=== PATIENT | male | born 2000 | race Caucasian/White ===

== ENCOUNTER 2023-05-22 22:53 | Emergency (ER) | payer OTHER, SELFPAY ==
[2023-05-22 22:57] VITALS: BP 137/81; PULSE 87; RESP 16; TEMP 36.9; O2SAT 98; BMI 38.4
--- NOTE | 2023-05-22 23:12 | ED.EAR1 ---
HPI - Ear Problem General Chief complaint: Ear Stated complaint: Earache, Nausea/Vomiting Time Seen by Provider: 05/22/23 23:09 Source: patient Mode of arrival: walk-in Limitations: no limitations History of Present Illness HPI Narrative: states he finished antibiotics for ear infection last week. Today acute onset of ear pressure. Feels like someone is cuffing his ear with their hand. Has pain of both ears and has been vomiting. Was dry heaving and at the end of dry heaving brought up some blood. No abdominal pain. Nausea was worse in the car on the way to the hospital. No fever or headache Related Data Home Medications Medication Instructions Recorded Confirmed No Known Home Medications 05/22/23 05/22/23 Allergies Allergy/AdvReac Type Severity Reaction Status Date / Time clindamycin Allergy Unknown Verified 05/22/23 23:06 ventolin Allergy Unknown Uncoded 05/22/23 23:06 Review of Systems ROS Status of ROS 10 or more systems reviewed and unremarkable except as noted in history and below [facility] Social History Smoking status: Current every day smoker Exam Constitutional Vital Signs, click to edit/add: Last Vital Signs Temp 98.5 F 05/22/23 22:57 Pulse 87 05/22/23 22:57 Resp 16 05/22/23 22:57 BP 137/81 05/22/23 22:57 Pulse Ox 98 05/22/23 22:57 O2 Del Method Room Air 05/22/23 22:57 Common normals: no apparent distress, average body habitus, oriented x3, no limitations, healthy appearing, alert and well nourished [facility] Common normals: normocephalic and head/scalp atraumatic Other: bilat red TM Eye Common normals: EOMs intact bilaterally and conjunctivae normal Respiratory Common normals: normal respiratory effort, no retractions and no use of accessory muscles Cardio Common normals: regular rate, regular rhythm, S1 normal heart sound and S2 normal heart sound GI Common normals: Normal to inspection, nondistended, normoactive bowel sounds present, soft to palpation and non-tender Extremity Common normals: normal to inspection and full ROM Neuro Common normals: oriented x3, CN's II-XII intact bilaterally, moves all extremities and no focal motor deficits Psych Appearance: grossly normal Course Vital Signs Vital signs: Vital Signs Temperature 98.5 F 05/22/23 22:57 Pulse Rate 87 05/22/23 22:57 Respiratory Rate 16 05/22/23 22:57 Blood Pressure 137/81 05/22/23 22:57 Pulse Oximetry 98 05/22/23 22:57 Oxygen Delivery Method Room Air 05/22/23 22:57 Temperature 98.5 F 05/22/23 22:57 Pulse Rate 87 05/22/23 22:57 Respiratory Rate 16 05/22/23 22:57 Blood Pressure 137/81 05/22/23 22:57 Pulse Oximetry 98 05/22/23 22:57 Oxygen Delivery Method Room Air 05/22/23 22:57 Medical Decision Making MDM Narrative Medical decision making narrative: patient presents with bilat ear pain. Found to have bilat otitis media. ear pain associated with nausea and vomiting. Symptoms of nausea worse when he was riding in the car. Was dry heaving before coming in and states did have some blood a the end of dry heaving. Feeling better after treatment in the department with zofran, Rocephin and solumedrol. Discharged with augmentin and zofran and is recommended to follow up with his doctor in the next couple of days Discharge Plan Discharge Chief Complaint: Ear Clinical Impression: Otitis media, Nausea & vomiting Patient Disposition: Home, Self-Care Prescriptions / Home Meds: No Action No Known Home Medications Instructions: Ear Infection (ED), Acute Nausea and Vomiting (DC) Additional Instructions: follow up with Dr Maurer within a couple of days Stand Alone Forms: Portal Instructions Referrals: Randy Maurer DO [Primary Care Provider] - 1 week
[2023-05-22 23:50] LABS: Basophils Absolute Auto 0.1 10^3/uL (0.0-0.1); Basophils Percent Auto 0.8 % (0.2-2.0); Eosinophils Absolute Auto 0.4 10^3/uL (0.0-0.7); Eosinophils Percent Auto 3.4 % (0.9-7.0); Hematocrit 48.1 % (42.0-54.0); Hemoglobin 16.4 g/dL (14.0-18.0); Immature Granulocytes Abs Auto 0.04 10^3/uL (0.00-0.03); Immature Granulocytes Pct Auto 0.4 % (0.0-0.5); Lymphocytes Absolute Auto 2.8 10^3/uL (1.2-3.8); Lymphocytes Percent Auto 27.2 % (20.5-60.0); Mean Corpuscular HGB Conc 34.1 g/dL (29.9-35.2); Mean Corpuscular Hemoglobin 30.8 pg (25.9-34.0); Mean Corpuscular Volume 90.2 fL (80.0-94.0); Mean Platelet Volume 10.5 fL (9.5-13.5); Monocytes Absolute Auto 0.8 10^3/uL (0.3-0.8); Neutrophils Absolute Auto 6.3 10^3/uL (1.4-6.5); Neutrophils Percent Auto 60.2 % (43.0-75.0); Platelet Count 262 10^3/uL (150-450); Red Blood Count 5.33 10^6/uL (4.70-6.10); Red Cell Distribution Width 12.5 % (11.0-15.0); White Blood Count 10.4 10^3/uL (4.0-11.0)
[2023-05-22] MEDS: ONDANSETRON PF 4 MG/2 ML VIAL IV (23:54)
[2023-05-22] MEDS: 0.9 % SODIUM CHLORIDE 1,000 ML 999 ML IV (23:55)
[2023-05-22] MEDS: CEFTRIAXONE 1,000 MG in 0.9 % SODIUM CHLORIDE 50 ML 100 MG IV (23:55)
[2023-05-22] MEDS: METHYLPREDNISOLONE SOD SUCC PF 125 MG/2 ML VIAL IVP (23:55)
[2023-05-23 00:04] LABS: Anion Gap 12.5; BUN Creatinine Ratio 17.4; Calcium 8.7 mg/dL (8.5-10.1); Carbon Dioxide 28.7 mmol/L (21.0-32.0); Chloride 106 mmol/L (98-107); Estimated GFR (African America >60 (>=60); Estimated GFR (Non-African Ame >60 (>=60); Glucose 82 mg/dL (74-106); Potassium 4.2 mmol/L (3.5-5.1); Sodium 143 mmol/L (136-145)
== END 2023-05-23 01:24 | disposition home or self-care (01) ==
PROVIDERS: Emergency Provider Internal Medicine; PCP Internal Medicine
DX: H66.93 Otitis media, unspecified, bilateral (principal); R11.2 Nausea with vomiting, unspecified; F17.210 Nicotine dependence, cigarettes, uncomplicated
CPT/HCPCS: 36415; 80048; 85025; 96361; 96365; 96375; 99284; J2930

== ENCOUNTER 2023-10-15 21:48 | Emergency (ER) | payer OTHER, SELFPAY ==
--- OUTSIDE RECORDS SUMMARY | 2023-10-15 21:54 | XMS_ITS | CCD ---
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 Name Role Phone TREY LEMA Primary Care Physician Asmita Linares Attending Unavailable MADDIE HAGEN Attending Unavailable Srikanth Mathews Attending Unavailable SALAMBebeto Attending Unavailable SALAMBebeto Attending Unavailable SALAMBebeto Attending Unavailable SALAMBebeto Admitting Unavailable Jeremy Griffin Attending Unavailable MEAGHAN IVY Attending Unavailable Allergies Allergy Classification Reported Allergen(s) Allergy Type Date of Onset Reaction(s) Facility (16 sources) Albuterol; Translations: [albuterol] Drug Allergy Unknown [facility] (20 sources) Clindamycin; Translations: [clindamycin topical] Drug Allergy 2 Swelling (morphologic abnormality), Eruption of skin (disorder) [facility] Comment on above: applied to pimple on lip and had localized swelling of lip (1 source) Clindamycin; Translations: [Clindagel] Drug Allergy 2 [facility] Repository Medications Current Medications Medication Drug Class(es) Dates Sig (Normalized) Sig (Original) budesonide 3 mg delayed release oral capsule (5 sources) Corticosteroid Start: 05-13-2022 take 3 capsules by mouth once daily in the morning budesonide 3 mg oral delayed release capsule 9 mg = 3 cap(s), Oral, qAM, # 90 cap(s), Refills(s) 0, Pharmacy: [facility], 180, cm, 05/13/22 13:52:00 EDT, Height/Length Dosing, 124, kg, 05/13/22 13:52:00 EDT, Weight Dosing Start Date: 05/13/22 Status: Ordered dicyclomine hydrochloride 20 mg oral tablet (11 sources) Anticholinergic Start: 04-09-2022 End: 05-17-2022 take 1 tablet by mouth four times daily as needed for muscle spasms dicyclomine 20 mg Tab 20 mg = 1 tab(s), Oral, QID, PRN Spasm, Refills(s) 0 Start Date: 04/09/22 Status: Ordered Start: 03-23-2022 End: 03-30-2022 take 1 tablet by mouth three times daily dicyclomine 20 mg Tab 20 mg = 1 tab(s), Oral, TID, X 7 day(s), # 21 tab(s), Refills(s) 0, Pharmacy: [facility], 180, cm, 03/23/22 6:35:00 EDT, Height/Length Dosing, 127.1, kg, 03/23/22 6:35:00 EDT, Weight Dosing Start Date: 03/23/22 Stop Date: 03/30/22 Status: Ordered famotidine 40 mg oral tablet (2 sources) Histamine-2 Receptor Antagonist Start: 04-09-2022 take 1 tablet by mouth once daily at bedtime Pepcid 40 mg Tab 40 mg = 1 tab(s), Oral, Once a day (at bedtime), Refills(s) 0, Control of stomach acid Start Date: 04/09/22 Status: Ordered hydrocortisone 5 mg/ml topical cream (1 source) Corticosteroid Start: 01-16-2023 End: 01-21-2023 hydrocortisone Top 0.5% Crm 1 larisa, Topical, BID for 5 day(s), 14 gm, Refill(s) 0, [facility], 180, cm, 01/16/23 13:30:00 EDT, Height/Length Dosing, 77.5, kg, 01/16/23 13:30:00 EDT, Weight Dosing Start Date: 01/16/23 Stop Date: 01/21/23 Status: Ordered meclizine hydrochloride 25 mg chewable tablet (9 sources) Antiemetic Start: 04-07-2022 take 1 tablet by mouth three times daily as needed for dizziness meclizine 25 mg oral tablet, chewable 25 mg = 1 tab(s), Chewed, TID, PRN for dizziness, # 30 tab(s), Refills(s) 0, Pharmacy: [facility], 180, cm, 04/07/22 17:06:00 EDT, Height/Length Dosing, 127, kg, 04/07/22 17:06:00 EDT, Weight Dosing Start Date: 04/07/22 Status: Ordered mupirocin 0.02 mg/mg topical ointment (1 source) RNA Synthetase Inhibitor Antibacterial Start: 02-05-2022 End: 02-12-2022 mupirocin Top 2% Oint 1 larisa, Topical, TID for 7 day(s), 22 gm, Refill(s) 0, [id number], 176.5, cm, 02/05/22 15:44:00 EDT, Height/Length Dosing, 130.2, kg, 02/05/22 15:44:00 EDT, Weight Dosing Start Date: 02/05/22 Stop Date: 02/12/22 Status: Ordered naproxen 500 mg delayed release oral tablet (10 sources) Nonsteroidal Anti-inflammatory Drug Start: 03-29-2022 take 1 tablet by mouth twice daily as needed for pain naproxen 500 mg oral enteric coated tablet 500 mg = 1 tab(s), Oral, BID, PRN Pain, # 24 tab(s), Refills(s) 0, Pharmacy: [facility], 180.3, cm, 03/29/22 2:21:00 EDT, Height/Length Dosing, 127, kg, 03/29/22 2:21:00 EDT, Weight Dosing Start Date: 03/29/22 Status: Ordered omeprazole 40 mg delayed release oral capsule (15 sources) Proton Pump Inhibitor Start: 04-09-2022 take 1 capsule by mouth once daily omeprazole 40 mg Cap-DR 40 mg = 1 cap(s), Oral, Daily, # 90 cap(s), Refills(s) 0, Pharmacy: [facility], 180, cm, 04/21/22 10:10:00 EDT, Height/Length Dosing, 126.6, kg, 04/21/22 10:10:00 EDT, Weight Dosing Start Date: 05/03/22 Status: Ordered Start: 03-23-2022 End: 03-30-2022 take 1 capsule by mouth once daily omeprazole 40 mg Cap-DR 40 mg = 1 cap(s), Oral, Daily, X 7 day(s), # 7 cap(s), Refills(s) 0, Pharmacy: [facility], 180, cm, 03/23/22 6:35:00 EDT, Height/Length Dosing, 127.1, kg, 03/23/22 6:35:00 EDT, Weight Dosing Start Date: 03/23/22 Stop Date: 03/30/22 Status: Ordered ondansetron 4 mg oral tablet (12 sources) Serotonin-3 Receptor Antagonist Start: 11-25-2020 take 1 tablet by mouth four times daily as needed for nausea Zofran ODT 4 mg Tab 4 mg = 1 tab(s), Oral, QID, PRN Nausea/Vomiting, # 8 tab(s), Refills(s) 0 Start Date: 11/25/20 Status: Ordered polyethylene glycol 3350 332045 mg / potassium chloride 1480 mg / sodium bicarbonate 5720 mg / sodium chloride 95950 mg powder for oral solution (1 source) Osmotic Laxative Start: 04-12-2022 NuLYTELY [place] oral powder for reconstitution See Instructions, 1 EA, Refill(s) 0, Prior to colonoscopy., [facility], 180, cm, 04/12/22 9:35:00 EDT, Height/Length Dosing, 126.6, kg, 04/12/22 9:35:00 EDT, Weight Dosing Start Date: 04/12/22 Status: Ordered predniSONE 20 mg oral tablet (12 sources) Start: 01-20-2021 take 3 tablets by mouth once daily predniSONE 20 mg Tab 3, Oral, Daily, # 15 tab(s), Refills(s) 0, Pharmacy: [facility] #[id number], 180, cm, 01/20/21 12:36:00 EDT, Height/Length Dosing, 126.3, kg, 01/20/21 12:36:00 EDT, Weight Dosing Start Date: 01/20/21 Status: Ordered promethazine hydrochloride 12.5 mg rectal suppository (20 sources) Phenothiazine Start: 03-29-2022 take 12.5 mg rectal route every eight hours as needed for nausea Phenergan 12.5 mg Supp 12.5 mg = 1 supp, Rectal, q8hr, PRN Nausea, # 10 EA, Refills(s) 0, Pharmacy: [facility], 180.3, cm, 03/29/22 2:21:00 EDT, Height/Length Dosing, 127, kg, 03/29/22 2:21:00 EDT, Weight Dosing Start Date: 03/29/22 Status: Ordered Start: 03-23-2022 take 1 tablet by rashard th three times daily promethazine 25 mg Tab 25 mg = 1 tab(s), Oral, TID, # 15 tab(s), Refills(s) 0, Pharmacy: [facility], 180, cm, 03/23/22 6:35:00 EDT, Height/Length Dosing, 127.1, kg, 03/23/22 6:35:00 EDT, Weight Dosing Start Date: 03/23/22 Status: Ordered Start: 01-20-2021 take 5 mL by mouth e very six hours for cough Promethazine DM oral syrup 5 mL, Oral, q6hr for cough, 120 mL, Refill(s) 0, [id number], 180, cm, 01/20/21 12:36:00 EDT, Height/Length Dosing, 126.3, kg, 01/20/21 12:36:00 EDT, Weight Dosing Start Date: 01/20/21 Status: Ordered Zofran ODT 4 mg Tab-Dis (12 sources) Start: 03-29-2023 take 1 tablet by mouth every eight hours as needed for nausea Zofran ODT 4 mg Tab-Dis 4 mg = 1 tab(s), Oral, q8hr, PRN Nausea/Vomiting, # 16 tab(s), Refills(s) 0, Pharmacy: [facility], 180, cm, 03/29/23 2:12:00 EDT, Height/Length Dosing, 126.5, kg, 03/29/23 2:12:00 EDT, Weight Dosing Start Date: 03/29/23 Status: Ordered Start: 03-21-2022 take 1 tablet by rashard th every eight hours as needed for nausea Zofran ODT 4 mg Tab-Dis 4 mg = 1 tab(s), Oral, q8hr, PRN Nausea/Vomiting, # 12 tab(s), Refills(s) 0, Pharmacy: [facility], 176.5, cm, 03/21/22 3:54:00 EDT, Height/Length Dosing, 130.2, kg, 03/21/22 3:54:00 EDT, Weight Dosing Start Date: 03/21/22 Status: Ordered Problems Problem Classification Problem Date Documented Date Episodic/Chronic Abdominal pain (17 sources) Generalized abdominal pain; Translations: [Generalized abdominal pain] Onset: 04-12-2022 Episodic Asthma (12 sources) Asthma 08-19-2014 Chronic Conditions associated with dizziness or vertigo (1 source) Labyrinthitis; Translations: [Labyrinthitis, unspecified ear] Onset: 04-07-2022 Episodic Lymphadenitis (1 source) Nonspecific mesenteric adenitis; Translations: [Nonspecific mesenteric lymphadenitis] Onset: 03-29-2022 Episodic Nausea and vomiting (12 sources) Nausea; Translations: [Nausea] Onset: 03-21-2022 Episodic Noninfectious gastroenteritis (7 sources) Noninfectious enteritis; Translations: [Noninfective gastroenteritis and colitis, unspecified] Onset: 05-13-2022 Episodic Nonspecific chest pain (1 source) Chest pain; Translations: [Other chest pain] Onset: 05-04-2022 Episodic Other lower respiratory disease (1 source) Dyspnea; Translations: [Dyspnea, unspecified] Onset: 03-21-2022 Episodic Other nutritional; endocrine; and metabolic disorders (1 source) Obese class II; Translations: [Body mass index (BMI) 38.0-38.9, adult] Onset: 02-05-2022 Chronic Other skin disorders (1 source) Localized swelling, mass and lump, head; Translations: [Localized swelling, mass and lump, head] Onset: 02-05-2022 Episodic Other skin disorders (1 source) Eruption; Translations: [Rash and other nonspecific skin eruption] Onset: 01-16-2023 Episodic Other upper respiratory infections (1 source) Acute pharyngitis; Translations: [Acute pharyngitis, unspecified] Onset: 03-29-2023 Episodic Skin and subcutaneous tissue infections (1 source) Impetigo; Translations: [Impetigo, unspecified] Onset: 02-05-2022 Episodic Substance-related disorders (4 sources) Smoker 11-06-2022 Chronic Comment on above: Added secondary to d ocumentation in Social History. 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 Portions of this record may have been created with voice recognition artificial intelligence software, specifically [employer] and or [employer]. Substitutions may have occurred due to the inherent limitations of voice recognition and artificial intelligence software. Patient is a 22-year-old male who presents to convenient care, for right ear pain, states he started with sinus congestion, more maxillary, stuffy nose, clear drainage, had increased right ear pain, states he feels pressure in his ear, patient states symptoms also started with pressure right maxillary area worse than left, she has pressure in her left ear but not any pain, has been taking yoms-[id number]-[id number] Advil without any relief. Patient states he does not feel like he has any sinus infections at this time. Patient denies any headaches, dizziness, fevers, chills, nausea or vomiting, acute visual changes, respiratory infection, cough, sore throat, difficulty swallowing, chest pain, shortness of breath, or facial paresthesias. Review of Systems PHQ Score Initial Depression Screen Score: 0 Physical Exam Vitals & Measurements T: 36.8 ?C(Oral) HR: 80(Peripheral) BP: 126/82 SpO2: 99% HT: 71 in HT: 180 cm WT: 126 kg WT: 277.2 lb BMI: 38.89 General: Well developed, well nourished, in no acute distress, patient does not appear ill or septic, no respiratory disorders noted. Patient answers questions appropriately and in complete sentences, and follows commands appropriately. No facial droop, slurred speech, or difficulty swallowing is noted. Head: Normocephalic/atrau matic, no upper respiratory infections noted. Eyes: Pupils equal, round, and reactive to light. Conjunctivae and sclerae normal, Ears: Right TM is bulging, tenderness on exam, concerning for otitis media without otitis externa, perforated eardrum, drainage, bleeding. No cellulitis is noted. Left TM and external canal are both within normal limits. Mouth: No angioedema, swollen tongue, difficulty swallowing, uvula midline any redness or edema, no lesions in the hard soft palates, posterior fornix within normal limits. Neck: Trachea midline. No cervical lymphopathy. No meningeal signs. No mastoid tenderness. Lungs: Normal respiratory effort and clear to auscultation throughout, no wheezing, no rales, crackles, or decreased breath sounds noted on examination. Cardio: regular rate and rhythm, no murmur no chest wall tenderness. Extremity: Patient is able move all 4 extremities equally well no pain or weakness. Patient neurovascular intact. Neurologic: Grossly normal Skin: No rashes, ulcerations, or suspicious lesions Lymph Nodes: no lad Mental Status: alert, active Assessment/Plan 22-year-old male presented to [facility] care, for right otitis media, without any signs of otitis externa, lesions, bleeding, perforated eardrum, facial swellings, cellulitis noted. Patient did not appear ill or septic, no respiratory disorders noted. Patient was given a prescription for Zithromax, patient was instructed take nint-thm-mxvdsci ibuprofen Tylenol as needed for pain and fever, patient agreeable to plan. 1. Right otitis media (H66.91: Otitis media, unspecified, right ear) See above 2. BMI 38.0-38.9,adult (Z68.38: Body mass index [BMI] 38.0-38.9, adult) The standard range for ages 18 and older is >=18.5 and < 25 kg/m2. Your BMI today was above this range, this falls in the overweight to obese category and there are medical benefits to weight loss. We can offer counselling, referral, and/or medical support in addressing this problem. Your BMI and weight management will be followed at subsequent visits. 3. Cigarette smoker (F17.210: Nicotine dependence, cigarettes, uncomplicated) We strongly recommend to quit tobacco use. Cigarette smoking harms nearly every organ of the body, causes many diseases, and reduces the health of smokers in general. Quitting smoking lowers your risk for smoking-related diseases and can add years to your life. We encourage you to visit www.smokefree.gov access to helpful resources including free telephone support. If you decide on prescription treatment to help you quit, we would be happy to provide these. Follow-up With When Contact Information PITA TREY [address] [facility], [place] [address]- Additional Instructions: Patient Education Steps to Quit Smoking, Zxnr-it-Apkb BMI for Adults Otitis Media, Adult, Tcnl-ly-Jyes Problem List/Past Medical History Ongoing Asthma Generalized abdominal pain Ileitis Nausea and vomitin (more content not included)... Normal [facility] Comment on above: Result Comment: Elec tronically Signed By: XIAO TAVAREZ, MADDIE\.br\Date and Time Signed: 05/09/23 16:33 EDT Patient Educationon 05-09-20 Patient Education ENT Otitis Media, Adult Otitis media is a condition in which the middle ear is red and swollen (inflamed) and full of fluid. The middle ear is the part of the ear that contains bones for hearing as well as air that helps send sounds to the brain. The condition usually goes away on its own. What are the causes? This condition is caused by a blockage in the eustachian tube. This tube connects the middle ear to the back of the nose. It normally allows air into the middle ear. The blockage is caused by fluid or swelling. Problems that can cause blockage include: ? A cold or infection that affects the nose, mouth, or throat. ? Allergies. ? An irritant, such as tobacco smoke. ? Adenoids that have become large. The adenoids are soft tissue located in the back of the throat, behind the nose and the roof of the mouth. ? Growth or swelling in the upper part of the throat, just behind the nose (nasopharynx). ? Damage to the ear caused by a change in pressure. This is called barotrauma. What increases the risk? You are more likely to develop this condition if you: ? Smoke or are exposed to tobacco smoke. ? Have an opening in the roof of your mouth (cleft palate). ? Have acid reflux. ? Have problems in your body's defense system (immune system). What are the signs or symptoms? Symptoms of this condition include: ? Ear pain. ? Fever. ? Problems with hearing. ? Being tired. ? Fluid leaking from the ear. ? Ringing in the ear. How is this treated? This condition can go away on its own within 3?5 days. But if the condition is caused by germs (bacteria) and does not go away on its own, or if it keeps coming back, your doctor may: ? Give you antibiotic medicines. ? Give you medicines for pain. Follow these instructions at home: ? Take keca-uyr-zjceiuf and prescription medicines only as told by your doctor. ? If you were prescribed an antibiotic medicine, take it as told by your doctor. Do not stop taking it even if you start to feel better. ? Keep all follow-up visits. Contact a doctor if: ? You have bleeding from your nose. ? There is a lump on your neck. ? You are not feeling better in 5 days. ? You feel worse instead of better. Get help right away if: ? You have pain that is not helped with medicine. ? You have swelling, redness, or pain around your ear. ? You get a stiff neck. ? You cannot move part of your face (paralysis). ? You notice that the bone behind your ear hurts when you touch it. ? You get a very bad headache. Summary ? Otitis media means that the middle ear is red, swollen, and full of fluid. ? This condition usually goes away on its own. ? If the problem does not go away, treatment may be needed. You may be given medicines to treat the infection or to treat your pain. ? If you were prescribed an antibiotic medicine, take it as told by your doctor. Do not stop taking it even if you start to feel better. ? Keep all follow-up visits. This information is not intended to replace advice given to you by your health care provider. Make sure you discuss any questions you have with your health care provider. Document Revised: 10/26/2021 Document Reviewed: 10/26/2021 [employer] Patient Education ? 2022 [employer] Nutrition BMI for Adults What is BMI? Body mass index (BMI) is a number that is calculated from a person's weight and height. BMI can help estimate how much of a person's weight is composed of fat. BMI does not measure body fat directly. Rather, it is an alternative to procedures that directly measure body fat, which can be difficult and expensive. BMI can help identify people who may be at higher risk for certain medical problems. What are BMI measurements used for? BMI is used as a screening tool to identify possible weight problems. It helps determine whether a person is obese, overweight, a healthy weight, or underweight. BMI is useful for: ? Identifying a weight problem that may be related to a medical condition or may increase the risk for medical problems. ? Promoting changes, such as changes in diet and exercise, to help reach a healthy weight. BMI screening can be repeated to see if these changes are working. How is BMI calculated? BMI involves measuring your weight in relation to your height. Both height and weight are measured, and the BMI is calculated from those numbers. This can be done either in [place] ([place] or metric measurements. Note that charts and online BMI calculators are available to help you find your BMI quickly and easily without having to do these calculations yourself. To calculate your BMI in [place] ([place] measurements: 1. Measure your weight in pounds (lb). 2. Multiply the number of pounds by 703. ? For example, for a person who weighs 180 lb, multiply that number by 703, which equals 126,540. 3. Measure your height in inches. Then multiply that number by itself to ge (more content not included)... Normal [facility] Consent for Treatmenton 03-02 Consent for Treatment [id number]:127 [facility] Discharge Instructionson Discharge Instructions [id number]:127 [facility] ED Clinical Summaryon 2022 ED Clinical Summary [place] [id number] ED Clinical Summary Person [facility] Age[facility] 22 Years : 2000 Sex: Male Language: Thai PCP: TREY LEMA DO Marital Status: Single Phone: [phone] Visit Id: Visit Reason: Throat pain - Adult; Abdominal pain; neck and throat pain Speciality: Acuity: 3 Enc Type: Emergency Med Service: Emergency Arrival: 03/29/2023 02:02:24 Discharge: 03/29/2023 03:10:42 LOS: 000 01:08 Checkin: 03/29/2023 02:02:24 Checkout: 03/29/2023 03:10:42 Dispo Type: Home (Routine DC) EVENTS: Event Name Event Status Request Date/Time Start Date/Time Complete Date/Time Arrive Complete 03/29/2023 02:02:24 03/29/2023 02:02:24 03/29/2023 02:02:24 Document Home Meds Request 03/29/2023 02:02:24 Triage Complete 03/29/2023 02:02:24 03/29/2023 02:12:48 03/29/2023 02:12:48 Registration Complete 03/29/2023 02:07:39 03/29/2023 02:07:39 03/29/2023 02:07:39 Reg Complete Request 03/29/2023 02:07:39 Dr Exam Complete 03/29/2023 02:10:47 03/29/2023 02:10:47 03/29/2023 02:10:47 Registration Start 03/29/2023 02:10:47 03/29/2023 02:12:58 Bed Assign Complete 03/29/2023 02:12:58 03/29/2023 02:12:58 03/29/2023 02:12:58 RN Exam Complete 03/29/2023 02:12:58 03/29/2023 02:22:51 03/29/2023 02:22:51 Pending Labs Complete 03/29/2023 02:21:09 03/29/2023 02:50:05 Lab Complete 03/29/2023 02:21:09 03/29/2023 02:50:05 Meds Admin Complete 03/29/2023 02:21:09 03/29/2023 02:34:44 Pending Labs Inlab 03/29/2023 02:46:58 03/29/2023 02:46:58 Discharge Complete 03/29/2023 03:00:28 03/29/2023 03:10:53 03/29/2023 03:10:53 Transfer Complete 03/29/2023 03:10:53 03/29/2023 03:10:53 03/29/2023 03:10:53 ADDRESS: [address] [place] [address] [place] [phone] PHYS DOC NOTES: MEDICAL INFORMATION: Prescriptions Given: Medications to Continue Taking That Have Changed [facility], [address] [place], [place] [id number], [phone] START: ondansetron (Zofran ODT 4 mg Tab-Dis) 1 Tablets By Mouth every 8 hours as needed Nausea/Vomiting. Refills: 0. Other Medications START: ondansetron (Zofran ODT 4 mg Tab) 1 Tablets By Mouth 4 times a day as needed Nausea/Vomiting. Refills: 0. START: ondansetron (Zofran ODT 4 mg Tab-Dis) 1 Tablets By Mouth every 8 hours as needed Nausea/Vomiting. Refills: 0. Medications to Continue with No Changes Other Medications budesonide (budesonide 3 mg oral delayed release capsule) 3 Capsules By Mouth once a day (in the morning). Refills: 0. dextromethorphan-pr omethazine (Promethazine DM oral syrup) 5 Milliliter By Mouth every 6 hours as needed for cough. Refills: 0. dicyclomine (dicyclomine 20 mg Tab) 1 Tablets By Mouth 4 times a day as needed Spasm. meclizine (meclizine 25 mg oral tablet, chewable) 1 Tablets Chewed 3 times a day as needed for dizziness. Refills: 0. naproxen (naproxen 500 mg oral enteric coated tablet) 1 Tablets By Mouth 2 times a day as needed Pain. Refills: 0. omeprazole (omeprazole 40 mg Cap-DR) 1 Capsules By Mouth every day. omeprazole (omeprazole 40 mg Cap-DR) 1 Capsules By Mouth every day. Refills: 0. predniSONE (predniSONE 20 mg Tab) 3 By Mouth every day. Refills: 0. promethazine (promethazine 25 mg Tab) 1 Tablets By Mouth 3 times a day. Refills: 0. PATIENT EDUCATION INFORMATION: Instructions: Pharyngitis Follow up: With: Address: When: TREY LEMA [address] [facility] [place] [address] Business (1) In 3 days DIAGNOSIS: Acute pharyngitis Normal [facility] ED Note-Physicianon 03-29-20 ED Note-Physician Basic Information Time Seen: Jeremy Griffin DOBonifacio 03/29/2023 02:10 Chief Complaint ABD discomfort, throat pain, and neck pain since 0100. History of Present Illness HPI: Patient is a 22-year-old male with past ministry of asthma presents the ED for sore throat and nausea. Patient states that this for started yesterday with a mild sore throat and some nausea. Since then the sore throat has become much worse and he is having some dry cough associated with this. He took some Tylenol throughout the day which seemed to help a little. He still able to swallow liquids without difficulty. He denies any fever that he is aware of. ROS: Pertinent review of systems conducted and is negative except as noted above. Physical exam: General: nontoxic appearing and in no distress HEENT: Mucous membranes moist. Bilateral symmetrical tonsillar enlargement. No exudate. Uvula is midline. Posterior pharynx is patent. Handling secretions without difficulty. No muffling of the voice. Neuro: awake and alert Neck: supple, trachea midline. Anterior cervical adenopathy. Card: Heart regular rate and rhythm no murmur Resp: Lungs clear to auscultation no wheeze or rhonchi Abd: Soft and nondistended. No tenderness to palpation with no rebound or guarding. Ext: No gross deformity or edema Physical Exam Vitals & Measurements T: 36.5 ?C(Oral) HR: 80(Peripheral) RR: 16 BP: 152/101 SpO2: 99% HT: 180 cm WT: 126.5 kg BMI: 39.04 Medical Decision Making MEDICAL DECISION MAKING Number and Complexity of Problems Differential Diagnosis: [] MDM Data External documents reviewed: N/A My EKG interpretation: Noted in chart if applicable My CT interpretation: N/A My X-ray interpretation: Noted in chart if applicable My Ultrasound interpretation: N/A Decision rules/scores evaluated: N/A Discussed with: N/A Treatment and Disposition ED Course: Patient is nontoxic-appearing and in no distress. Is afebrile here in the ED. His pharynx is patent he has no asymmetry or findings consistent with peritonsillar abscess at this time. Will obtain a Monospot as well as a rapid strep test. Rapid strep is negative. His Monospot does test positive. I discussed this with the patient and he states that he actually was diagnosed with mono within the last year and at least one of the time before that. I suspect this may be a continued positive from that episode but regardless I do feel this is likely a viral pharyngitis. I offered him a dose of dexamethasone but he states he does not feel good when he takes steroids so he would rather hold off on this. We will give him a short prescription for Zofran as needed for nausea. We discussed taking Tylenol and Motrin as needed and oral hydration and close follow-up with his primary care physician. Patient states understanding agreement with plan is discharged stable condition. Shared decision making: As above Code status: N/A Assessment/Plan Acute pharyngitis (J02.9: Acute pharyngitis, unspecified) Orders: ondansetron, 4 mg = 1 tab(s), Tab-Dis, Oral, Once, Stop date 03/29/23 2:20:00 EDT, STAT, Start date 03/29/23 2:20:00 EDT, 03/29/23 2:20:00 EDT ondansetron, 4 mg = 1 tab(s), Oral, q8hr, PRN Nausea/Vomiting, # 16 tab(s), Refills(s) 0, Pharmacy: [facility], 180, cm, 03/29/23 2:12:00 EDT, Height/Length Dosing, 126.5, kg, 03/29/23 2:12:00 EDT, Weight Dosing Group A Strep by PCR Mononucleosis Screen Rapid Strep w/rfx Medications Administered Given ondansetron 4 mg Dis Tab, 4 mg, Oral Disposition Plan Discharge Prescription List Prescriptions Zofran ODT 4 mg Tab-Dis, 4 mg= 1 tab(s), Oral, q8hr, PRN Follow-up With When Contact Information TREY PITA In 3 days [address] [facility], [place] [id number] [facility] (1) Additional Instructions: Patient Education Pharyngitis Problem List/Past Medical History Ongoing Asthma Generalized abdominal pain Ileitis Nausea and vomiting Smoker Historical Abdominal pain Procedure/Surgical History Colonoscopy (04/21/2022), EGD (esophagogastroduod enoscopy) gastric outlet reduction (04/21/2022), Colonoscopy, EGD - Esophagogastroduode noscopy. Medications Inpatient ondansetron 4 mg Dis Tab, 4 mg= 1 tab(s), Oral, Once Home budesonide 3 mg oral delayed release capsule, 9 mg= 3 cap(s), Oral, qAM, Not taking dicyclomine 20 mg Tab, 20 mg= 1 tab(s), Oral, QID, PRN, Not taking meclizine 25 mg oral tablet, chewable, 25 mg= 1 tab(s), Chewed, TID, PRN, Not taking naproxen 500 mg oral enteric coated tablet, 500 mg= 1 tab(s), Oral, BID, PRN, Not taking omeprazole 40 mg Cap-DR, 40 mg= 1 cap(s), Oral, Daily, Not taking omeprazole 40 mg Cap-DR, 40 mg= 1 cap(s), Oral, Daily, Not taking predniSONE 20 mg Tab, 3, Oral, Daily, Not taking promethazine 25 mg Tab, 25 mg= 1 tab(s), Oral, TID, Not taking Promethazine DM oral syrup, 5 mL, Oral, q6hr, PRN, Not taking Zofran ODT 4 mg Tab, 4 mg= 1 tab(s), Oral, QID, PRN, Not taking Zofran ODT (more content not included)... Normal [facility] Comment on above: Result Comment: Elec tronically Signed By: Jeremy Griffin DO\.br\Date and Time Signed: 03/29/23 03:02 EDT ED Patient Education Noteon 03-29-2023 ED Patient Education Note Infectious Disease Pharyngitis Pharyngitis is inflammation of the throat (pharynx). It is a very common cause of sore throat. Pharyngitis can be caused by a bacteria, but it is usually caused by a virus. Most cases of pharyngitis get better on their own without treatment. What are the causes? This condition may be caused by: ? Infection by viruses (viral). Viral pharyngitis spreads easily from person to person (is contagious) through coughing, sneezing, and sharing of personal items or utensils such as cups, forks, spoons, and toothbrushes. ? Infection by bacteria (bacterial). Bacterial pharyngitis may be spread by touching the nose or face after coming in contact with the bacteria, or through close contact, such as kissing. ? Allergies. Allergies can cause buildup of mucus in the throat (post-nasal drip), leading to inflammation and irritation. Allergies can also cause blocked nasal passages, forcing breathing through the mouth, which dries and irritates the throat. What increases the risk? You are more likely to develop this condition if: ? You are 5?24 years old. ? You are exposed to crowded environments such as daycare, school, or dormitory living. ? You live in a cold climate. ? You have a weakened disease-fighting (immune) system. What are the signs or symptoms? Symptoms of this condition vary by the cause. Common symptoms of this condition include: ? Sore throat. ? Fatigue. ? Low-grade fever. ? Stuffy nose (nasal congestion) and cough. ? Headache. Other symptoms may include: ? Glands in the neck (lymph nodes) that are swollen. ? Skin rashes. ? Plaque-like film on the throat or tonsils. This is often a symptom of bacterial pharyngitis. ? Vomiting. ? Red, itchy eyes (conjunctivitis). ? Loss of appetite. ? Joint pain and muscle aches. ? Enlarged tonsils. How is this diagnosed? This condition may be diagnosed based on your medical history and a physical exam. Your health care provider will ask you questions about your illness and your symptoms. A swab of your throat may be done to check for bacteria (rapid strep test). Other lab tests may also be done, depending on the suspected cause, but these are rare. How is this treated? Many times, treatment is not needed for this condition. Pharyngitis usually gets better in 3?4 days without treatment. Bacterial pharyngitis may be treated with antibiotic medicines. Follow these instructions at home: Medicines ? Take bscz-zpj-foscljt and prescription medicines only as told by your health care provider. ? If you were prescribed an antibiotic medicine, take it as told by your health care provider. Do not stop taking the antibiotic even if you start to feel better. ? Use throat sprays to soothe your throat as told by your health care provider. ? Children can get pharyngitis. Do not give your child aspirin because of the association with Chanel's syndrome. Managing pain To help with pain, try: ? Sipping warm liquids, such as broth, herbal tea, or warm water. ? Eating or drinking cold or frozen liquids, such as frozen ice pops. ? Gargling with a mixture of salt and water 3?4 times a day or as needed. To make salt water, completely dissolve ??1 tsp (3?6 g) of salt in 1 cup (237 mL) of warm water. ? Sucking on hard candy or throat lozenges. ? Putting a cool-mist humidifier in your bedroom at night to moisten the air. ? Sitting in the bathroom with the door closed for 5?10 minutes while you run hot water in the shower. General instructions ? Do not use any products that contain nicotine or tobacco. These products include cigarettes, chewing tobacco, and vaping devices, such as e-cigarettes. If you need help quitting, ask your health care provider. ? Rest as told by your health care provider. ? Drink enough fluid to keep your urine pale yellow. How is this prevented? To help prevent becoming infected or spreading infection: ? Wash your hands often with soap and water for at least 20 seconds. If soap and water are not available, use hand truck operator. ? Do not touch your eyes, nose, or mouth with unwashed hands, and wash hands after touching these areas. ? Do not share cups or eating utensils. ? Avoid close contact with people who are sick. Contact a health care provider if: ? You have large, tender lumps in your neck. ? You have a rash. ? You cough up green, yellow-brown, or bloody mucus. Get help right away if: ? Your neck becomes stiff. ? You drool or are unable to swallow liquids. ? You cannot drink or take medicines without vomiting. ? You have severe pain that does not go away, even after you take medicine. ? You have trouble breathing, and it is not caused by a stuffy nose. ? You have new pain and swelling in your joints such as the knees, ankles, wrists, or elbows. These symptoms may represent a serious problem that is a (more content not included)... Normal [facility] ED Patient Summaryon 023 ED Patient Summary [address] [address] Patient Discharge Instructions Person Information Name: CORBY LAW Age: 22 Years Arrival Date: 03/29/2023 02:02:24 Discharge Diagnosis: Acute pharyngitis Primary Care Physician: TREY LEMA DO Provider Information Primary Provider: Jeremy Griffin DO Advanced Executive Officer:None The exam and treatment you received in the Emergency Department were for an urgent problem and are not intended as complete care. It is important that you follow up with a doctor, nurse practitioner, or physician?s contact center assistant for ongoing care. If your symptoms become worse or you do not improve as expected and you are unable to reach your usual health care provider, you should return to the Emergency Department. We are available 24 hours a day. ANI CORBY Omega has been given the following list of patient education materials, prescriptions and follow-up instructions: Follow-up Instructions: With: Address: When: TREY LEMA [address] [place] [address] Business (1) In 3 days In the event that this physician does not participate in your insurance network, please consult with your insurance company to find a nearby participating provider. Patient Education Materials: Pharyngitis A MESSAGE TO ALL PATIENTS REGARDING OPIOIDS PRESCRIPTION OPIOIDS: WHAT YOU NEED TO KNOW Prescription opioids can be used to help relieve rugopudr-zj-rinmef pain and are often prescribed following a surgery or injury, or for certain health conditions. These medications can be an important part of the treatment but also come with serious risks. It is important to work with your healthcare provider to make sure you are getting the safest, most effective care. WHAT ARE THE RISKS AND SIDE EFFECTS OF OPIOID USE? Prescription opioids carry serious risks of addiction and overdose, especially with prolonged use. An opioid overdose, often marked by slowed breathing, can cause sudden . The use of prescription opioids can have a number of side effects as well, even when taken as directed: ? Tolerance?meaning you might need to take more of the medication for the same pain relief ? Physical dependence?meaning you have symptoms of withdrawal when a medication is stopped ? Increased sensitivity to pain ? Constipation ? Nausea, vomiting, and dry mouth ? Sleepiness and dizziness ? Confusion ? Depression ? Low levels of testosterone that can result in lower sex drive, energy, and strength ? Itching and sweating RISKS ARE GREATER WITH: ? History of drug misuse, substance use disorder, or overdose ? Mental health conditions (such as depression or anxiety) ? Sleep apnea ? Older age (65 years and older) ? Avoid alcohol while taking prescription opioids. Also, unless specifically advised by your health care provider, medications to avoid include: ? Benzodiazepines (such as Xanax or Valium) ? Muscle relaxants (such as Soma or Flexeril) ? Hypnotics (such as Ambien or Lunesta) ? Other prescription opioids KNOW YOUR OPTIONS Talk to your health care provider about ways to manage your pain that don?t involve prescription opioids. Some of these options may actually work better and have fewer risks and side effects. Options may include: ? Pain relievers such as acetaminophen, ibuprofen, and naproxen ? Some medication that are also used for depression or seizures ? Physical therapy and exercise ? Cognitive behavioral therapy, a psychological, goal-directed approach, in which patients learn how to modify physical, behavioral, and emotional triggers of pain and stress. IF YOU ARE PRESCRIBED OPIOIDS FOR PAIN: ? Never take opioids in greater amounts or more often than prescribed. ? Follow up with your primary health care provider. o Work together to create a plan on how to manage your pain. o Talk about ways to help manage your pain that don?t involve prescription opioids. o Talk about any and all concerns and side effects. ? Help prevent misuse and abuse o Never sell or share prescription opioids. o Never use another person?s prescription opioids. ? Store prescription opioids in a secure place and out of reach of others (this may include visitors, children, friends, and family). ? Safely dispose of unused prescription opioids: Find your community drug take-back program or your pharmacy mail-back program, or flush them down the toilet, following guidance from the Food and Drug Administration (www.fda.gov/Drugs/ ResourcesForYou). ? Visit www.cdc.gov/drugove rdose to learn about the risks of opioids abuse and overdose. ? If you believe you may be struggling with addiction, tell your health point of care specialist and ask for guidance or call [facility]?S National Helpline at 5-418-311-YZJX. q Source: Department of Health and Human Servic (more content not included)... Normal [facility] Grp A Strp PCRon 03-29-2023 Group A Strep Negative Normal [facility] Comment on above: Order Comment: Order Added on by Discern Rule. Result Comment: Test ing performed using DNA amplification. Performed By: #### 1 [id number] ####[facility] [id number] [place] [address] Grp A Strp Intrl Ctrl Pass Normal [facility] Comment on above: Order Comment: Order Added on by Discern Rule. Performed By: #### 1 [id number] ####[facility] [address] [place] [address] MICRO OTHER TESTSOrdered By: Bandar Forte on 03-29-2023 S. pyogenes Ag IA.rapid Ql (Throat) Negative (03/29/23 2:31 AM) Normal Negative [facility] S[address] [place] Screenon 03-29-2023 Heterophile Ab LA Ql (S) Positive Abnormal Negative [facility] Comment on above: Performed By: #### 2 [id number] ####[facility] [address] [place] [address] Rapid Strep w/rfxon 03-29-20 S. pyogenes Ag IA.rapid Ql (Throat) Negative Normal Negative [facility] Comment on above: Performed By: #### 1 [id number] ####[facility] [id number] [place] [address] SEROLOGYOrdered By: Bandar mckeon on 03-29-2023 Heterophile Ab LA Ql (S) Positive *ABN* (03/29/23 2:30 AM) Invalid Interpretation Code Negative [facility] Sero [facility] Office/Clini c Noteon 01-16-2023 Family Medicine Office/Clinic Note Chief Complaint est- spots on hands HPI Staff complaints of red spots Onset: 1 days Characteristics: red spots on palms of hands that itch and sting OTC tried: none History of Present Illness I have reviewed and verified the staff HPI to be accurate for this encounter. Portions of this record have been created with voice recognition software. Occasional wrong-word or ?yqinx-s-mlkd? substitutions may have occurred due to the inherent limitations of voice recognition software. 22 yo male presents today with cc of red spots. pt states he noticed a couple of red spots on palms of hands that itch and sting. He denies any other rash she denies any viral symptoms such as runny stuffy nose ear pain sore throat nasal congestion or cough. He has not tried any modifying factors or hiav-lyb-ueqnqsz treatments. He states he had a cookout today and wanted to make sure that he did not give a rash anybody else. Denies any rash at the bottom of his feet or mouth sores. States the top of his right mouth is sore but he also had a filling done 2 days ago on Tuesday and then was out drinking with some friends and had a cigar over the weekend. He has no other concerns at this time. Review of Systems PHQ Score Initial Depression Screen Score: 0 Physical Exam Vitals & Measurements HR: 75(Peripheral) BP: 112/80 SpO2: 98% HT: 71 in HT: 180 cm WT: 77.5 kg WT: 170.5 lb BMI: 23.92 General: Well developed, well nourished, in no acute distress Eyes: not assessed Ears: No deformity or lesion of external ear. Canals and TM appear normal bilaterally. TM?s intact, not inflamed, with normal light reflex. Hearing grossly normal to conversational speech Nose: No deformity, discharge, inflammation, or lesions Mouth: Mucous membranes moist. Normal oropharynx, and posterior pharynx without lesions or exudates. Tongue normal no tonsillar erythema or exudate no signs of peritonsillar abscess no trismus or drooling. Uvula is midline. No oral ulcerations or lesions. Neck: no adenopathy Lungs: clear to auscultation throughout, no wheezing, no rales. No respiratory distress Cardio: regular rate and rhythm, no murmur Abdomen: not assessed Musculoskeletal: No deformity or scoliosis noted. Normal range of motion. Joints normal. No erythema, edema, effusion, or ecchymosis Extremity: No clubbing, cyanosis, edema, or deformity, with normal ROM in both upper and lower bilateral extremities Neurologic: not assessed Skin: At the palms of the hands patient seems to be somewhat blotchy do not believe he has any type of rash or viral illness at this time. I discussed that he has concern if this becomes itchy could use some topical hydrocortisone cream however he should not need this. Discussed if you develop any lesions at the bottom of his feet oral ulcerations or further rash he may have viral tpso-xspq-lof-mouth which he should watch for otherwise exam is benign today. Mental Status: Alert and oriented x3. Normal mood and affect Assessment/Plan 1. Skin rash (R21: Rash and other nonspecific skin eruption) Please follow up with your primary care provider in 3 to 5 days contact their office tomorrow morning to schedule follow-up appointment you were seen and evaluated in convenient care today in regards to possible rash on your hands. This appears to be a normal variation no raised lesions or blisters. However continue to monitor if you develop any further rash blisters at the soles of the feet palms of the hand or oral ulcerations or lesions he may have viral edzb-lbvd-aal-mouth . At that time that rash will resolve on its own but may take 1 to 2 weeks to resolve. Otherwise just continue to monitor frequent handwashing is important. A prescription for hydrocortisone cream if you notice any raised or bumpy lesions or itching you may use this as needed. Return for any worsening or concerning symptoms. Orders: hydrocortisone topical, 1 larisa, Topical, BID for 5 day(s), 14 gm, Refill(s) 0, [facility], 180, cm, 01/16/23 13:30:00 EDT, Height/Length Dosing, 77.5, kg, 01/16/23 13:30:00 EDT, Weight Dosing Follow-up With When Contact Information TREY LEMA DO [address] [place] [address]- Additional Instructions: Patient Education Rash, Adult Problem List/Past Medical History Ongoing Asthma Generalized abdominal pain Ileitis Nausea and vomiting Smoker Historical Abdominal pain Procedure/Surgical History Colonoscopy (04/21/2022), EGD (esophagogastroduod enoscopy) gastric outlet reduction (04/21/2022), Colonoscopy, EGD - Esophagogastroduode noscopy. Medications budesonide 3 mg oral delayed release capsule, 9 mg= 3 cap(s), Oral, qAM, Not taking dicyclomine 20 mg Tab, 20 mg= 1 tab(s), Oral, QID, PRN, Not taking hydrocortisone Top 0.5% Crm, 1 larisa, Topical, BID meclizine 25 mg oral tablet, chewable, 25 mg= 1 tab(s), Chewed, TID, PRN, Not taking naproxen 500 mg oral enteric coated tablet, 500 mg= 1 tab(s), Oral, BID, PRN, Not taking omeprazol (more content not included)... Normal [facility] Comment on above: Result Comment: Elec tronically Signed By: Reid TAVAREZ, Srikanth Shirley\.br\Date and Time Signed: 01/16/23 14:03 EDT Patient Educationon 01-17-20 Patient Education Infectious Disease Rash, Adult A rash is a change in the color of your skin. A rash can also change the way your skin feels. There are many different conditions and factors that can cause a rash. Some rashes may disappear after a few days, but some may last for a few weeks. Common causes of rashes include: ? Viral infections, such as: ? Colds. ? Measles. ? Hand, foot, and mouth disease. ? Bacterial infections, such as: ? Scarlet fever. ? Impetigo. ? Fungal infections, such as Rachelle. ? Allergic reactions to food, medicines, or skin care products. Follow these instructions at home: The goal of treatment is to stop the itching and keep the rash from spreading. Pay attention to any changes in your symptoms. Follow these instructions to help with your condition: Medicine Take or apply jown-vze-uqjvfce and prescription medicines only as told by your health care provider. These may include: ? Corticosteroid creams to treat red or swollen skin. ? Anti-itch lotions. ? Oral allergy medicines (antihistamines). ? Oral corticosteroids for severe symptoms. Skin care ? Apply cool compresses to the affected areas. ? Do not scratch or rub your skin. ? Avoid covering the rash. Make sure the rash is exposed to air as much as possible. Managing itching and discomfort ? Avoid hot showers or baths, which can make itching worse. A cold shower may help. ? Try taking a bath with: ? Epsom salts. Follow manufacturing technology professor instructions on the packaging. You can get these at your local pharmacy or grocery store. ? Baking soda. Pour a small amount into the bath as told by your health care provider. ? Colloidal oatmeal. Follow manufacturing technology professor instructions on the packaging. You can get this at your local pharmacy or grocery store. ? Try applying baking soda paste to your skin. Stir water into baking soda until it reaches a paste-like consistency. ? Try applying calamine lotion. This is an tieu-qft-fnxmqvu lotion that helps to relieve itchiness. ? Keep cool and out of the sun. Sweating and being hot can make itching worse. General instructions ? Rest as needed. ? Drink enough fluid to keep your urine pale yellow. ? Wear loose-fitting clothing. ? Avoid scented soaps, detergents, and perfumes. Use gentle soaps, detergents, perfumes, and other cosmetic products. ? Avoid any substance that causes your rash. Keep a journal to help track what causes your rash. Write down: ? What you eat. ? What cosmetic products you use. ? What you drink. ? What you wear. This includes jewelry. ? Keep all follow-up visits as told by your health care provider. This is important. Contact a health care provider if: ? You sweat at night. ? You lose weight. ? You urinate more than normal. ? You urinate less than normal, or you notice that your urine is a darker color than usual. ? You feel weak. ? You vomit. ? Your skin or the whites of your eyes look yellow (jaundice). ? Your skin: ? Tingles. ? Is numb. ? Your rash: ? Does not go away after several days. ? Gets worse. ? You are: ? Unusually thirsty. ? More tired than normal. ? You have: ? New symptoms. ? Pain in your abdomen. ? A fever. ? Diarrhea. Get help right away if you: ? Have a fever and your symptoms suddenly get worse. ? Develop confusion. ? Have a severe headache or a stiff neck. ? Have severe joint pains or stiffness. ? Have a seizure. ? Develop a rash that covers all or most of your body. The rash may or may not be painful. ? Develop blisters that: ? Are on top of the rash. ? Grow larger or grow together. ? Are painful. ? Are inside your nose or mouth. ? Develop a rash that: ? Looks like purple pinprick-sized spots all over your body. ? Has a bull's eye or looks like a target. ? Is not related to sun exposure, is red and painful, and causes your skin to peel. Summary ? A rash is a change in the color of your skin. Some rashes disappear after a few days, but some may last for a few weeks. ? The goal of treatment is to stop the itching and keep the rash from spreading. ? Take or apply kfcj-ikn-dwkvzlc and prescription medicines only as told by your health care provider. ? Contact a health care provider if you have new or worsening symptoms. ? Keep all follow-up visits as told by your health care provider. This is important. This information is not intended to replace advice given to you by your health care provider. Make sure you discuss any questions you have with your health care provider. Document Revised: 04/29/2022 Document Reviewed: 04/29/2022 [employer] Patient Education ? 2022 [employer] [facility] Coding Summary.on 11-13-2022 Coding Summary. CD:[id number] bWw+PGhlYWQ+HB6QUAZ eX27bqABocZ1wV4LCIR lOSywgQVBQTElOSyIgb fSyAN2trVOcKALw IC8+UW2sRCXxDpparMN de1C0pPR3W00yie2hGF ijcZU2MKMzVjDhxtosp 0mkrRi3DZazNjpiRqZl WPVtjR24FCO1tN28Za8 7nTWrjKTao7rvkFx4Nq ClUPXlRJQ2bQcyVGcmo 8FdABLnQ57pxUWlk3W8 IGNvbGxhcHNlOyBlbXB 6aQ6fTFwvefxiq6squw jxIvv8wz46pHAdk5F9u SY1J3GzigF8KJKwsOLs UvrodYMBtD5fcvanl2b ncjltTbJyPHEpZWs0WN l0MSIdqPwnMtLaUA82O TE6POXiyvEvO2ZuUUZu tNbrYjU9u9L6Pc2AC3E MLlmeN6DNZGPAMMvilP Q+CE09rk23R6IpImcwW fo4CUSjCBI0oVY7iB7y JBBfIIide2I3yCG2C9C vaeKdah9qu5qrKECfFV heA74lzPUyd7F9FMOqj JY2NTYqxChzEgEohY33 Oyc+UTPkzNpun0FlFkg kx8xjs7hnoSt7LyioOC SadbZczOprOBS0n1JiK r7fEKRzbPK7fCO5wP1l PhFnRtL3MRneA687RsX jqOVbIzsgR06nS5NdcY A+UFEqVqu3HDOsdBzyG A2wB0DpZFPodxdfeCOp qViuOE2xGVBulyplDXH dsK1gGPWjJ5j4EsTsPr Q4NJkkG7XbPIXpnianZ s71oP2pQjDqYoB1PAmc Q4AhzqO2XQMhbNPvNQt iWKK8Z83zj7X9BVOcTH DxDLY8fGW1yG2bmCgqk jogbGVmdDsgdmVydGlj CMduANusP718KABqiVf nPkNvZGluZyBEYXRlOi AgMDQvMTUvMjAyMzwvd GQ+NBWoTXE7aOkhBLXs pBVhJHfeLh1khEdnkOn bOU0vNBMlutvvSAEgvZ 6tXWQgfEAegUfaYX1tB TIdukbnh347RqJiWKY4 GPVjvVAtI6WmfD3wYaC wFGTcWDXcH9MuyLLzSR dsC418DWozHqB4ZKIen eJiD5EtCQVkeJnqVeK6 u7Z9Zs7Vg8EiixakT8H hzIAiUbCwExgoDOy3Q3 RkPjwvdHI+KH04QOCoB F22DSp7IGR5yBreALnh EOIbW3YzqY1oZwVdLEG kZGRkOyc+PHRhYmxlIH dpZHRoPScxMDAlJyBzd GjtJZ5hQq8iTEQgIPEc xAlyaZEwTfSbi8mrSVN yYSkdYU3wuGbgM9NxhB H6RPKps0v0Rh92P26zJ 3JvdXA+TBNeyEY4nLI0 aJ9iAdVsJzF0LEgeC04 3HtQttUMoKmmgq9xhi0 cmvNi6DyE4ADClrfGye ZbaPJK9k3HuAz77A56t IHdpZHRoPSIxNSUiIHZ fdYhgiw4iaJ0gEu3+PG ZxsIU6sWV8fF1sYkCuD sX4ZOdaO045DaSszQRv Iupxh1bmb1mlnKi0AvM fJGNmtwForLnjUGM3f7 SfYf52D9MkhKwfa8WeP wk0zn93mPPbj3T3aTO7 Y3BgHQEebgzelBIfnEt cKG0wHAMnizvmZVRclO 7gGTTdV8i7ZbVyTlV6I SrfE9ZjyhG3LCCsnSHw RHNwuUMPmC1tfmvsx6r iitixNkBdDIJbMOp1NB w8SKJesTkxBhIaDEX3W mD2LEE8rQJsxE5wwVsp qsfgdN7xRbn+LTN9kVT rnWCIJV0pWymkrGL+PH EtIEK1tNbhDXuePUEvm R1rRWViK1t9JbTgFcW5 QKlmO6PgxpP0OMHciAN vWPYusENLcS4tlglwr7 vprgmqTnNdKBJxKRr8D Dz3VEZpbNmpOkLdFOI6 EeL8AVP7aKIulW5fsXj hcecksQ3yWxg+QmlydG cwHIH6TWj2A0RpDql9V SPcqZnuIY5otLHoPJzy Rq9biGkzbTjdOM8oKMU uuffym487SgPyu7dtYS FxvQAaLNhpYXB3D05uy 5N6FUGsIVGpBVO3pFG9 eU1qlShfyxnmiCDqzWp gdmVydGljYWwtYWxpZ2 22HTRdrQrgFxOuPGs3O 5HuFmx2ENYjqIgeQF5a gLOnZJavNg1nrRauuDp kKR3fKBTahsgus580Zp Pxd8bqRKKeaEVbKQtiJ DS2E46dz9R8VZHxMGJq MFN4rDL1gZ4ayYmtmcw gbGVmdDsgdmVydGljYW gzRLecX358ZRLhwJglI pZutUe4J9BrQwi2QKAa iPguOH4buJSdRXriWo9 piWmgcGhxUA4hPYInbi qqv473UnVzs1ebTXFtx XOfLHyxEDN4F23pf4J1 BJMiOGNkSPR4iKS1cX3 hbGlnbjogbGVmdDsgdm ExwHnwFHlvYGckV923N HRvcDsnPlBhdGllbnQg QWneTXq9B1LxQmgfmWO +RD06BDRvZJ50tWSxvQ Zej6iofWe0WcKdXPDrG JT1eWxlVMgur6DgFTIt Y26ptTKsj6B7YMSliBn hrTYvGgMttZA0dX1sGY abawktj1ntiqizCvyto 9exuy33dI62V22yVDsd ZHRoPSIzMCUiIHZhbGl hhb0onW2dZi9+PGNvbC D2wSE3wA2yCNNqHsM4E UjmP551FkVuaWEmMpdx d1udj4muvRo1TzO1MDK jetEheDteTCL1r7XdIi 77F73dTDfqYMAqETKeN DWeYFDloLxbas5tkO6m Ii8+BCWaeHJ3xEJ4fV6 hBhGhRtT1WBekX260Oh WpnPRwOpuwF61zC1Hrs XA+CRHjQxa6UTSnfFls DF9kjSXtCJbeHz1bXLI 9NrOhIoTuFPnfK3AgKY UkbqpgtyzfxXC7LEXgS DIaeU39Nn5olDihKWWy aHDKtO2vwblup8xirtr gRcVnFCWzDTv6CNy9MU RemXhvOgYlAKK1GgC3J HZ6uSBkoV9ylTksmoas xX4eY4MzCRUfpswcTg5 6aR9oIhBpMjJ1FPgqOb c+H5EUUFkMFjgrHv1BC HSTMFO0V8VgWpp3BVGu pMqqGD3hkWMmQZdvVg5 wxPioeVbrQP7sEWVuuk xkTRXejA5iMHDhkFWzs PhjAQ4rDISqwrwwz676 BaWuBXX4WFLvyILrW0K muW7oEoQvPGLeDALgD7 TciULcKTmdZ787PXxtX kF1JLPeytFsC7DfXCFg tCumVxR6h5Y3Er5rBh3 oNz3sBXQsYH02SB56rF Qca6M7vIQ2J3RaJMNjl wloeakjbAL4KMNfUBOq lC13jIFzXCqzVy6uw8Y 9d372RCFqUJIpnQ76Tn 0pjMtgFZUwhYGSdL1ht oefu4nfbbehOdQsZYDz NQx6QXl9KAVhoYkoFfG mADE1RrF0QIO6iEFfxK 4qdDhjycckzV4iHil+M mAbJYGatbJ5X9TmMrw6 JQCvjAjlWK9mjXOcFHc fIh2hmKukkDeoZJ7rFC QmoqmdXOEbtK0hVCGux MTiiUzsQN0eFKYjicsr y231OdVoEAC7PJAdkBD xF4ZshS8vCsZfMWXmMW SxO3CweZGzDAruI717Q YrvTgI2CMRucwXvX5Nc RLPpyVkyFtC3e5U4Tr9 HSMbjQX36IZ07oIThr4 Z8oDB3E2BmFUNcikeby fwsoAS3GEYwROFfmO55 kQLtWQgmIc5il3N9w04 6RVLvULWdfQ10En5ajA gpKEUqySRFyM4rcrqlc 3mayoqyLiFsVCDrCMk7 CEt2JARhdQpyDyYnTZI 0HhV3IVI8qHHiqL8qqS blnsnfkG8tClz+TGFiI JOlz7Qnf5RcRR02ZG10 B1UsJsbwpBVpoJE+PHR hYmxlIHdpZHRoPScxMD JiCuFmpKouZY4hWb3cK GVyLWNvbGxhcHNlOiBj q8sjKZBkADkyZT6ecVk aN7JgeKV0JFDtv5l5Vj 30K20dX6FaeRZ+PGNvb TL9mBM5rC7fXxOzSgW3 YLrhS581WtSqnLIyXhq zt8knm6kjvRr1IaBkHA IufeFtyZirDYG6v3UjT m59Z51xPSchLZShRSKs BBUaODLfeLidht6wwF2 wIi8+TJTieCN4lGH9yN 2nPbXaZsP8VEskK665L sWzaQCfBwlhR41rO8Ys dXA+CJFzYcv0AJLlfOv nMH4leAJqJUuyLe9hMS N8WyMzFuLeYHdrC7EeY MZxapkiluzhlBT0BNRc FNWwtQ40Ql3caQemLd4 hVKOxOUK9WLArbNUcC3 FryT1uGbPxVARmKSJkU 0XvjUIsKWcyT697IUdk OnL7AGVcaeViH0IyOBM zhKmlKpU1u7C0Hd1VpG ziaUGkKH5aGuItJQk6P 8CsMbl9UOLrhXkmXV6b zNNyOLmcEc9ncRcrgHb vVM6vEONccnxiq698Vz Hlz7kfDYYmpTAcQJgtZ UU5D64nt7H4PJMxSMYy KOV3fXH8rX5cgWknpsc gbGVmdDsgdmVydGljYW pdXXchF785VVOtlRnqZ oUVYoq2K2TaJca8KIUn nLmgGR4ayNAiKHjtXn5 egWapzMujGA3bYHXbki ixl163MqNaw8dkJNKdr LAaTCdtNMP6U62dr2C5 QJOhNPUyIPL2jCV9rZ3 hbGlnbjogbGVmdDsgdm MtmTsfKCwgUKyxO968D HNmbEyfNs9SQdr4B3Nj Vla1GEKfnJbwRC3abWP gOWosVw6ewFbdjIayTH 8pTPOgxmgxq894AeApe 2ouOQUslTTpNKpfMBU8 Y51rg5K6LEMaXVMuIUR 7rFK2sM0hzRpblvhvzM VmdDsgdmVydGljYWwtY IsmV591WZAzzDdnSwPm eWVyOjwvdGQ+OR82vy9 0A7ZaCrusQer9YQKoGF L6oLF5iR8uJMOiVEmyj 8S0vUY6R6FfveDghg8y c1nxDLYh (more content not included)... Normal [facility] Calprotectin, Fecalon 2022 Calprotectin (Stl) [Mass/Mass] 58 mcg/gm Invalid Interpretation Code 0-120 [facility] Comment on above: Result Comment: Conc entration Interpretation Follow-Up <16 - 50 ug/g Normal None >50 -120 ug/g Borderline Re-evaluate in 4-6 weeks >120 ug/g Abnormal Repeat as clinically indicated Performed at: [facility] [id number] MD Eagle Sharif Performed By: #### 1 [id number] ####Pe[facility]za [facility] [id number] [place] [address] Gastroenterology Office/Clin ic Noteon 11-11-2022 Gastroenterology Office/Clinic Note Chief Complaint 6 month f/u - stool testing pending HPI Staff Patient is a(n) 21 year old male who presents today for a(n) 6 month follow up. Stool pending. History of Present Illness Corby Law is a 21-year-old white male who presents today for a follow-up. He was last seen in 05/2022 for generalized abdominal pain. He had a CT scan that showed enlarged lymph nodes in the pelvic area and abdomen area. His colonoscopy showed mild inflammation in the terminal ileum without ulceration. Biopsies were normal. He has no family history of Crohn's disease. He was given a course of budesonide. Corby reports that his abdominal pain has resolved. He denies any other GI symptoms. He is no longer taking the budesonide. Review of Systems PHQ Score Initial Depression Screen Score: 0 Constitutional: no fever, no chills, no sweats, no weakness Skin: no Jaundice, no rash, no lesions, no petechiae ENMT: no ear pain, no sore throat, no congestion, no hoarseness Respiratory: no shortness of breath, no cough, no orthopnea, no wheezing Cardiovascular: no chest pain, no palpitations, no edema Gastrointestinal: no nausea, no vomiting, no diarrhea, no constipation, no GI bleeding, no abdominal pain, no dysphagia, no bloating, no heartburn Genitourinary: no dysuria, no hematuria, no discharge, no pain Musculoskeletal: no back pain, no trauma Neurologic: no numbness, no sleeping problems Additional ROS info: Except as noted in the above Review of Systems and in the History of Present Illness all other systems have been reviewed and are negative or noncontributory. Physical Exam Vitals & Measurements HR: 79(Peripheral) RR: 16 BP: 140/86 HT: 71 in HT: 180 cm WT: 124.5 kg WT: 273.9 lb BMI: 38.43 Constitutional: Appearance: well developed Skin: Inspection: no rashes, ulcers, icterus, or telangiectasias. Eyes: Conjunctivae/lids: normal conjunctivae and lids. ENMT: Hearing: within normal limits. Lips/Teeth/Gums: normal oral mucosa Neck: Neck: normal motion, central trachea Respiratory: Percussion: thorax normoresonant. Auscultation: normal breath sounds; no rubs, wheezes, rale or rhonchi. Cardiovascular: Auscultation: normal rhythm, S1 and S2; no rubs, murmurs or gallop. Peripheral: no edema Gastrointestinal/Ab domen: Abdomen: normal consistency and bowel sounds; no tenderness or masses. Liver/Spleen: normal size and consistency, not palpable. Rectal: deferred Musculoskeletal: Gait/station: normal gait Assessment/Plan 1. Ileitis (K52.9: Noninfective gastroenteritis and colitis, unspecified) The patient was diagnosed with ileitis based on CT scan and mild inflammation seen on colonoscopy with terminal ileum intubation. He had a negative biopsy. He has no family history of Crohn's. He was given a course of budesonide. He is asymptomatic at this point. His ileitis is likely acute. There is no evidence of Crohn's seen on biopsy. He has no recurrent symptoms. If symptoms recur, then we will repeat a colonoscopy. 2. Generalized abdominal pain (R10.84: Generalized abdominal pain) This is likely secondary to enteritis. This resolved. There is no need for further evaluation at this point. ATTESTATION: Documentation services were performed after patient or guardian consented to allow Bety Ann to record this visit. NAZ provider relations specialist and provider reviewed before signing. NAZ: Linda Neal. Follow-up No qualifying data available Problem List/Past Medical History Ongoing Asthma Generalized abdominal pain Ileitis Nausea and vomiting Smoker Historical Abdominal pain Procedure/Surgical History Colonoscopy (04/21/2022), EGD (esophagogastroduod enoscopy) gastric outlet reduction (04/21/2022), Colonoscopy, EGD - Esophagogastroduode noscopy. Medications budesonide 3 mg oral delayed release capsule, 9 mg= 3 cap(s), Oral, qAM dicyclomine 20 mg Tab, 20 mg= 1 tab(s), Oral, QID, PRN meclizine 25 mg oral tablet, chewable, 25 mg= 1 tab(s), Chewed, TID, PRN naproxen 500 mg oral enteric coated tablet, 500 mg= 1 tab(s), Oral, BID, PRN omeprazole 40 mg Cap-DR, 40 mg= 1 cap(s), Oral, Daily omeprazole 40 mg Cap-DR, 40 mg= 1 cap(s), Oral, Daily Phenergan 12.5 mg Supp, 12.5 mg= 1 supp, Rectal, q8hr, PRN predniSONE 20 mg Tab, 3, Oral, Daily promethazine 25 mg Tab, 25 mg= 1 tab(s), Oral, TID Promethazine DM oral syrup, 5 mL, Oral, q6hr, PRN Zofran ODT 4 mg Tab, 4 mg= 1 tab(s), Oral, QID, PRN Zofran ODT 4 mg Tab-Dis, 4 mg= 1 tab(s), Oral, q8hr, PRN Allergies Clindagel (Swelling) Ventolin HFA clindamycin (Rash) Social History Alcohol - Denies Alcohol Use, 09/30/2019 Current, 11/24/2020 Current, 05/26/2019 Current, 03/29/2018 Substance Abuse - Denies Substance Abuse, 09/30/2019 Current, 11/24/2020 Current, 05/26/2019 Current, 03/29/2018 Tobacco - Medium Risk, 11/06/2022 Former smoker, quit more than 30 days ago Tobacco Use:. Cigars, 11/10/2022 Never (less than 100 in lifetime) Tobacco Use: (more content not included)... Normal [facility] Comment on above: Result Comment: Elec tronically Signed By: Linda Neal\.br\Date and Time Signed: 11/10/22 11:50 EDT\.br\Electronically Co-Signed By: Bebeto GRANADO MD\.br\Date and Time Co-Signed: 11/11/22 08:28 EDT Ambulatory Visit Summaryon 0 11-10-2022 Ambulatory Visit Summary CORBY LAW :2000 Visit Date:11/10/2022 Ambulatory Visit Instructions Your Diagnosis Ileitis Generalized abdominal pain Your Care Team Attending Physician - LOY MEHTA, Bebeto Primary Care Physician - PITA JOHNSTON, TREY This Is Your Medications List Contact prescribing physician if questions or concerns budesonide (budesonide 3 mg oral delayed release capsule) dextromethorphan-pr omethazine (Promethazine DM oral syrup) dicyclomine (dicyclomine 20 mg Tab) meclizine (meclizine 25 mg oral tablet, chewable) naproxen (naproxen 500 mg oral enteric coated tablet) omeprazole (omeprazole 40 mg Cap-DR) omeprazole (omeprazole 40 mg Cap-DR) ondansetron (Zofran ODT 4 mg Tab) ondansetron (Zofran ODT 4 mg Tab-Dis) predniSONE (predniSONE 20 mg Tab) promethazine (Phenergan 12.5 mg Supp) promethazine (promethazine 25 mg Tab) Procedures Performed Colonoscopy (04/21/2022), EGD (esophagogastroduod enoscopy) gastric outlet reduction (04/21/2022), Colonoscopy, EGD - Esophagogastroduode noscopy. Discharge Vitals Heart Rate (Peripheral) 79 Respiratory Rate 16 Blood Pressure 140/86 Height 180 cm Height 71 in Weight 124.5 kg Weight 273.9 lb BMI 38.43 Medications What How Much When Why Instructions Unchanged budesonide (budesonide 3 mg oral delayed release capsule) 3 Capsules By Mouth Once a day (in the morning) Ileitis Contact prescribing physician if questions or concerns Unchanged dextromethorphan-pr omethazine (Promethazine DM oral syrup) 5 Milliliter By Mouth Every 6 hours as needed for for cough Contact prescribing physician if questions or concerns Unchanged dicyclomine (dicyclomine 20 mg Tab) 1 Tablets By Mouth 4 times a day as needed for Spasm Contact prescribing physician if questions or concerns Unchanged meclizine (meclizine 25 mg oral tablet, chewable) 1 Tablets Chewed 3 times a day as needed for for dizziness Contact prescribing physician if questions or concerns Unchanged naproxen (naproxen 500 mg oral enteric coated tablet) 1 Tablets By Mouth 2 times a day as needed for Pain Contact prescribing physician if questions or concerns Unchanged omeprazole (omeprazole 40 mg Cap-DR) 1 Capsules By Mouth Every day Contact prescribing physician if questions or concerns Unchanged omeprazole (omeprazole 40 mg Cap-DR) 1 Capsules By Mouth Every day Contact prescribing physician if questions or concerns Unchanged ondansetron (Zofran ODT 4 mg Tab) 1 Tablets By Mouth 4 times a day as needed for Nausea/Vomiting Contact prescribing physician if questions or concerns Unchanged ondansetron (Zofran ODT 4 mg Tab-Dis) 1 Tablets By Mouth Every 8 hours as needed for Nausea/Vomiting Contact prescribing physician if questions or concerns Unchanged predniSONE (predniSONE 20 mg Tab) 3 By Mouth Every day Contact prescribing physician if questions or concerns Unchanged promethazine (Phenergan 12.5 mg Supp) 1 Suppositories By rectum Every 8 hours as needed for Nausea Contact prescribing physician if questions or concerns Unchanged promethazine (promethazine 25 mg Tab) 1 Tablets By Mouth 3 times a day Contact prescribing physician if questions or concerns Allergies Clindagel (Swelling) Ventolin HFA clindamycin (Rash) Problems Ongoing - Any problem that you are currently receiving treatment for. Asthma Generalized abdominal pain Ileitis Nausea and vomiting Smoker Historical - Any problem that you are no longer receiving treatment for. Abdominal pain Normal [facility] Coding Summary.on 11-09-2022 Coding Summary. CD:[id number] bWw+PGhlYWQ+YP0MZUR sO67kfMXvqP6jN8YENF lOSywgQVBQTElOSyIgb oMmWW1mvYZvJGMh IC8+NN6xLPEmWyjkiNI uz1H4cIE8R69uvq5uPC craBU5GTMhRwIlagyox 1srdAl1PYfcLjbrGjPm BBZgtN15CTF3uD54Wz8 1dNUxeNYbn1djlPn9Ax MvWTTiGJC5rTtmPEqtr 3GiSYOdK42mzUDjc6L6 IGNvbGxhcHNlOyBlbXB 3xG8kCJvasvlwp8fssw zkLje6hv78cDIzs0H6i AD0H8EnalA6ZJBcsUWf FodojQWQbM4zeoqri6z lkrzpJmMfVMFnSWc5CU z7LLZxlUstToKkCY18S WC0HSLxpfTmV3CmPQDw eHzuWkC1h9C7Md7ZK5F RIfqlG4KBNUWVPDkckC Q+RB41nm96V0UkEjveK ul1ATYlUHS3dMV0sH9n RJHmJNulq2Q7aJC6Z4K vpfVmag7nz3jcWMYpZD skU13nhHNom8L7MWSwv UF3JVLxuBcbHmGcuV02 Oyc+LZMkrPiwl5CrAcw hk4psl8zuyOj0RwywRV NcqbNddZcxCHR5b8IjV s0iOHDgxRZ8mAR9gL8n LyGyKtH7HXkzL539QrZ qxIJkMidbC58cP9AmeC A+AZQmWwl2SKVyjKlvC F6wC9WePHCuluxceSFy oRilIS7xOQSleejxUZC exW8kYEZlI2e1WbPpEv X9BLdrP3VoTMJxnxzlD q71yR5cFxRhOcE1WTpf T3PseiY1YPRvpRToMFk mRPW1V57qe3F0XXLbDC SzFWR2sAT7cL0zkWrsd jogbGVmdDsgdmVydGlj XFsiGIklV360JWCdlBy nPkNvZGluZyBEYXRlOi AgMDQvMTEvMjAyMzwvd GQ+HOVzBVH2jZvpXAZi sZJlJAqlRb0xdQqlaEz dDD3fEBKtrtytGATyhF 6gJCWsbUMksCivDP4qZ ARfmicah145LzZrQYU5 SPAfdOGtO0ZjuK9lYtW vFKYuFKRmQ1JtxSZlUL vtL693ECdaPmX9POVyx zNtY9OnWYJwoKxlIvN3 x2Y6Ww0Rk4TcuuwrR3A tkSLnIlCtBgodHSx2D3 RkPjwvdHI+LX48OZKcF G40QOm7GJY8tDlmUTbz BITmQ6PouH0yJkQgJGO kZGRkOyc+PHRhYmxlIH dpZHRoPScxMDAlJyBzd KynLE6pRp3mLLBkUBQi rVsmxPFxJsVxr4lbMSJ zLIlyID5waWvcS7RqoD P4BCJro1s2Id24E34lH 3JvdXA+ROVltPE9mHM3 aE2sEfSnLhW4UDyrP81 2IyCzqNUzOkakz6brl4 jazYl5VgQ7HHVcbzAri GlwIYE6o1SuEh54X40z IHdpZHRoPSIxNSUiIHZ ksKvzng8drK1rCu6+PG FczMY7rJK8tK2zJqOwQ nG9SDcmB608CzQfmMUq Cbdop0bzo6huwIt2RtM oCGSilxTlxDffNNT6c0 HzFv22V0HtoRwbe8TsJ lm5ol31oQZju0U5iNT6 I3BnLDBqvmaurWMkdMu iQF5iZXTkvhvjZOFthY 7fFVRiX5d8GvGiKbW6S IttI1OrjrK8SEZtsNDe QPLpbYBIbG6mxlyim9p vbeetEjUqSIRhKJf7AX c4MXPfyEnzTqCwWAE5U vM4AQP0fPJblK3fyAmf ppqsxE0mDwv+EFE8hEE lyLWBPH3vIojjcGH+PH TcWFH8rQtnLDwoEZMmm L8eJYWnU2y1QcJzKzS5 ZKipW2YnmzY4OMJkkEA fFFPxhCCJqF3dcnzbz7 rkkqoiMsLrEVAkMAv0F Ji5CDBdeLyhUgGjFHR8 QoO5MKR8mIZecX7uaYx jkylygT0lNwj+QmlydG dnPXV8MEo5O2ChRyt7X GTtoYzdWC9tnDByXEca Hg0jvCcaeTmrNC9oTYN agybpf130UmSgl4ptDL LjtWHpSVibPPF0R47fj 9C4PWEyNHUyKDE3lTM1 mK0lbYiqeaebeNCuuJs gdmVydGljYWwtYWxpZ2 67LEOvnSsgZvKdUIh4C 3GrXbc9ZNIguUldNS1t yMCzDXmuBi2gtOhcmKm bNA2uPRSptpzvw425Pw Dji2enEJVmbEUaUXguM AV0V48ut2P4AHNpHELf JTL9uRU4hB4efHaswkv gbGVmdDsgdmVydGljYW kvQFifK476YIBdpUwbC vYarYk6T5RnHnj7HYBl qGcgDW6ooZWgFCgxKz0 yoLmjhBedYA7pZQNgqq njt978UxYtt2uzZWVbx THiKSzfAYI9Q04bl9W9 VGSxGNSwQBP2uVO6jZ7 hbGlnbjogbGVmdDsgdm KhbOhwQSduPOlsH652Q HRvcDsnPlBhdGllbnQg DMmkSSd4R1PgPmvryEU +OS80VLVzBU02oKNpqI Zpx7ywvPb4KgVtWHAyV OT8kTmeZYwmb8YzYLFh W49otDXuq1S0SYJcmEw zuWYyKkAdhMC6bE9aCR tlbhhqm8pxuysaNmjng 7pksh84aA38V03qALen ZHRoPSIzMCUiIHZhbGl fre7jwK3kAo6+PGNvbC P3eME9oR4oNPDnRlH2J GuxL302LvTjaTEnSjvu v8bsq1ehxOr2TdO1PXO thcDhnSteOSJ7m2OgUo 62V41wFTdvNCQmKVPgD JHiTOUcwTxygw5tlO1e Ii8+PVEbsUZ3rBY6oX6 kUzEjQaP2EKfzF456Kg PvkQRiAlsjF31oZ2Umx XA+XYYsWqf7MQLagPuy RN3pkUIzAUcrXw8vPPE 7OlYhIdPfGEnsZ2InZG CwlsfyldtgwHH1QFWzW WCbzO60Ld4oxSmaRXPs cSNBeN3vvlnju6elrtc xYjVaTJDsOVj0QVb8RQ GgpLseUoPlRKU4ZfA4Q TI9kBCdvR4mtUzdvhrf yA5fH6UwTVQggxrqZm6 9eT8cKdYoAzL9UUogGi c+J6JRFQfGDwlvMg7CU FQPVAN3W9GgJwt0OHLh eDovXX7shFKaTBznYy2 ctHswkKvzHI9vILMvpd gsDYLyaV6kYHOouQLve TvfRI7rCPOqskhil627 OcMiAIK7OAVavXIrV2Z awK7hDoJeZPZnAQCdS8 KmdJHvSWaeT114HRatG qR2YOZfagNoX0FpCPYj bPctHqI2y6M0Xq1fFo7 qUn9dFXLaDF15ED44eD Rud4A1wRB6D0ZnXRJvm ptvlpterOX5JCLsZIMp jB39uBJuFSeiPv7jt1G 1g041FENfUBLtaM92Cd 6lqMulEAPrdPHWxF0nx zdqh8jzbxrgMwLeODXc DGk6CHu0AVMkxTnhMxA aBRP6SyG4TGP7vELfhY 4rrGsgnacgnW2lSrg+M sKjTNLiqfE1P1QgFop0 TFNppYimZO7goSEkNFq lXd2wwUshcAccWK1nFL DriufhORHunQ3oDLBmz AHnmOdjIS9vKPRthztf x102HcDwPPN1JGEvkEV tW6MljF4gHxRtBQEkUE JqB8SpwYAoQAzkP063V HqwYcV1XNClnsZjE2Jm HUTyqYvmQdD3u8H2Hr0 SJOkqSW18CL33xBWpw1 W1zSQ5P0VjFYEyicacl bdrcZU4AUUlWWTfbD51 zBKiXAwmKi4xv7J7u07 6WKZhSKShtX20Kc1lzR zkSJJbbEINtR6cpivue 7pmoekcRvPuSXIiSIk7 TAo5IFRhiMzaPpStALU 3MsF1EYP2cTJwyP0cnQ tzxzuzmO3fBpm+RW1lc ciherM5QG81OH49M8Qj PjwvdGFibGU+PHRhYmx lIHdpZHRoPScxMDAlJy ZalNqaIS3nEb8qYBQfM UAqwGqnuEVzVwXtq8xx SKWpLBnjZI2aqFjzD1U qlQN5ESZop8d3Xd47E6 6wL6OwhTA+GNEjxFS4s GS3uQ4vHtByTxW9RXwe F355NoBzvBQtExuvc7d wl7myjNn0CrSzEHAjxf KevMosRJO6b2KvMv18W 29sIHdpZHRoPSIyMCUi UPKnrLaxjb2ljJ0wDh2 +CUMgaMK0vVO2iX1uDt ZsElM9IBtlR758IzYtp ECzNfejX02gR6IgcPB+ AKSvZse8IGHifNxhJF1 dgUIzCGqvRg8yNEW7Vo BlCfKqUKowB8WoLREym tuoharmaGR7KFOvWDTk vZ10Rg5zrFabZv8yWVT kDHR8ELRhwZBfK3CurS 5dZeKxPGMjMPWlI0Fqx WSmGVetZ794LYskAfY8 ICMmvhKbA7OmEDAyaTu jIrC5g0Z8Oc5ZeQwqlU BqWL6cEzZcRVp5I6JuK bw2CHNxgGfrOW8fvEJy TZebPv4ymCafwNjqRZ7 oOWCdqdohx123GdFdh8 xnZJJpaKPgMRqdYPC7D 50xt6J0NHIvAGTjSUL2 dNN1rG7fhNivvumxvHK mdDsgdmVydGljYWwtYW tiV348BNHxvUquEqUVW dy4O0YfVcj8AXStgJhk KJ0siSGvEFxeQx2hoDn ksNxsKV3eRAOhaoljk2 17GhClv7joTLAwjGEvR HwsKQH8A74ky5X5DSIc ZPEzKMQ1fXR8lU4iaOe nbjogbGVmdDsgdmVydG trYVfvTAsyV282GDGwl SyuRz1OKjx6D6XlZny3 HRRoyHkkMO7yvUOvMBb oIh4flEoutIadUQ8uMI Ymwinie064MgVkm4jsK CHyiQRhFLyoLCC1L05p r5A0JNTcAHGqAYI0kUE 6nK6hmJbiriugbAWyfG sgdmVydGljYWwtYWxpZ 246IHRvcDsnPlBheWVy OjwvdGQ+UF71hj92D2A rPepzDhk0UWHmQHT9bW T8sF1qFKPrJYsdm8X4o RE2Q9KryvLhpv4nd6vk YXBzZTog (more content not included)... Normal [facility] Consent for Treatmenton Consent for Treatment [id number] [email or web address] Normal [facility] Discharge Instructionson Discharge Instructions [id number] Normal [facility] ED Clinical Summaryon 2022 ED Clinical Summary [address] [address] ED Clinical Summary [facility] Age[facility] 21 Years : 2000 Sex: Male Language: Thai PCP: TREY LEMA DO Marital Status: Single MRN: Visit Id: Visit Reason: Leg abrasion, minor; LEFT LEG LACERATION Speciality: Acuity: 4 Enc Type: Emergency Med Service: Emergency Arrival: 11/06/2022 12:55:04 Discharge: 11/06/2022 13:47:42 LOS: 000 00:52 Checkin: 11/06/2022 12:55:04 Checkout: 11/06/2022 13:47:42 Dispo Type: Home (Routine DC) EVENTS: Event Name Event Status Request Date/Time Start Date/Time Complete Date/Time Arrive Complete 11/06/2022 12:55:04 11/06/2022 12:55:04 11/06/2022 12:55:04 Document Home Meds Request 11/06/2022 12:55:04 Triage Complete 11/06/2022 12:55:04 11/06/2022 13:02:39 11/06/2022 13:02:39 Bed Assign Complete 11/06/2022 12:57:44 11/06/2022 12:57:44 11/06/2022 12:57:44 Dr Exam Complete 11/06/2022 12:57:44 11/06/2022 12:59:29 11/06/2022 12:59:29 RN Exam Complete 11/06/2022 12:57:44 11/06/2022 13:25:16 11/06/2022 13:25:16 Registration Complete 11/06/2022 12:59:29 11/06/2022 13:01:12 11/06/2022 13:01:12 Reg Complete Request 11/06/2022 13:01:12 Dr Exam Complete 11/06/2022 13:01:22 11/06/2022 13:01:22 11/06/2022 13:01:22 Registration Request 11/06/2022 13:01:22 Meds Admin Complete 11/06/2022 13:19:24 11/06/2022 13:27:30 Discharge Complete 11/06/2022 13:42:15 11/06/2022 13:47:48 11/06/2022 13:47:48 Transfer Complete 11/06/2022 13:47:48 11/06/2022 13:47:48 11/06/2022 13:47:48 ADDRESS: [address] [place] [address] [phone] PHYS DOC NOTES: MEDICAL INFORMATION: Prescriptions Given: Medications to Continue with No Changes Other Medications budesonide (budesonide 3 mg oral delayed release capsule) 3 Capsules By Mouth once a day (in the morning). Refills: 0. dextromethorphan-pr omethazine (Promethazine DM oral syrup) 5 Milliliter By Mouth every 6 hours as needed for cough. Refills: 0. dicyclomine (dicyclomine 20 mg Tab) 1 Tablets By Mouth 4 times a day as needed Spasm. meclizine (meclizine 25 mg oral tablet, chewable) 1 Tablets Chewed 3 times a day as needed for dizziness. Refills: 0. naproxen (naproxen 500 mg oral enteric coated tablet) 1 Tablets By Mouth 2 times a day as needed Pain. Refills: 0. omeprazole (omeprazole 40 mg Cap-DR) 1 Capsules By Mouth every day. omeprazole (omeprazole 40 mg Cap-DR) 1 Capsules By Mouth every day. Refills: 0. ondansetron (Zofran ODT 4 mg Tab) 1 Tablets By Mouth 4 times a day as needed Nausea/Vomiting. Refills: 0. ondansetron (Zofran ODT 4 mg Tab-Dis) 1 Tablets By Mouth every 8 hours as needed Nausea/Vomiting. Refills: 0. predniSONE (predniSONE 20 mg Tab) 3 By Mouth every day. Refills: 0. promethazine (Phenergan 12.5 mg Supp) 1 Suppositories By rectum every 8 hours as needed Nausea. Refills: 0. promethazine (promethazine 25 mg Tab) 1 Tablets By Mouth 3 times a day. Refills: 0. PATIENT EDUCATION INFORMATION: Instructions: Abrasion Follow up: With: Address: When: TREY LEMA [address] [facility] [place] [address] [facility] (1) In 3 days DIAGNOSIS: 1:Abrasion of right lower extremity Normal [facility] ED Note-Physicianon 11-07-19 ED Note-Physician Basic Information Time Seen: Yenni Ochoa PA-C 11/06/2022 12:59 Chief Complaint patient cut RRL on on bayron part of truck. unknown last tetnus shot History of Present Illness 21-year-old male presents to the ED complaining of a cut to his right lower extremity. Patient states that he was loading things into a truck when he accidentally cut his leg on a bayron part of the truck. Patient cleaned the wound at home. Came to the ED because he is not sure when his last tetanus shot was. Denies any other pain or injuries. Patient is otherwise healthy. Not immunocompromise or diabetic. Review of Systems All organ systems are reviewed. Pertinent positive and negative findings as mentioned in the HPI. Physical Exam Vitals & Measurements T: 36.8 ?C(Oral) HR: 82(Peripheral) RR: 18 BP: 168/96 SpO2: 98% HT: 180 cm WT: 124 kg BMI: 38.27 GENERAL APPEARANCE: Well developed, well nourished, alert and cooperative, and appears to be in no acute distress. HEAD: normocephalic, atraumatic EYES: PERRL, EOMI. Vision is grossly intact. EARS: External auditory canals clear, hearing grossly intact. NOSE: No nasal discharge. THROAT: Oral cavity and pharynx normal. Oral mucosa moist. MUSCULOSKELETAL: Adequately aligned spine. ROM intact spine and extremities. No joint erythema or tenderness. Superficial linear abrasion noted to the gong of the right lower extremity. No active bleeding, no suturable laceration. No surrounding evidence of infection NEUROLOGICAL: CN grossly intact. Strength and sensation symmetric and intact throughout. SKIN: Skin normal color, texture and turgor with no lesions or eruptions. Assessment/Plan 1. Abrasion of right lower extremity (S80.811A: Abrasion, right lower leg, initial encounter) Orders: tetanus/diphtheria/ pertussis, acel (Tdap), 0.5 mL, Injection, Intramuscular-Immun ization, Once, Stop date 11/06/22 13:19:00 EDT, STAT, Start date 11/06/22 13:19:00 EDT 21-year-old male presents to the ED with an abrasion to his right lower extremity. In the ED patient is afebrile vital signs are stable, no acute distress. Patient is a very superficial linear abrasion of the right gong. No suturable laceration. Patient requesting wound care and a tetanus shot. Wound was cleaned and irrigated at bedside and patient received tetanus shot in the ED. Discharged home with education supportive care and is to follow with his PCP. He is to return to the ED with any new or worsening symptoms. Patient voices understanding and is agreeable to plan. Medications Administered Given tetanus/diphtheria/ pertussis, acel (Tdap) 5 units-2.5 units-18.5 mcg/0.5 mL intramuscular suspension, 0.5 mL, Intramuscular-Immun ization diphtheria/pertussi s, acel/tetanus adult, Intramuscular-Immun ization Disposition Plan Patient Discharge Condition Improved, stable Discharge Disposition To home Discharge Prescription List Prescriptions No active prescription medications Follow-up With When Contact Information TREY LEMA In 3 days [address] [id number] Business (1) Additional Instructions: Patient Education Abrasion Attestation Patient was treated and evaluated by the Physician Pals Nurse. The attending physician was in the Emergency Department at all times and supervised care. The case was discussed with the attending physician and diagnostics were reviewed as needed. Problem List/Past Medical History Ongoing Asthma Generalized abdominal pain Ileitis Nausea and vomiting Smoker Historical Abdominal pain Procedure/Surgical History Colonoscopy (04/21/2022), EGD (esophagogastroduod enoscopy) gastric outlet reduction (04/21/2022), Colonoscopy, EGD - Esophagogastroduode noscopy. Medications Inpatient No active inpatient medications Home budesonide 3 mg oral delayed release capsule, 9 mg= 3 cap(s), Oral, qAM dicyclomine 20 mg Tab, 20 mg= 1 tab(s), Oral, QID, PRN meclizine 25 mg oral tablet, chewable, 25 mg= 1 tab(s), Chewed, TID, PRN, Not taking naproxen 500 mg oral enteric coated tablet, 500 mg= 1 tab(s), Oral, BID, PRN, Not taking omeprazole 40 mg Cap-DR, 40 mg= 1 cap(s), Oral, Daily omeprazole 40 mg Cap-DR, 40 mg= 1 cap(s), Oral, Daily Phenergan 12.5 mg Supp, 12.5 mg= 1 supp, Rectal, q8hr, PRN, Not taking predniSONE 20 mg Tab, 3, Oral, Daily, Not taking promethazine 25 mg Tab, 25 mg= 1 tab(s), Oral, TID, Not taking Promethazine DM oral syrup, 5 mL, Oral, q6hr, PRN, Not taking Zofran ODT 4 mg Tab, 4 mg= 1 tab(s), Oral, QID, PRN, Not taking Zofran ODT 4 mg Tab-Dis, 4 mg= 1 tab(s), Oral, q8hr, PRN, Not taking Allergies Clindagel (Swelling) Ventolin HFA clindamycin (Rash) Social History Alcohol - Denies Alcohol Use, 09/30/2019 Current, 11/24/2020 Current, 05/26/2019 Current, 03/29/2018 Substance Abuse - Denies Substance Abuse, 09/30/2019 Current, 11/24/2020 Current, 05/26/2019 Current, 03/29/2018 Tobacco - Medium Risk, 11/06/2022 4 or less cigarettes(l (more content not included)... Normal [facility] Comment on above: Result Comment: Elec tronically Signed By: Yenni Ochoa PA-C\.br\Date and Time Signed: 11/06/22 13:42 EDT\.br\Electronically Co-Signed By: Asmita Linares M.D.\.br\Date and Time Co-Signed: 11/06/22 15:36 EDT ED Patient Education Noteon 11-06-2022 ED Patient Education Note Dermatology Abrasion An abrasion is a cut or a scrape on the outer surface of the skin. An abrasion does not go through all the layers of the skin. It is important to care for your abrasion properly to prevent infection. What are the causes? This condition is caused by falling on or gliding across the ground or another surface. When your skin rubs on something, the outer and inner layers of skin may rub off. What are the signs or symptoms? The main symptom of this condition is a cut or a scrape. The scrape may be bleeding, or it may appear red or pink. If the abrasion was caused by a fall, there may be a bruise under the cut or scrape. How is this diagnosed? An abrasion is diagnosed with a physical exam. How is this treated? Treatment for this condition depends on how large and deep the abrasion is. In most cases: ? Your abrasion will be cleaned with water and mild soap. This is done to remove any dirt or debris (such as particles of glass or rock) that may be stuck in the wound. ? An antibiotic ointment may be applied to the abrasion to help prevent infection. ? A bandage (dressing) may be placed on the abrasion to keep it clean. You may also need a tetanus shot. Follow these instructions at home: Medicines ? Take or apply [id number]-[id number] and prescription medicines only as told by your health care provider. ? If you were prescribed an antibiotic medicine, apply it as told by your health care provider. Wound care ? Clean the wound 2?3 times a day, or as directed by your health care provider. To do this, wash the wound with mild soap and water, rinse off the soap, and pat the wound dry with a clean towel. Do not rub the wound. ? Keep the dressing clean and dry as told by your health care provider. ? There are many different ways to close and cover a wound. Follow instructions from your health care provider about: ? Caring for your wound. ? Changing and removing your dressing. You may have to change your dressing one or more times a day, or as directed by your health care provider. ? Check your wound every day for signs of infection. Check for: ? Redness, particularly a red streak that spreads out from the wound. ? Swelling or increased pain. ? Warmth. ? Fluid, pus, or a bad smell. ? If directed, put ice on the injured area to reduce pain and swelling: ? Put ice in a plastic bag. ? Place a towel between your skin and the bag. ? Leave the ice on for 20 minutes, 2?3 times a day. General instructions ? Do not take baths, swim, or use a hot tub until your health care provider says it is okay to do so. ? If possible, raise (elevate) the injured area above the level of your heart while you are sitting or lying down. This will reduce pain and swelling. ? Keep all follow-up visits as directed by your health care provider. This is important. Contact a health care provider if: ? You received a tetanus shot, and you have swelling, severe pain, redness, or bleeding at the injection site. ? Your pain is not controlled with medicine. ? You have redness, swelling, or more pain at the site of your wound. Get help right away if: ? You have a red streak spreading away from your wound. ? You have a fever. ? You have fluid, blood, or pus coming from your wound. ? You notice a bad smell coming from your wound or your dressing. Summary ? An abrasion is a cut or a scrape on the outer surface of the skin. An abrasion does not go through all the layers of the skin. ? Care for your abrasion properly to prevent infection. ? Clean the wound with mild soap and water 2?3 times a day. Follow instructions from your health care provider about taking medicines and changing your bandage (dressing). ? Contact your health care provider if you have redness, swelling or more pain in the wound area. ? Get help right away if you have a fever or if you have fluid, blood, pus, a bad smell, or a red streak coming from the wound. This information is not intended to replace advice given to you by your health care provider. Make sure you discuss any questions you have with your health care provider. Document Released: 04/27/2006 Document Revised: 06/30/2018 Document Reviewed: 03/01/2018 Elsevier Patient Education ? 2019 [employer] Normal [facility] ED Patient Summaryon 023 ED Patient Summary [place] [id number] Patient Discharge Instructions Person Information Name: CORBY LAW Age: 21 Years Arrival Date: 11/06/2022 12:55:04 Discharge Diagnosis: 1:Abrasion of right lower extremity Primary Care Physician: TREY LEMA DO Provider Information Primary Provider: Vijay Carlson, Asmita Ozuna Advanced Executive Officer:Yenni Ochoa PA-C The exam and treatment you received in the Emergency Department were for an urgent problem and are not intended as complete care. It is important that you follow up with a doctor, nurse practitioner, or physician?s contact center assistant for ongoing care. If your symptoms become worse or you do not improve as expected and you are unable to reach your usual health care provider, you should return to the Emergency Department. We are available 24 hours a day. CORBY LAW has been given the following list of patient education materials, prescriptions and follow-up instructions: Follow-up Instructions: With: Address: When: TREY LEMA [facility] [place] [address] Business (1) In 3 days In the event that this physician does not participate in your insurance network, please consult with your insurance company to find a nearby participating provider. Patient Education Materials: Abrasion A MESSAGE TO ALL PATIENTS REGARDING OPIOIDS PRESCRIPTION OPIOIDS: WHAT YOU NEED TO KNOW Prescription opioids can be used to help relieve ywhhwmag-[id number]-[id number] pain and are often prescribed following a surgery or injury, or for certain health conditions. These medications can be an important part of the treatment but also come with serious risks. It is important to work with your healthcare provider to make sure you are getting the safest, most effective care. WHAT ARE THE RISKS AND SIDE EFFECTS OF OPIOID USE? Prescription opioids carry serious risks of addiction and overdose, especially with prolonged use. An opioid overdose, often marked by slowed breathing, can cause sudden . The use of prescription opioids can have a number of side effects as well, even when taken as directed: ? Tolerance?meaning you might need to take more of the medication for the same pain relief ? Physical dependence?meaning you have symptoms of withdrawal when a medication is stopped ? Increased sensitivity to pain ? Constipation ? Nausea, vomiting, and dry mouth ? Sleepiness and dizziness ? Confusion ? Depression ? Low levels of testosterone that can result in lower sex drive, energy, and strength ? Itching and sweating RISKS ARE GREATER WITH: ? History of drug misuse, substance use disorder, or overdose ? Mental health conditions (such as depression or anxiety) ? Sleep apnea ? Older age (65 years and older) ? Avoid alcohol while taking prescription opioids. Also, unless specifically advised by your health care provider, medications to avoid include: ? Benzodiazepines (such as Xanax or Valium) ? Muscle relaxants (such as Soma or Flexeril) ? Hypnotics (such as Ambien or Lunesta) ? Other prescription opioids KNOW YOUR OPTIONS Talk to your health care provider about ways to manage your pain that don?t involve prescription opioids. Some of these options may actually work better and have fewer risks and side effects. Options may include: ? Pain relievers such as acetaminophen, ibuprofen, and naproxen ? Some medication that are also used for depression or seizures ? Physical therapy and exercise ? Cognitive behavioral therapy, a psychological, goal-directed approach, in which patients learn how to modify physical, behavioral, and emotional triggers of pain and stress. IF YOU ARE PRESCRIBED OPIOIDS FOR PAIN: ? Never take opioids in greater amounts or more often than prescribed. ? Follow up with your primary health care provider. o Work together to create a plan on how to manage your pain. o Talk about ways to help manage your pain that don?t involve prescription opioids. o Talk about any and all concerns and side effects. ? Help prevent misuse and abuse o Never sell or share prescription opioids. o Never use another person?s prescription opioids. ? Store prescription opioids in a secure place and out of reach of others (this may include visitors, children, friends, and family). ? Safely dispose of unused prescription opioids: Find your community drug take-back program or your pharmacy mail-back program, or flush them down the toilet, following guidance from the Food and Drug Administration (www.fda.gov/Drugs/ ResourcesForYou). ? Visit www.cdc.gov/drugove rdose to learn about the risks of opioids abuse and overdose. ? If you believe you may be struggling with addiction, tell your health point of care specialist and ask for guidance or call [facility]S National Helpline at 7-622-942-HELP. v Source: [place] Depa (more content not included)... Normal [facility] Vaccinationson 11-06-2022 Vaccinations [id number] Normal [facility] Gastroenterology Office/Clin ic Noteon 05-14-2022 Gastroenterology Office/Clinic Note Chief Complaint f/u EGD/colon HPI Staff This is a 21 year old male who presents today for a follow up to EGD and Colonoscopy. History of Present Illness Corby is a 21-year-old white male who was initially seen on 04/12/2022 by my nurse practitioner for generalized abdominal pain, nausea, and vomiting. He described it as 3 weeks of pain. He had a CT scan in 03/2022 that showed mild prominent mesenteric lymph nodes and slightly enlarged lymph nodes, potentially related to mononucleosis, which he was diagnosed with in 04/2022. We proceeded with an EGD and colonoscopy. His EGD showed normal esophagus, stomach, and duodenum. We biopsied his stomach and came back negative for any bacteria. His duodenal biopsies were negative for signs of celiac disease. His colonoscopy also showed normal colonic mucosa, but there was slight inflammation in the last part of the small intestines, spanning for almost 2 cm. The biopsy from that area came back normal. I do not have any conclusive evidence of Crohn's disease. The patient reports that his pain has improved for some parts, but he still has pain when he eats. He states that he ate at approximately 11 AM and he is still experiencing pain. He feels that his symptoms are improving, but is not resolved. He does not feel that he needs to go to the emergency room right now when he eats. He has been taking Bentyl once a day and Tylenol if his stomach does hurt. He has been getting headaches and jaw pain, but he thinks it is due to having a middle ear infection. He has diarrhea and constipation. Review of Systems PHQ Score Initial Depression Screen Score: 0 Constitutional: no fever, no chills, no sweats, no weakness Skin: no Jaundice, no rash, no lesions, no petechiae ENMT: no ear pain, no sore throat, no congestion, no hoarseness Respiratory: no shortness of breath, no cough, no orthopnea, no wheezing Cardiovascular: no chest pain, no palpitations, no edema Gastrointestinal: no nausea, no vomiting, no diarrhea, no constipation, no GI bleeding, no dysphagia, no bloating, no heartburn. Positive abdominal pain, change in bowel habits. Genitourinary: no dysuria, no hematuria, no discharge, no pain Musculoskeletal: no back pain, no trauma Neurologic: no numbness, no sleeping problems Additional ROS info: Except as noted in the above Review of Systems and in the History of Present Illness all other systems have been reviewed and are negative or noncontributory. Physical Exam Vitals & Measurements HR: 80(Peripheral) RR: 16 BP: 137/92 HT: 71 in HT: 180 cm WT: 124 kg WT: 272.8 lb BMI: 38.27 Constitutional: Appearance: well developed Skin: Inspection: no rashes, ulcers, icterus, or telangiectasias. Eyes: Conjunctivae/lids: normal conjunctivae and lids. ENMT: Hearing: within normal limits. Lips/Teeth/Gums: normal oral mucosa Neck: Neck: normal motion, central trachea Respiratory: Percussion: thorax normoresonant. Auscultation: normal breath sounds; no rubs, wheezes, rale or ronchi. Cardiovascular: Auscultation: normal rhythm, S1 and S2; no rubs, murmurs or gallop. Peripheral: no edema Gastrointestinal/Ab domen: Abdomen: normal consistency and bowel sounds; no tenderness or masses. Liver/Spleen: normal size and consistency, not palpable. Rectal: deferred Musculoskeletal: Gait/station: normal gait Assessment/Plan 1. Ileitis (K52.9: Noninfective gastroenteritis and colitis, unspecified) The patient had a CT scan that showed enlarged lymph nodes. He had a recent small gliosis. His colonoscopy showed mild inflammation in the terminal ileum without ulcerations. His biopsies were normal. He has no family history of Crohn's disease. At this point, his ileitis is possibly related to his recent viral gastroenteritis. His symptoms improved, but not resolved. I will give him a course of budesonide and we will reassess again in 3 to 6 months. 2. Generalized abdominal pain (R10.84: Generalized abdominal pain) This is likely related to recent mononucleosis and gastroenteritis. This is improving gradually. He had a normal EGD and colonoscopy except for mild ileitis. He will continue with Bentyl and we will start budesonide. 3. Nausea and vomiting (R11.2: Nausea with vomiting, unspecified) The patient had a normal EGD. He had a negative gastric and duodenal biopsies. He will continue with omeprazole as needed. He will follow up with me in 3 to 6 months. Documentation services were performed by NAZ after patient consented to recording for virtual documentation coordinator and provider reviewed before signing. NAZ: Alize Kelley. Follow-up No qualifying data available Problem List/Past Medical History Ongoing Asthma Generalized abdominal pain Ileitis Nausea and vomiting Historical Abdominal pain Procedure/Surgical History Colonoscopy (04/21/2022), EGD (esophagogastroduod enoscopy) gastric outlet reduction (04/21/2022), Colonoscopy, EGD - Esophagogastroduode noscopy. Medications budesonide 3 mg oral delayed (more content not included)... Normal [facility] Comment on above: Result Comment: Elec tronically Signed By: Bebeto GRANADO MD\.br\Date and Time Signed: 05/14/22 08:23 EDT\.br\Electronically Co-Signed By: Stephanie Sanders\.br\Date and Time Co-Signed: 05/13/22 18:06 EDT Ambulatory Visit Summaryon 1 Ambulatory Visit Summary CORBY LAW :2000 Visit Date:05/13/2022 Ambulatory Visit Instructions Your Diagnosis Ileitis Generalized abdominal pain Nausea and vomiting Your Care Team Attending Physician - Bebeto GRANADO MD Primary Care Physician - PITA JOHNSTON, TREY This Is Your Medications List budesonide (budesonide 3 mg oral delayed release capsule) Contact prescribing physician if questions or concerns dextromethorphan-pr omethazine (Promethazine DM oral syrup) dicyclomine (dicyclomine 20 mg Tab) dicyclomine (dicyclomine 20 mg Tab) meclizine (meclizine 25 mg oral tablet, chewable) naproxen (naproxen 500 mg oral enteric coated tablet) omeprazole (omeprazole 40 mg Cap-DR) omeprazole (omeprazole 40 mg Cap-DR) ondansetron (Zofran ODT 4 mg Tab) ondansetron (Zofran ODT 4 mg Tab-Dis) predniSONE (predniSONE 20 mg Tab) promethazine (Phenergan 12.5 mg Supp) promethazine (promethazine 25 mg Tab) Procedures Performed Colonoscopy (04/21/2022), EGD (esophagogastroduod enoscopy) gastric outlet reduction (04/21/2022), Colonoscopy, EGD - Esophagogastroduode noscopy. Discharge Vitals Heart Rate (Peripheral) 80 Respiratory Rate 16 Blood Pressure 137/92 Height 71 in Height 180 cm Weight 272.8 lb Weight 124 kg BMI 38.27 What to do next Scheduled Follow-Up Appointments Tuesday 9:00 AM EDT With: Bebeto GRANADO MD Where: [facility] Normal Generalized abdominal pain, Print Label By Order Location\.br\ Medications\.br\ What How Much When Why Instructions\.br \ New budesonide (budesonide 3 mg oral delayed release capsule) 3 Capsules By Mouth Once a day (in the morning) Ileitis Pickup at [facility] 1985\.br\ Unchanged dextromethorphan -promethazine (Promethazine DM oral syrup) 5 Milliliter By Mouth Every 6 hours as needed for for cough Contact prescribing physician if questions or concerns \.br\ Unchanged dicyclomine (dicyclomine 20 mg Tab) 1 Tablets By Mouth 4 times a day as needed for Spasm Contact prescribing physician if questions or concerns \.br\ Unchanged dicyclomine (dicyclomine 20 mg Tab) 1 Tablets By Mouth 4 times a day Duration: 14 Days Contact prescribing physician if questions or concerns \.br\ Unchanged meclizine (meclizine 25 mg oral tablet, chewable) 1 Tablets Chewed 3 times a day as needed for for dizziness Contact prescribing physician if questions or concerns \.br\ Unchanged naproxen (naproxen 500 mg oral enteric coated tablet) 1 Tablets By Mouth 2 times a day as needed for Pain Contact prescribing physician if questions or concerns \.br\ Unchanged omeprazole (omeprazole 40 mg Cap-DR) 1 Capsules By Mouth Every day Contact prescribing physician if questions or concerns \.br\ Unchanged omeprazole (omeprazole 40 mg Cap-DR) 1 Capsules By Mouth Every day Contact prescribing physician if questions or concerns \.br\ Unchanged ondansetron (Zofran ODT 4 mg Tab) 1 Tablets By Mouth 4 times a day as needed for Nausea/Vomiting Contact prescribing physician if questions or concerns \.br\ Unchanged ondansetron (Zofran ODT 4 mg Tab-Dis) 1 Tablets By Mouth Every 8 hours as needed for Nausea/Vomiting Contact prescribing physician if questions or concerns \.br\ Unchanged predniSONE (predniSONE 20 mg Tab) 3 By Mouth Every day Contact prescribing physician if questions or concerns \.br\ Unchanged promethazine (Phenergan 12.5 mg Supp) 1 Suppositories By rectum Every 8 hours as needed for Nausea Contact prescribing physician if questions or concerns \.br\ Unchanged promethazine (promethazine 25 mg Tab) 1 Tablets By Mouth 3 times a day Contact prescribing physician if questions or concerns \.br\ Pharmacy Information\.br\ [facility]: [address] [place], [place] [id number] [phone]\.br\ Medications and Immunizations Administered\.br \ Not Given\.br\ influenza virus vaccine, inactivated, Patient Refuses\.br\ Allergies\.br\ Clindagel (Swelling)\.br\ Ventolin HFA\.br\ clindamycin (Rash)\.br\ Problems\.br\ Ongoing - Any problem that you are currently receiving treatment for.\.br\ Asthma\.br\ Generalized abdominal pain\.br\ Ileitis\.br\ Nausea and vomiting\.br\ Historical - Any problem that you are no longer receiving treatment for.\.br\ Abdominal pain\.br\ \.br\ [facility] Ambulatory Visit Summary CORBY LAW :2000 Visit Date:05/13/2022 Ambulatory Visit Instructions Your Diagnosis Ileitis Generalized abdominal pain Nausea and vomiting Your Care Team Attending Physician - Bebeto GRANADO MD Primary Care Physician - TREY LEMA DO This Is Your Medications List budesonide (budesonide 3 mg oral delayed release capsule) Contact prescribing physician if questions or concerns dextromethorphan-pr omethazine (Promethazine DM oral syrup) dicyclomine (dicyclomine 20 mg Tab) dicyclomine (dicyclomine 20 mg Tab) meclizine (meclizine 25 mg oral tablet, chewable) naproxen (naproxen 500 mg oral enteric coated tablet) omeprazole (omeprazole 40 mg Cap-DR) omeprazole (omeprazole 40 mg Cap-DR) ondansetron (Zofran ODT 4 mg Tab) ondansetron (Zofran ODT 4 mg Tab-Dis) predniSONE (predniSONE 20 mg Tab) promethazine (Phenergan 12.5 mg Supp) promethazine (promethazine 25 mg Tab) Procedures Performed Colonoscopy (04/21/2022), EGD (esophagogastroduod enoscopy) gastric outlet reduction (04/21/2022), Colonoscopy, EGD - Esophagogastroduode noscopy. Discharge Vitals Heart Rate (Peripheral) 80 Respiratory Rate 16 Blood Pressure 137/92 Height 71 in Height 180 cm Weight 272.8 lb Weight 124 kg BMI 38.27 What to do next You Need to Complete the Following Calprotectin, Fecal, Stool, Routine collect, 05/13/22, Order for future visit, Nurse collect, Ileitis Normal [facility] CHEMISTRYOrdered By: SYSTEM SYSTEM on 05-04-2022 Anion gap [Moles/Vol] 14 mmol/L Normal 6 - 16 mEq/L [facility] Remisol Calcium [Mass/Vol] 9.1 mg/dL Normal 8.9 - 11.1 mg/dL [facility] Rem[facility] Chloride [Moles/Vol] 104 mmol/L Normal 101 - 111 mmol/ L [facility] CO2 [Moles/Vol] 24 mmol/L Normal 21 - 31 mmol/L [facility] Creatinine [Mass/Vol] 1.0 mg/dL Normal 0.5 - 1.3 mg/d L [facility] Remisol GFR/1.73 sq M.predicted among blacks MDRD (S/P/Bld) [Vol rate/Area] mL/min/1.73 m2 Normal >=59mL/min/1.73 m2 [facility] S GFR/1.73 sq M.predicted among non-blacks MDRD (S/P/Bld) [Vol rate/Area] mL/min/1.73 m2 Normal >=59mL/min/1.73 m2 [facility] Chem S Glucose [Mass/Vol] 100 mg/dL Normal 55 - 199 mg/dL [facility] Remisol Magnesium [Mass/Vol] 1.8 mg/dL Normal 1.3 - 2.4 mg/dL [facility] Potassium [Moles/Vol] 3.7 mmol/L Normal 3.5 - 5.3 mmol /L [facility] Sodium [Moles/Vol] 138 mmol/L Normal 135 - 145 mmol/L [facility] Troponin I.cardiac [Mass/Vol] pg/mL Low 15.90 - 38.40 pg/mL [facility] TSH Qn 2.69 m[IU]/L Normal 0.34 - 5.60 mcIU/mL [facility] Urea nitrogen [Mass/Vol] 14 mg/dL Normal 5 - 21 mg/dL [facility] Urea nitrogen/Creatinine [Mass ratio] 14 mg/mg Normal 10 - 20 [facility] CHEMISTRYOrdered By: Bandar henry on 05-04-2022 Natriuretic peptide B (Bld) [Mass/Vol] 5 pg/mL Normal 5 - 80 pg/mL [facility] COAGULATIONOrdered By: Bandar Forte on 05-04-2022 aPTT Coag (PPP) [Time] 33.3 s Normal 25.1 - 36.5 second(s) [facility] Auto Coag Fibrin D-dimer FEU (PPP) [Mass/Vol] 388 ng/mL FEU Normal 215 - 500 ng/mL FEU [facility] Coag INR Coag (PPP) [Relative time] 1.1 {INR} Invalid Interpretation Code [facility] Auto Coag PT Coag (PPP) [Time] 12.6 s High 9.4 - 1 2.5 second(s) [facility] Auto Coag HEMATOLOGYOrdered By: SYSTEM SYSTEM on 05-04-2022 Basophils/100 WBC (Bld) 1.4 % Normal 0.0 - 2.0 % [facility] Basophils/Leukocytes Auto (Bld) [Pure # fraction] 0.2 E9/L Normal 0.0 - 0.2 E9/L [facility] Eosinophils/100 WBC (Bld) 0.9 % Normal 0.0 - 8.0 % [facility] Eosinophils/Leukocyte s Auto (Bld) [Pure # fraction] 0.1 E9/L Normal 0.0 - 0.5 E9/L [facility] Lymphocytes/100 WBC (Bld) 20.7 % Normal 14.0 - 50.0 % [facility] Lymphocytes/Leukocyte s Auto (Bld) [Pure # fraction] 2.4 E9/L Normal 1.0 - 4.0 E9/L [facility] Monocytes/100 WBC (Bld) 7.8 % Normal 4.0 - 14.0 % [facility] Monocytes/Leukocytes Auto (Bld) [Pure # fraction] 0.9 E9/L Normal 0.2 - 1.0 E9/L [facility] Neutrophils/100 WBC (Bld) 69.2 % Normal 36.0 - 75.0 % [facility] Neutrophils/Leukocyte s Auto (Bld) [Pure # fraction] 8.1 E9/L High 2.0 - 7.5 E9/L [facility] HEMATOLOGYOrdered By: Bandar Forte on 05-04-2022 Erythrocyte distribution width (RBC) [Ratio] 12.9 % Normal 10.9 - 14.2 % [facility] Hematocrit (Bld) [Volume fraction] 51.1 % High 37.7 - 49.0 % [facility] Hemoglobin (Bld) [Mass/Vol] 17.3 g/dL Normal 13.5 - 17.5 gm/dL [facility] MCH (RBC) [Entitic mass] 29.5 pg Normal 27.0 - 34.0 pg [facility] MCHC (RBC) [Mass/Vol] 33.9 g/dL Normal 31.4 - 36.0 gm/dL [facility] MCV (RBC) [Entitic vol] 87.1 fL Normal 80.0 - 100.0 fL [facility] Platelet mean volume (Bld) [Entitic vol] 8.8 fL Normal 6.4 - 10.8 fL [facility] Platelets (Bld) [#/Vol] 271.0 E9/L Normal 150.0 - 500.0 E9/L [facility] RBC (Bld) [#/Vol] 5.9 E12/L Normal 4.3 - 5.9 E12/L [facility] WBC corrected for nucl RBC Auto (Bld) [#/Vol] 11.7 E9/L High 4.0 - 11.0 E9/L [facility] CHEMISTRYOrdered By: SYSTEM SYSTEM on 04-07-2022 Anion gap [Moles/Vol] 12 mmol/L Normal 6 - 16 mEq/L [facility] Calcium [Mass/Vol] 9.1 mg/dL Normal 8.9 - 11.1 mg/dL [facility] Remisol Chloride [Moles/Vol] 102 mmol/L Normal 101 - 111 mmol/ L [facility] Rem[facility] CO2 [Moles/Vol] 23 mmol/L Normal 21 - 31 mmol/L [facility] Creatinine [Mass/Vol] 0.8 mg/dL Normal 0.5 - 1.3 mg/d L [facility] Remisol GFR/1.73 sq M.predicted among blacks MDRD (S/P/Bld) [Vol rate/Area] mL/min/1.73 m2 Normal >=59mL/min/1.73 m2 [facility] Chem S GFR/1.73 sq M.predicted among non-blacks MDRD (S/P/Bld) [Vol rate/Area] mL/min/1.73 m2 Normal >=59mL/min/1.73 m2 [facility] Chem S Glucose [Mass/Vol] 94 mg/dL Normal 55 - 199 mg/dL [facility] Remisol Potassium [Moles/Vol] 4.3 mmol/L Normal 3.5 - 5.3 mmol /L [facility] Sodium [Moles/Vol] 133 mmol/L Low 135 - 145 mmol/L [facility] Urea nitrogen [Mass/Vol] 11 mg/dL Normal 5 - 21 mg/dL [facility] Urea nitrogen/Creatinine [Mass ratio] 14 mg/mg Normal 10 - 20 [facility] Rem[facility] HEMATOLOGYOrdered By: SYSTEM SYSTEM on 04-07-2022 Basophils/100 WBC (Bld) 0.5 % Normal 0.0 - 2.0 % [facility] Basophils/Leukocytes Auto (Bld) [Pure # fraction] 0.1 E9/L Normal 0.0 - 0.2 E9/L [facility] Eosinophils/100 WBC (Bld) 1.9 % Normal 0.0 - 8.0 % [facility] Eosinophils/Leukocyte s Auto (Bld) [Pure # fraction] 0.2 E9/L Normal 0.0 - 0.5 E9/L [facility] Lymphocytes/100 WBC (Bld) 19.1 % Normal 14.0 - 50.0 % [facility] Lymphocytes/Leukocyte s Auto (Bld) [Pure # fraction] 2.4 E9/L Normal 1.0 - 4.0 E9/L [facility] Monocytes/100 WBC (Bld) 6.2 % Normal 4.0 - 14.0 % [facility] Monocytes/Leukocytes Auto (Bld) [Pure # fraction] 0.8 E9/L Normal 0.2 - 1.0 E9/L [facility] Neutrophils/100 WBC (Bld) 72.3 % Normal 36.0 - 75.0 % [facility] Neutrophils/Leukocyte s Auto (Bld) [Pure # fraction] 9.3 E9/L High 2.0 - 7.5 E9/L [facility] HEMATOLOGYOrdered By: Alliso n Domitila on 04-07-2022 Erythrocyte distribution width (RBC) [Ratio] 13.1 % Normal 10.9 - 14.2 % [facility] Hematocrit (Bld) [Volume fraction] 52.7 % High 37.7 - 49.0 % [facility] Hemoglobin (Bld) [Mass/Vol] 17.9 g/dL High 13.5 - 17.5 gm/dL [facility] MCH (RBC) [Entitic mass] 30.0 pg Normal 27.0 - 34.0 pg [facility] MCHC (RBC) [Mass/Vol] 34.0 g/dL Normal 31.4 - 36.0 gm/dL [facility] MCV (RBC) [Entitic vol] 88.3 fL Normal 80.0 - 100.0 fL [facility] Platelet mean volume (Bld) [Entitic vol] 9.1 fL Normal 6.4 - 10.8 fL [facility] Platelets (Bld) [#/Vol] 271.0 E9/L Normal 150.0 - 500.0 E9/L [facility] RBC (Bld) [#/Vol] 6.0 E12/L High 4.3 - 5.9 E12/L [facility] WBC corrected for nucl RBC Auto (Bld) [#/Vol] 12.8 E9/L High 4.0 - 11.0 E9/L [facility] SEROLOGYOrdered By: Devon For ster on 04-07-2022 Heterophile Ab LA Ql (S) Positive *ABN* (04/07/22 7:58 PM) Invalid Interpretation Code Negative [facility] CHEMISTRYOrdered By: SYSTEM SYSTEM on 03-29-2022 Albumin [Mass/Vol] 4.4 g/dL Normal 3.3 - 5.0 gm/dL [facility] Albumin/Globulin [Mass ratio] 1.3 {ratio} Normal 1.1 - 2.2 [facility] ALP [Catalytic activity/Vol] 89 [iU]/d Normal 21 - 98 Int._Unit/L [facility] ALT No additional P-5'-P [Catalytic activity/Vol] 51 [iU]/d High 6 - 46 Int._Unit/L [facility] Anion gap [Moles/Vol] 11 mmol/L Normal 6 - 16 mEq/L [facility] Remisol AST [Catalytic activity/Vol] 28 [iU]/d Normal 5 - 43 Int._Unit/L [facility] Bilirubin [Mass/Vol] 1.1 mg/dL Normal 0.0 - 1.1 mg/dL [facility] Bilirubin.direct [Mass/Vol] 0.3 mg/dL Normal 0.1 - 0.4 mg/dL [facility] Bilirubin.indirect [Mass or moles/Vol] 0.8 mg/dL Normal 0.1 - 0.9 mg/dL [facility] Calcium [Mass/Vol] 9.2 mg/dL Normal 8.9 - 11.1 mg/dL [facility] Chloride [Moles/Vol] 104 mmol/L Normal 101 - 111 mmol/ L [facility] CO2 [Moles/Vol] 26 mmol/L Normal 21 - 31 mmol/L [facility] Creatinine [Mass/Vol] 0.8 mg/dL Normal 0.5 - 1.3 mg/d L [facility] GFR/1.73 sq M.predicted among blacks MDRD (S/P/Bld) [Vol rate/Area] mL/min/1.73 m2 Normal >=59mL/min/1.73 m2 [facility] Chem S GFR/1.73 sq M.predicted among non-blacks MDRD (S/P/Bld) [Vol rate/Area] mL/min/1.73 m2 Normal >=59mL/min/1.73 m2 [facility] Chem S Globulin (S) [Mass/Vol] 3.3 g/dL Normal 1.4 - 4.0 gm/dL [facility] Glucose [Mass/Vol] 103 mg/dL Normal 55 - 199 mg/dL [facility] Lipase [Catalytic activity/Vol] 23 U/L Normal 13 - 58 unit/L [facility] Potassium [Moles/Vol] 3.7 mmol/L Normal 3.5 - 5.3 mmol /L [facility] Protein [Mass/Vol] 7.7 g/dL Normal 6.0 - 7.8 gm/dL [facility]isol Sodium [Moles/Vol] 137 mmol/L Normal 135 - 145 mmol/L [facility] Urea nitrogen [Mass/Vol] 9 mg/dL Normal 5 - 21 mg/dL [facility] Urea nitrogen/Creatinine [Mass ratio] 11 mg/mg Normal 10 - 20 [facility] HEMATOLOGYOrdered By: SYSTEM SYSTEM on 03-29-2022 Basophils/100 WBC (Bld) 0.7 % Normal 0.0 - 2.0 % [facility] Basophils/Leukocytes Auto (Bld) [Pure # fraction] 0.1 E9/L Normal 0.0 - 0.2 E9/L [facility] Eosinophils/100 WBC (Bld) 1.9 % Normal 0.0 - 8.0 % [facility] Eosinophils/Leukocyte s Auto (Bld) [Pure # fraction] 0.2 E9/L Normal 0.0 - 0.5 E9/L [facility] Lymphocytes/100 WBC (Bld) 23.9 % Normal 14.0 - 50.0 % [facility] Lymphocytes/Leukocyte s Auto (Bld) [Pure # fraction] 2.7 E9/L Normal 1.0 - 4.0 E9/L [facility] Monocytes/100 WBC (Bld) 8.3 % Normal 4.0 - 14.0 % [facility] Monocytes/Leukocytes Auto (Bld) [Pure # fraction] 0.9 E9/L Normal 0.2 - 1.0 E9/L [facility] Neutrophils/100 WBC (Bld) 65.2 % Normal 36.0 - 75.0 % [facility] Neutrophils/Leukocyte s Auto (Bld) [Pure # fraction] 7.4 E9/L Normal 2.0 - 7.5 E9/L [facility] HEMATOLOGYOrdered By: Bandar Forte on 03-29-2022 Erythrocyte distribution width (RBC) [Ratio] 13.1 % Normal 10.9 - 14.2 % [facility] Hematocrit (Bld) [Volume fraction] 52.2 % High 37.7 - 49.0 % [facility] Hemoglobin (Bld) [Mass/Vol] 17.5 g/dL Normal 13.5 - 17.5 gm/dL [facility] MCH (RBC) [Entitic mass] 29.6 pg Normal 27.0 - 34.0 pg [facility] MCHC (RBC) [Mass/Vol] 33.5 g/dL Normal 31.4 - 36.0 gm/dL [facility] MCV (RBC) [Entitic vol] 88.2 fL Normal 80.0 - 100.0 fL [facility] Platelet mean volume (Bld) [Entitic vol] 9.0 fL Normal 6.4 - 10.8 fL [facility] Platelets (Bld) [#/Vol] 270.0 E9/L Normal 150.0 - 500.0 E9/L [facility] RBC (Bld) [#/Vol] 5.9 E12/L Normal 4.3 - 5.9 E12/L [facility] WBC corrected for nucl RBC Auto (Bld) [#/Vol] 11.4 E9/L High 4.0 - 11.0 E9/L [facility] URINALYSISOrdered By: Bandar Forte on 03-29-2022 Bilirubin Ql (U) Negative (03/29/22 2:54 AM) Normal Negative [facility] UA Auto SS Clarity (U) Clear (03/29/22 2:54 AM) Normal Clear [facility]A Auto SS Color (U) Yellow (03/29/22 2:54 AM) Normal Yellow [facility]A Auto SS Epithelial cells.squamous LM.HPF (Urine sed) [#/Area] 0-2 /HPF Normal 0-2/HPF [facility] UA Aut o SS Glucose Test strip (U) [Mass/Vol] Negative (03/29/22 2:54 AM) Normal Negative [facility]A Auto SS Hemoglobin Ql (U) Negative (03/29/22 2:54 AM) Normal Negative [facility]A Auto SS Ketones (U) [Mass/Vol] Negative (03/29/22 2:54 AM) Normal Negative [facility]A Auto SS Volo.plasma/Lithiu m.RBC (Bld) [Mass ratio] 0-3 /HPF Normal 0-3/HPF [facility]A Auto SS Nitrite Ql (U) Negative (03/29/22 2:54 AM) Normal Negative [facility] UA Auto SS pH (U) 6.0 *NA* (03/29/22 2:54 AM) Invalid Interpretation Code 5.0 - 9.0 [facility] UA Auto SS Protein (U) [Mass/Vol] Negative (03/29/22 2:54 AM) Normal Negative [facility] UA Auto SS Specific gravity (U) [Rel density] 1.025 *NA* (03/29/22 2:54 AM) Invalid Interpretation Code 1.005 - 1.030 [facility] UA Auto SS UA Spec Desc Clean Catch (03/29/22 2:54 AM) Normal [facility] UA Auto SS Urobilinogen Qn (U) [id number] {Trish'U}/dL Normal 0.0 - 1.0 EU/dL [facility] UA Auto SS WBC Auto Ql (U) Negative (03/29/22 2:54 AM) Normal Negative [facility] UA Auto SS WBC LM.HPF (Urine sed) [#/Area] 0-5 /HPF Normal 0-5/HPF [facility] UA Auto SS CHEMISTRYOrdered By: SYSTEM SYSTEM on 03-21-2022 Anion gap [Moles/Vol] 11 mmol/L Normal 6 - 16 mEq/L [facility] Remisol Calcium [Mass/Vol] 9.3 mg/dL Normal 8.9 - 11.1 mg/dL [facility] Chloride [Moles/Vol] 101 mmol/L Normal 101 - 111 mmol/ L [facility] CO2 [Moles/Vol] 29 mmol/L Normal 21 - 31 mmol/L [facility] Creatinine [Mass/Vol] 0.9 mg/dL Normal 0.5 - 1.3 mg/d L [facility] GFR/1.73 sq M.predicted among blacks MDRD (S/P/Bld) [Vol rate/Area] mL/min/1.73 m2 Normal >=59mL/min/1.73 m2 [facility] Chem S GFR/1.73 sq M.predicted among non-blacks MDRD (S/P/Bld) [Vol rate/Area] mL/min/1.73 m2 Normal >=59mL/min/1.73 m2 [facility] Chem S Glucose [Mass/Vol] 108 mg/dL Normal 55 - 199 mg/dL [facility] Rem[facility] Potassium [Moles/Vol] 4.3 mmol/L Normal 3.5 - 5.3 mmol /L [facility] Sodium [Moles/Vol] 137 mmol/L Normal 135 - 145 mmol/L [facility] Troponin I.cardiac [Mass/Vol] 2.40 pg/mL Low 15.90 - 38.40 pg/mL [facility] Urea nitrogen [Mass/Vol] 12 mg/dL Normal 5 - 21 mg/dL [facility] Urea nitrogen/Creatinine [Mass ratio] 13 mg/mg Normal 10 - 20 [facility] HEMATOLOGYOrdered By: SYSTEM SYSTEM on 03-21-2022 Basophils/100 WBC (Bld) 0.7 % Normal 0.0 - 2.0 % [facility] Basophils/Leukocytes Auto (Bld) [Pure # fraction] 0.1 E9/L Normal 0.0 - 0.2 E9/L [facility] Eosinophils/100 WBC (Bld) 2.7 % Normal 0.0 - 8.0 % [facility] Eosinophils/Leukocyte s Auto (Bld) [Pure # fraction] 0.3 E9/L Normal 0.0 - 0.5 E9/L [facility] Lymphocytes/100 WBC (Bld) 27.5 % Normal 14.0 - 50.0 % [facility] Lymphocytes/Leukocyte s Auto (Bld) [Pure # fraction] 2.9 E9/L Normal 1.0 - 4.0 E9/L [facility] Monocytes/100 WBC (Bld) 8.9 % Normal 4.0 - 14.0 % [facility] Monocytes/Leukocytes Auto (Bld) [Pure # fraction] 0.9 E9/L Normal 0.2 - 1.0 E9/L [facility] Neutrophils/100 WBC (Bld) 60.2 % Normal 36.0 - 75.0 % [facility] Neutrophils/Leukocyte s Auto (Bld) [Pure # fraction] 6.2 E9/L Normal 2.0 - 7.5 E9/L [facility] HEMATOLOGYOrdered By: Bandar Forte on 03-21-2022 Erythrocyte distribution width (RBC) [Ratio] 13.0 % Normal 10.9 - 14.2 % [facility] Hematocrit (Bld) [Volume fraction] 49.4 % High 37.7 - 49.0 % [facility] Hemoglobin (Bld) [Mass/Vol] 16.8 g/dL Normal 13.5 - 17.5 gm/dL [facility] MCH (RBC) [Entitic mass] 30.0 pg Normal 27.0 - 34.0 pg [facility] MCHC (RBC) [Mass/Vol] 34.0 g/dL Normal 31.4 - 36.0 gm/dL [facility] MCV (RBC) [Entitic vol] 88.0 fL Normal 80.0 - 100.0 fL [facility] Platelet mean volume (Bld) [Entitic vol] 8.9 fL Normal 6.4 - 10.8 fL [facility] Platelets (Bld) [#/Vol] 253.0 E9/L Normal 150.0 - 500.0 E9/L [facility] RBC (Bld) [#/Vol] 5.6 E12/L Normal 4.3 - 5.9 E12/L [facility] Heme[facility] WBC corrected for nucl RBC Auto (Bld) [#/Vol] 10.4 E9/L Normal 4.0 - 11.0 E9/L [facility] Vital Signs Date Time Vital Sign Value Performing Clinician Facility 03-29-2023 03:00-0400 Diastolic blood pressure 81 mm[Hg] [facility] [place] 03-29-2023 03:00-0400 Respiratory rate 18 /min [facility] [place] 03-29-2023 03:00-0400 SaO2% (BldA) [Mass fraction] 98 % [facility] [place] 03-29-2023 03:00-0400 Systolic blood pressure 126 mm[Hg] [facility] Gaby [facility] 03-29-2023 02:08-0400 Body temperature 97.7 [degF] [facility] [place] 03-29-2023 02:08-0400 Diastolic blood pressure 101 mm[Hg] Jeremy Gaby [facility] 03-29-2023 02:08-0400 Heart rate 80 /min Jeremy Gaby [facility] 03-29-2023 02:08-0400 Respiratory rate 16 /min Jeremy Gaby [facility] 03-29-2023 02:08-0400 SaO2% (BldA) [Mass fraction] 99 % Jeremy Gaby [facility] 03-29-2023 02:08-0400 Systolic blood pressure 152 mm[Hg] Jeremy Gaby [facility] 01-16-2023 13:27-0400 Blood Pressure Location Srikanth Reid [facility] 01-16-2023 13:27-0400 Diastolic blood pressure 80 mm[Hg] Srikanth Reid [facility] 01-16-2023 13:27-0400 Heart rate 75 /min Srikanth Reid [facility] 01-16-2023 13:27-0400 SaO2% (BldA) [Mass fraction] 98 % Srikanth Reid [facility] 01-16-2023 13:27-0400 Systolic blood pressure 112 mm[Hg] Srikanth Reid [facility] 11-10-2022 09:24-0400 Diastolic blood pressure 86 mm[Hg] Tate SALAM [facility] 11-10-2022 09:24-0400 Heart rate 79 /min Tate SALAM [facility] 11-10-2022 09:24-0400 Respiratory rate 16 /min Tate SALAM [facility] 11-10-2022 09:24-0400 Systolic blood pressure 140 mm[Hg] Tate SALAM [facility] 05-13-2022 13:52-0400 Diastolic blood pressure 92 mm[Hg] Tate SALAM [facility] 05-13-2022 13:52-0400 Mean blood pressure 107 mm[Hg] Tate SALAM [facility] 05-13-2022 13:52-0400 Systolic blood pressure 137 mm[Hg] Tate SALAM [facility] 05-13-2022 13:51-0400 Blood Pressure Location Tate SALAM [facility] 05-13-2022 13:51-0400 Diastolic blood pressure 97 mm[Hg] Tate SALAM [facility] 05-13-2022 13:51-0400 Heart rate 80 /min Tate SALAM [facility] 05-13-2022 13:51-0400 Respiratory rate 16 /min Tate SALAM [facility] 05-13-2022 13:51-0400 Systolic blood pressure 136 mm[Hg] Tate SALAM [facility] 05-04-2022 02:49-0400 Diastolic blood pressure 90 mm[Hg] [facility] 05-04-2022 02:49-0400 Heart rate 96 /min [facility] 05-04-2022 02:49-0400 Mean blood pressure 103 mm[Hg] [facility] 05-04-2022 02:49-0400 Respiratory rate 18 /min [facility] 05-04-2022 02:49-0400 SaO2% (BldA) [Mass fraction] 95 % [facility] 05-04-2022 02:49-0400 Systolic blood pressure 129 mm[Hg] [facility] 05-04-2022 02:19-0400 Diastolic blood pressure 93 mm[Hg] [facility] 05-04-2022 02:19-0400 Heart rate 84 /min [facility] 05-04-2022 02:19-0400 Mean blood pressure 107 mm[Hg] [facility] 05-04-2022 02:19-0400 Respiratory rate 16 /min [facility] 05-04-2022 02:19-0400 SaO2% (BldA) [Mass fraction] 96 % [facility] 05-04-2022 02:19-0400 Systolic blood pressure 135 mm[Hg] [facility] 05-04-2022 02:09-0400 Hourly Rounding [facility] 05-04-2022 02:09-0400 Promise to Return [facility] 05-04-2022 01:48-0400 Diastolic blood pressure 91 mm[Hg] [facility] 05-04-2022 01:48-0400 Heart rate 91 /min [facility] 05-04-2022 01:48-0400 Mean blood pressure 106 mm[Hg] [facility] 05-04-2022 01:48-0400 Respiratory rate 18 /min [facility] 05-04-2022 01:48-0400 SaO2% (BldA) [Mass fraction] 96 % [facility] 05-04-2022 01:48-0400 Systolic blood pressure 136 mm[Hg] [facility] 05-04-2022 00:06-0400 Body temperature 98.24 [degF] [facility] 05-04-2022 00:06-0400 Heart rate 112 /min [facility] 04-21-2022 15:15-0400 Blood Pressure Location Tate SALAM [facility] [place] 04-21-2022 15:15-0400 Diastolic blood pressure 76 mm[Hg] [facility] [place] 04-21-2022 15:15-0400 Heart rate 84 /min [facility] [place] 04-21-2022 15:15-0400 Respiratory rate 15 /min [facility] [place] 04-21-2022 15:15-0400 SaO2% (BldA) [Mass fraction] 98 % [facility] [place] 04-21-2022 15:15-0400 Systolic blood pressure 126 mm[Hg] [facility] [place] 04-21-2022 15:05-0400 Blood Pressure Location [facility] [place] 04-21-2022 15:05-0400 Diastolic blood pressure 70 mm[Hg] [facility] [place] 04-21-2022 15:05-0400 Heart rate 78 /min [facility] [place] 04-21-2022 15:05-0400 Respiratory rate 12 /min [facility] [place] 04-21-2022 15:05-0400 SaO2% (BldA) [Mass fraction] 98 % [facility] [place] 04-21-2022 15:05-0400 Systolic blood pressure 111 mm[Hg] [facility] [place] 04-21-2022 15:00-0400 Diastolic blood pressure 68 mm[Hg] [facility] [place] 04-21-2022 15:00-0400 Heart rate 91 /min [facility] [place] 04-21-2022 15:00-0400 Respiratory rate 14 /min [facility] [place] 04-21-2022 15:00-0400 SaO2% (BldA) [Mass fraction] 96 % [facility] [place] 04-21-2022 15:00-0400 Systolic blood pressure 110 mm[Hg] [facility] [place] 04-21-2022 14:49-0400 Body temperature 97.34 [degF] [facility] [facility] [place] 04-21-2022 14:45-0400 Respiratory rate 22 /min Tate SALAM [facility] [place] 04-21-2022 14:40-0400 Respiratory rate 27 /min Tate SALAM [facility] [place] 04-21-2022 14:35-0400 Respiratory rate 20 /min Tate SALAM [facility] [place] 04-21-2022 13:57-0400 Body temperature 97.52 [degF] Tate SALAM [facility] [place] 04-12-2022 09:30-0400 Blood Pressure Location Precious Meli [facility] 04-12-2022 09:30-0400 Body temperature 97.34 [degF] Precious Garrison [facility] 04-12-2022 09:30-0400 Diastolic blood pressure 85 mm[Hg] Precious Garrison [facility] 04-12-2022 09:30-0400 Heart rate 82 /min Precious Garrison [facility] 04-12-2022 09:30-0400 Systolic blood pressure 123 mm[Hg] Precious Garrison [facility] 04-07-2022 21:31-0400 Heart rate 78 /min [facility] 04-07-2022 21:31-0400 Respiratory rate 17 /min [facility] 04-07-2022 21:31-0400 SaO2% (BldA) [Mass fraction] 95 % [facility] 04-07-2022 19:44-0400 Diastolic blood pressure 91 mm[Hg] [facility] 04-07-2022 19:44-0400 Heart rate 80 /min [facility] 04-07-2022 19:44-0400 Mean blood pressure 108 mm[Hg] [facility] 04-07-2022 19:44-0400 Respiratory rate 16 /min [facility] 04-07-2022 19:44-0400 SaO2% (BldA) [Mass fraction] 97 % [facility] 04-07-2022 19:44-0400 Systolic blood pressure 143 mm[Hg] [facility] 04-07-2022 17:04-0400 Body temperature 98.42 [degF] [facility] 04-07-2022 17:04-0400 Diastolic blood pressure 91 mm[Hg] [facility] 04-07-2022 17:04-0400 Heart rate 98 /min [facility] 04-07-2022 17:04-0400 Respiratory rate 18 /min [facility] 04-07-2022 17:04-0400 SaO2% (BldA) [Mass fraction] 100 % [facility] 04-07-2022 17:04-0400 Systolic blood pressure 131 mm[Hg] [facility] 03-29-2022 04:45-0400 Body temperature 98.24 [degF] Jeremy Gaby [facility] [place] 03-29-2022 04:45-0400 Diastolic blood pressure 60 mm[Hg] Jeremy Gaby [facility] [place] 03-29-2022 04:45-0400 Heart rate 87 /min Jeremy Gaby [facility] [place] 03-29-2022 04:45-0400 Mean blood pressure 80 mm[Hg] Jeremy Gaby [facility] [place] 03-29-2022 04:45-0400 Respiratory rate 18 /min Jeremy Gaby [facility] [place] 03-29-2022 04:45-0400 SaO2% (BldA) [Mass fraction] 98 % Jeremy Gaby [facility] [place] 03-29-2022 04:45-0400 Systolic blood pressure 120 mm[Hg] Jeremy Gaby [facility] [place] 03-29-2022 04:00-0400 Body temperature 98.6 [degF] Jeremy Gaby [facility] [place] 03-29-2022 04:00-0400 Diastolic blood pressure 70 mm[Hg] Jeremy Gaby [facility] [place] 03-29-2022 04:00-0400 Heart rate 86 /min Jeremy Gaby [facility] [place] 03-29-2022 04:00-0400 Mean blood pressure 88 mm[Hg] Jeremy Gaby [facility] [place] 03-29-2022 04:00-0400 Respiratory rate 17 /min Jeremy Gaby [facility] [place] 03-29-2022 04:00-0400 SaO2% (BldA) [Mass fraction] 99 % Jeremy Gaby [facility] [place] 03-29-2022 04:00-0400 Systolic blood pressure 125 mm[Hg] Jeremy Gaby [facility] [place] 03-29-2022 03:00-0400 Diastolic blood pressure 88 mm[Hg] Jeremy Gaby [facility] [place] 03-29-2022 03:00-0400 Heart rate 88 /min Jeremy Gaby [facility] [place] 03-29-2022 03:00-0400 Mean blood pressure 99 mm[Hg] Jeremy Gaby [facility] [place] 03-29-2022 03:00-0400 Systolic blood pressure 122 mm[Hg] Jeremy Gaby [facility] [place] 03-21-2022 06:14-0400 Diastolic blood pressure 107 mm[Hg] Jeremy Gaby [facility] [place] 03-21-2022 06:14-0400 Heart rate 107 /min Jeremy Gaby [facility] [place] 03-21-2022 06:14-0400 Mean blood pressure 113 mm[Hg] Jeremy Gaby [facility] [place] 03-21-2022 06:14-0400 SaO2% (BldA) [Mass fraction] 94 % Jeremy Gaby [facility] [place] 03-21-2022 06:14-0400 Systolic blood pressure 126 mm[Hg] Jeremy Gaby [facility] [place] 03-21-2022 04:13-0400 Diastolic blood pressure 77 mm[Hg] Jeremy Gaby [facility] [place] 03-21-2022 04:13-0400 Heart rate 99 /min Jeremy Gaby [facility] [place] 03-21-2022 04:13-0400 Mean blood pressure 97 mm[Hg] Jeremy Gaby [facility] [place] 03-21-2022 04:13-0400 SaO2% (BldA) [Mass fraction] 95 % Jeremy Gaby [facility] [place] 03-21-2022 04:13-0400 Systolic blood pressure 136 mm[Hg] Jeremy Gaby [facility] [place] 03-21-2022 03:48-0400 Body temperature 98.06 [degF] Jeremy Gaby [facility] [place] 03-21-2022 03:48-0400 Diastolic blood pressure 53 mm[Hg] Jeremy Gaby [facility] [place] 03-21-2022 03:48-0400 Heart rate 83 /min Jeremy Gaby [facility] [place] 03-21-2022 03:48-0400 Respiratory rate 30 /min Jeremy Gaby [facility] [place] 03-21-2022 03:48-0400 SaO2% (BldA) [Mass fraction] 96 % Jeremy Gaby [facility] [place] 03-21-2022 03:48-0400 Systolic blood pressure 99 mm[Hg] Jeremy Browningner [facility] [place] 02-05-2022 15:38-0400 Body temperature 97.7 [degF] Rosa Orzech [facility] 02-05-2022 15:38-0400 Diastolic blood pressure 80 mm[Hg] Rosa Orzech [facility] 02-05-2022 15:38-0400 Heart rate 101 /min Rosa Orzech [facility] 02-05-2022 15:38-0400 SaO2% (BldA) [Mass fraction] 98 % Rosa [employer] [facility] 02-05-2022 15:38-0400 Systolic blood pressure 118 mm[Hg] Rosa Acacia [employer] [facility] Encounters Encounter Date Encounter Type Care Provider Facility Start: 07-19-2023 End: 07-20-2023 ambulatory MEAGHAN IVY Not Available Start: 05-07-2023 End: 05-08-2023 ambulatory MADDIE HAGEN Facility:[facility] Start: 03-29-2023 End: 03-29-2023 Emergency department patient visit Jeremy Griffin Facility[place] Start: 03-29-2023 End: 03-29-2023 Emergency department patient visit Jeremy Griffin [facility] [place] Start: 01-16-2023 End: 01-17-2023 ambulatory Srikanth Mathews Facility:[facility] Start: 01-16-2023 End: 01-16-2023 Patient encounter procedure Srikanth LastBonifacio Contehey [facility] Start: 11-10-2022 End: 11-11-2022 [facility] Start: 11-10-2022 End: 11-10-2022 Patient encounter procedure Tate SALAM [facility] Start: 11-09-2022 End: 11-10-2022 ambulatory Health system Facility:[facility] Start: 11-09-2022 End: 11-09-2022 Lab Drop off Tate SALAM [facility] [place] Start: 11-06-2022 End: 11-06-2022 Emergency department patient visit Ehangelito Linares Facility:[facility] Start: 05-13-2022 End: 05-14-2022 [facility] Start: 05-13-2022 End: 05-13-2022 Patient encounter procedure Tate SALAM [facility] Start: 05-04-2022 End: 05-04-2022 [facility] [place] Start: 04-21-2022 End: 04-21-2022 Patient encounter procedure Tate SALAM [facility] [place] Start: 04-12-2022 End: 04-12-2022 Patient encounter procedure Precious Garrison [facility] Start: 04-07-2022 End: 04-07-2022 [facility] [place] Start: 03-29-2022 End: 03-29-2022 Emergency department patient visit Jeremy Griffin [facility] [place] Start: 03-21-2022 End: 03-21-2022 Emergency department patient visit Jeremy Griffin [facility] [place] Start: 02-05-2022 End: 02-05-2022 Patient encounter procedure Rosa X Orzech [facility] Procedures Date Procedure Procedure Detail Performing Clinician Start: 04-21-2022 Colonoscopy Tate [employer] Start: 04-21-2022 Esophagogastroduodenoscopy gastric outlet reduction Tate SALAM Colonoscopy Precious Meli Esophagogastroduodenoscopy B joshua Meli Immunizations Immunization Date Immunization Notes Care Provider [facility] 11-06-2022 tetanus toxoid, reduced diphtheria toxoid, and acellular pertussis vaccine, adsorbed Tate SALAM [facility] [place] 08-26-2021 SARS-CoV-2 mRNA (tcnwbbaqzlr-jaiz-jff luigi) vaccine Tate SALAM [facility] 08-05-2021 SARS-CoV-2 mRNA (fxcodidvvtj-gcfq-wjx luigi) vaccine Tate SALAM [facility] 05-01-2007 poliovirus vaccine, unspecified formulation Tate SALAM [facility] 12-27-2006 DTaP, unspecified formulation Tate [employer] [facility] 12-27-2006 haemophilus influenzae type b vaccine, PRP-T conjugate Tate SALAM [facility] 12-27-2006 measles, mumps, rubella, and varicella virus vaccine Tate SALAM [facility] 08-29-2003 diphtheria, tetanus toxoids and acellular pertussis vaccine Tate SALAM [facility] 08-29-2003 haemophilus influenzae type b vaccine, PRP-T conjugate Tate SALAM [facility] 05-01-2003 measles, mumps and rubella virus vaccine Tate SALAM [facility] 05-01-2003 varicella virus vaccine Tate SALAM [facility] 02-26-2003 DTaP, unspecified formulation Tate SALAM [facility] 02-26-2003 hepatitis B vaccine, pediatric or pediatric/adolescent dosage Tate SALAM [facility] 02-26-2003 Hib, unspecified formulation Tate SALAM [facility] 09-26-2002 DTaP, unspecified formulation Tate SALAM [facility] 09-26-2002 hepatitis B vaccine, pediatric or pediatric/adolescent dosage Tate SALAM [facility] 09-26-2002 Hib, unspecified formulation Tate SALAM [facility] 04-09-2002 DTaP, unspecified formulation Tate SALAM [facility] 04-09-2002 hepatitis B vaccine, pediatric or pediatric/adolescent dosage Tate SALAM [facility] 04-09-2002 Hib, unspecified formulation Tate SALAM [facility] 2001 hepatitis B vaccine, pediatric or pediatric/adolescent dosage Tate SALAM [facility] NEGATED: Highlighted row has not occurred!05-13-2022 influenza virus vaccine, unspecified formulation Tate SALAM [facility] NEGATED: Highlighted row has not occurred!04-12-2022 influenza virus vaccine, unspecified formulation Precious Garrison [facility] Payers Date Payer Category Payer Medicaid [id number] 2022 Medicaid [id number] 2001 Unknown [id number] [id number] 2001 Unknown [id number] 2.16.8 [id number] 2001 Unknown [id number] 2.16.8 [id number] 2001 Unknown [id number] 2.16.8 [id number] 2001 Unknown [id number] 2.16.8 [id number] 2001 Unknown [id number] 2.16.8 [id number] 2001 Unknown [id number] 2.16.8 [id number] 2001 Unknown [id number] Social History Date Type Detail Facility Start: 11-24-2020 End: 01-16-2023 Tobacco smoking status Never smoked tobacco (finding) [facility] Care Sex Assigned At Male [facility] Tobacco smoking status Never [facility] Start: 11-06-2022 Tobacco smoking status Light tobacco smoker (finding) [facility] [place] Start: 11-10-2022 Tobacco smoking status Ex-smoker (finding) [facility] Tobacco smoking status Occasional tobacco smoker (finding) [facility] Functional Status Date Assessment Result Facility 03-29-2023 Functional Status N/A [facility] 11-10-2022 Functional Status N/A [facility] 05-13-2022 Functional Status N/A [facility] 05-04-2022 Functional Status N/A [facility] 04-21-2022 Functional Status N/A [facility] 04-12-2022 Functional Status N/A [facility] 04-07-2022 Functional Status N/A [facility] 03-29-2022 Functional Status N/A [facility] 03-21-2022 Functional Status N/A [facility] 02-05-2022 Functional Status N/A [facility] Clinical Notes 02-05-2022 to 03-29-2023 Note Date & Type Note Facility 03-29-2023 Evaluation + Plan note Extrac anayeli from: Title:ED Note Author:Jeremy Griffin DO Date :03/29/23 Acute pharyngitis (J02.9: Ac akiak pharyngitis, unspecified) Orders: ondansetron, 4 mg = 1 tab(s), Tab-Dis, Oral, Once, Stop date 03/29/23 2:20:00 EDT, STAT, Start date 03/29/23 2:20:00 EDT, 03/29/23 2:20:00 EDT ondansetron, 4 mg = 1 tab(s), Oral, q8hr, PRN Nausea/Vomiting, # 16 tab(s), Refills(s) 0, Pharmacy: [facility], 180, cm, 03/29/23 2:12:00 EDT, Height/Length Dosing, 126.5, kg, 03/29/23 2:12:00 EDT, Weight Dosing Group A Strep by PCR Mononucleosis Screen Rapid Strep w/rfx Future Scheduled Tests Laboratory* Calprotectin, Fecal 04/28/22 * Sedimentation Rate Automated 04/28/22 * C-Reactive Protein 04/28/22 [facility] [place]2023 Hospital Discharge instructions Patient Education 03/29/2023 03:10:53 Pharyngitis Pharyngitis Pharyngitis is inflammation of the throat (pharynx). It is a very common cause of sore throat. Pharyngitis can be caused by a bacteria, but it is usually caused by a virus. Most cases of pharyngitis get better on their own without treatment. What are the causes? This condition may be caused by: Infection by viruses (viral). Viral pharyngitis spreads easily from person to person (is contagious) through coughing, sneezing, and sharing of personal items or utensils such as cups, forks, spoons,and toothbrushes. Infection by bacteria (bacterial). Bacterial pharyngitis may be spread by touching the nose or faceafter coming in contact with the bacteria, or through close contact, such as kissing. Allergies. Allergies can cause buildup of mucus in the throat (post-nasal drip), leading to inflammation and irritation. Allergies can also cause blocked nasal passages, forcing breathing through themouth, which dries and irritates the throat. What increases the risk? You are more likely to develop this condition if: You are 5 24 years old. You are exposed to crowded environments such as daycare, school, or dormitory living. You live in a cold climate. You have a weakened disease-fighting (immune) system. What are the signs or symptoms? Symptoms of this condition vary by the cause. Common symptoms of this condition include: Sore throat. Fatigue. Low-grade fever. Stuffy nose (nasal congestion) and cough. Headache. Other symptoms may include: Glands in the neck (lymph nodes) that are swollen. Skin rashes. Plaque-like film on the throat or tonsils. This is often a symptom of bacterial pharyngitis. Vomiting. Red, itchy eyes (conjunctivitis). Loss of appetite. Joint pain and muscle aches. Enlarged tonsils. How is this diagnosed? This condition may be diagnosed based on your medical history and a physical exam. Your health careprovider will ask you questions about your illness and your symptoms. A swab of your throat may be done to check for bacteria (rapid strep test). Other lab tests may also be done, depending on the suspected cause, but these are rare. How is this treated? Many times, treatment is not needed for this condition. Pharyngitis usually gets better in 3 4 dayswithout treatment. Bacterial pharyngitis may be treated with antibiotic medicines. Follow these instructions at home: Medicines Take mxkp-twn-nofmxpr and prescription medicines only as told by your health care provider. If you were prescribed an antibiotic medicine, take it as told by your health care provider. Do notstop taking the antibiotic even if you start to feel better. Use throat sprays to soothe your throat as told by your health care provider. Children can get pharyngitis. Do not give your child aspirin because of the association with Chanel'ssyndrome. Managing pain To help with pain, try: Sipping warm liquids, such as broth, herbal tea, or warm water. Eating or drinking cold or frozen liquids, such as frozen ice pops. Gargling with a mixture of salt and water 3 4 times a day or as needed. To make salt water, completely dissolve 1 tsp (3 6 g) of salt in 1 cup (237 mL) of warm water. Sucking on hard candy or throat lozenges. Putting a cool-mist humidifier in your bedroom at night to moisten the air. Sitting in the bathroom with the door closed for 5 10 minutes while you run hot water in the shower. General instructions Do not use any products that contain nicotine or tobacco. These products include cigarettes, chewing tobacco, and vaping devices, such as e-cigarettes. If you need help quitting, ask your health careprovider. Rest as told by your health care provider. Drink enough fluid to keep your urine pale yellow. How is this prevented? To help prevent becoming infected or spreading infection: Wash your hands often with soap and water for at least 20 seconds. If soap and water are not available, use hand truck operator. Do not touch your eyes, nose, or mouth with unwashed hands, and wash hands after touching these areas. Do not share cups or eating utensils. Avoid close contact with people who are sick. Contact a health care provider if: You have large, tender lumps in your neck. You have a rash. You cough up green, yellow-brown, or bloody mucus. Get help right away if: Your neck becomes stiff. You drool or are unable to swallow liquids. You cannot drink or take medicines without vomiting. You have severe pain that does not go away, even after you take medicine. You have trouble breathing, and it is not caused by a stuffy nose. You have new pain and swelling in your joints such as the knees, ankles, wrists, or elbows. These symptoms may represent a serious problem that is an emergency. Do not wait to see if the symptoms will go away. Get medical help right away. Call your local emergency services (911 in the [place] Do not drive yourself to the hospital. Summary Pharyngitis is redness, pain, and swelling (inflammation) of the throat (pharynx). While pharyngitis can be caused by a bacteria, the most common causes are viral. Most cases of pharyngitis get better on their own without treatment. Bacterial pharyngitis is treated with antibiotic medicines. This information is not intended to replace advice given to you by your health care provider. Make sure you discuss any questions you have with your health care provider. Document Revised: 10/14/2021 Document Reviewed: 10/14/2021 [employer] Patient Education 2022 [employer]. Follow Up Care 03/29/2023 02:04:14 With:TREY LEMA Address: [address] [place] [id number] Business (1) When:Within 3 Day(s) [facility] [place]06-[facility]2023 Hospital Discharge instructions Patient Education 01/16/2023 14:02:47 Rash, Adult Rash, Adult A rash is a change in the color of your skin. A rash can also change the way your skin feels. Thereare many different conditions and factors that can cause a rash. Some rashes may disappear after a few days, but some may last for a few weeks. Common causes of rashes include: Viral infections, such as: ?Colds. ?Measles. ?Hand, foot, and mouth disease. Bacterial infections, such as: ?Scarlet fever. ?Impetigo. Fungal infections, such as Rachelle. Allergic reactions to food, medicines, or skin care products. Follow these instructions at home: The goal of treatment is to stop the itching and keep the rash from spreading. Pay attention to anychanges in your symptoms. Follow these instructions to help with your condition: Medicine Take or apply rxbo-lze-zqrjfux and prescription medicines only as told by your health care provider. These may include: Corticosteroid creams to treat red or swollen skin. Anti-itch lotions. Oral allergy medicines (antihistamines). Oral corticosteroids for severe symptoms. Skin care Apply cool compresses to the affected areas. Do not scratch or rub your skin. Avoid covering the rash. Make sure the rash is exposed to air as much as possible. Managing itching and discomfort Avoid hot showers or baths, which can make itching worse. A cold shower may help. Try taking a bath with: ?Epsom salts. Follow manufacturing technology professor instructions on the packaging. You can get these at your local pharmacy or grocery store. ?Baking soda. Pour a small amount into the bath as told by your health care provider. ?Colloidal oatmeal. Follow manufacturing technology professor instructions on the packaging. You can get this at your local pharmacy or grocery store. Try applying baking soda paste to your skin. Stir water into baking soda until it reaches a paste-like consistency. Try applying calamine lotion. This is an tqxl-afr-rrsldvo lotion that helps to relieve itchiness. Keep cool and out of the sun. Sweating and being hot can make itching worse. General instructions Rest as needed. Drink enough fluid to keep your urine pale yellow. Wear loose-fitting clothing. Avoid scented soaps, detergents, and perfumes. Use gentle soaps, detergents, perfumes, and other cosmetic products. Avoid any substance that causes your rash. Keep a journal to help track what causes your rash. Write down: ?What you eat. ?What cosmetic products you use. ?What you drink. ?What you wear. This includes jewelry. Keep all follow-up visits as told by your health care provider. This is important. Contact a health care provider if: You sweat at night. You lose weight. You urinate more than normal. You urinate less than normal, or you notice that your urine is a darker color than usual. You feel weak. You vomit. Your skin or the whites of your eyes look yellow (jaundice). Your skin: ?Tingles. ?Is numb. Your rash: ?Does not go away after several days. ?Gets worse. You are: ?Unusually thirsty. ?More tired than normal. You have: ?New symptoms. ?Pain in your abdomen. ?A fever. ?Diarrhea. Get help right away if you: Have a fever and your symptoms suddenly get worse. Develop confusion. Have a severe headache or a stiff neck. Have severe joint pains or stiffness. Have a seizure. Develop a rash that covers all or most of your body. The rash may or may not be painful. Develop blisters that: ?Are on top of the rash. ?Grow larger or grow together. ?Are painful. ?Are inside your nose or mouth. Develop a rash that: ?Looks like purple pinprick-sized spots all over your body. ?Has a bull's eye or looks like a target. ?Is not related to sun exposure, is red and painful, and causes your skin to peel. Summary A rash is a change in the color of your skin. Some rashes disappear after a few days, but some may last for a few weeks. The goal of treatment is to stop the itching and keep the rash from spreading. Take or apply otox-ncl-ekcrpde and prescription medicines only as told by your health care provider. Contact a health care provider if you have new or worsening symptoms. Keep all follow-up visits as told by your health care provider. This is important. This information is not intended to replace advice given to you by your health care provider. Make sure you discuss any questions you have with your health care provider. Document Revised: 04/29/2022 Document Reviewed: 04/29/2022 [employer] Patient Education 2022 [employer]. Follow Up Care 01/16/2023 13:16:47 With:TREY LEMA DO Address: [address] [place] [address] [place] [address]- When: Unknown [facility] 10-04-2022 Evaluation + Plan noteExtracted from: Title:ED Note Author:Suhail MS III, Ceasar Qiu te:05/04/22 1. Chest wall pain (R07.89: Other chest pain) Orders: ketorolac, 30 mg = 1 mL, Injection, IV Push, Once, Stop date 05/04/22 1:33:00 EDT, STAT, Start date 05/04/22 1:33:00 EDT, 05/04/22 1:33:00 EDT Automated Diff B-Type Natriuretic Peptide Basic Metabolic Panel CBC w/ Auto Diff D-Dimer ECG 12 Lead Adult ED Cardiac Monitoring eGFR Magnesium Level Oxygen Saturation Oxygen Therapy PT & PTT Saline Lock Insert Troponin 0 Hr. TSH With T4fr Reflex XR Chest 2 Views Future Appointments Appointment Date:05/05/2022 10:30:00 AM Scheduled Provider: Location:.[facility] Appointment Type:CT Abdomen/Pelvis Combo (FT) Future Scheduled Tests Laboratory* Calprotectin, Fecal 04/28/22 * Sedimentation Rate Automated 04/28/22 * C-Reactive Protein 04/28/22 Radiology* CT Abdomen/Pelvis w/contrast (enterography) 05/05/22 [facility]10-04-2022 Hospital Discharge instructions Patient Education 05/04/2022 02:50:49 Chest Wall Pain Chest Wall Pain Chest wall pain is pain in or around the bones and muscles of your chest. Sometimes, an injury causes this pain. Excessive coughing or overuse of arm and chest muscles may also cause chest wall pain.Sometimes, the cause may not be known. This pain may take several weeks or longer to get better. Follow these instructions at home: Managing pain, stiffness, and swelling If directed, put ice on the painful area: ?Put ice in a plastic bag. ?Place a towel between your skin and the bag. ?Leave the ice on for 20 minutes, 2 3 times per day. Activity Rest as told by your health care provider. Avoid activities that cause pain. These include any activities that use your chest muscles or your abdominal and side muscles to lift heavy items. Ask your health care provider what activities are safe for you. General instructions Take fzit-xgn-xicbctm and prescription medicines only as told by your health care provider. Do not use any products that contain nicotine or tobacco, such as cigarettes, e- cigarettes, and chewing tobacco. These can delay healing after injury. If you need help quitting, ask your health care provider. Keep all follow-up visits as told by your health care provider. This is important. Contact a health care provider if: You have a fever. Your chest pain becomes worse. You have new symptoms. Get help right away if: You have nausea or vomiting. You feel sweaty or light-headed. You have a cough with mucus from your lungs (sputum) or you cough up blood. You develop shortness of breath. These symptoms may represent a serious problem that is an emergency. Do not wait to see if the symptoms will go away. Get medical help right away. Call your local emergency services (911 in the [place] Do not drive yourself to the hospital. Summary Chest wall pain is pain in or around the bones and muscles of your chest. Depending on the cause, it may be treated with ice, rest, medicines, and avoiding activities that cause pain. Contact a health care provider if you have a fever, worsening chest pain, or new symptoms. Get help right away if you feel light-headed or you develop shortness of breath. These symptoms maybe an emergency. This information is not intended to replace advice given to you by your health care provider. Make sure you discuss any questions you have with your health care provider. Document Released: 07/18/2006 Document Revised: 01/18/2019 Document Reviewed: 01/18/2019 [employer] Patient Education 2020 [employer]. Follow Up Care 05/04/2022 00:04:41 With:TREY LEMA Address: [address] [place] [address] Business (1) When:05/07/2022 Comments:Return to the emergency room if your pain gets worse or any new symptoms [facility]09-28-2022 Evaluation + Plan note Future Scheduled Tests Laboratory* Calprotectin, Fecal 04/28/22 * Sedimentation Rate Automated 04/28/22 * C-Reactive Protein 04/28/22 [facility] 09-21-2022 Hospital Discharge instructions Patient Education 04/21/2022 15:01:08 Colon Polyps Colon Polyps Polyps are tissue growths inside the body. Polyps can grow in many places, including the large intestine (colon). A polyp may be a round bump or a mushroom-shaped growth. You could have one polyp or several. Most colon polyps are noncancerous (benign). However, some colon polyps can become cancerous over time. Finding and removing the polyps early can help prevent this. What are the causes? The exact cause of colon polyps is not known. What increases the risk? You are more likely to develop this condition if you: Have a family history of colon cancer or colon polyps. Are older than 50 or older than 45 if you are . Have inflammatory bowel disease, such as ulcerative colitis or Crohn's disease. Have certain hereditary conditions, such as: ?Familial adenomatous polyposis. ?Brink syndrome. ?Turcot syndrome. ?Peutz Jeghers syndrome. Are overweight. Smoke cigarettes. Do not get enough exercise. Drink too much alcohol. Eat a diet that is high in fat and red meat and low in fiber. Had childhood cancer that was treated with abdominal radiation. What are the signs or symptoms? Most polyps do not cause symptoms. If you have symptoms, they may include: Blood coming from your rectum when having a bowel movement. Blood in your stool. The stool may look dark red or black. Abdominal pain. A change in bowel habits, such as constipation or diarrhea. How is this diagnosed? This condition is diagnosed with a colonoscopy. This is a procedure in which a lighted, flexible scope is inserted into the anus and then passed into the colon to examine the area. Polyps are sometimes found when a colonoscopy is done as part of routine cancer screening tests. How is this treated? Treatment for this condition involves removing any polyps that are found. Most polyps can be removed during a colonoscopy. Those polyps will then be tested for cancer. Additional treatment may be needed depending on the results of testing. Follow these instructions at home: Lifestyle Maintain a healthy weight, or lose weight if recommended by your health care provider. Exercise every day or as told by your health care provider. Do not use any products that contain nicotine or tobacco, such as cigarettes and e-cigarettes. If you need help quitting, ask your health care provider. If you drink alcohol, limit how much you have: ?0 1 drink a day for women. ? 0 2 drinks a day for men. Be aware of how much alcohol is in your drink. In the [place] one drink equals one 12 oz bottle of beer (355 mL), one 5 oz glass of wine (148 mL), or one 1 oz shot of hard liquor (44 mL). Eating and drinking Eat foods that are high in fiber, such as fruits, vegetables, and whole grains. Eat foods that are high in calcium and vitamin D, such as milk, cheese, yogurt, eggs, liver, fish, and broccoli. Limit foods that are high in fat, such as fried foods and desserts. Limit the amount of red meat and processed meat you eat, such as hot dogs, sausage, crain, and lunch meats. General instructions Keep all follow-up visits as told by your health care provider. This is important. ?This includes having regularly scheduled colonoscopies. ?Talk to your health care provider about when you need a colonoscopy. Contact a health care provider if: You have new or worsening bleeding during a bowel movement. You have new or increased blood in your stool. You have a change in bowel habits. You lose weight for no known reason. Summary Polyps are tissue growths inside the body. Polyps can grow in many places, including the colon. Most colon polyps are noncancerous (benign), but some can become cancerous over time. This condition is diagnosed with a colonoscopy. Treatment for this condition involves removing any polyps that are found. Most polyps can be removed during a colonoscopy. This information is not intended to replace advice given to you by your health care provider. Make sure you discuss any questions you have with your health care provider. Document Released: 04/13/2005 Document Revised: 11/02/2018 Document Reviewed: 11/02/2018 [employer] Patient Education 2020 [employer]. 04/21/2022 15:01:08 Colonoscopy, Care After Surgery [facility] (Custom) Colonoscopy Care After Surgery Please read the instructions outlined below and refer to this sheet in the next few weeks. These discharge instructions provide you with general information on caring [facility] Your doctor may also give you specific instructions. While your treatment has been planned according to the most current medical practices available, unavoidable complications occasionally occur. If you have any problems or questions after discharge, please call your doctor. ACTIVITY You may resume your regular activity, but move at a slower pace for the next 24 hours. Take frequent rest periods for the next 24 hours. Walking will help get rid of the air and reduce the bloated feeling in your abdomen (belly). No driving for 24 hours (because of the anesthesia (medicine) used during the test). You may shower. Do not sign any important legal documents or operate any machinery for 24 hours (because of the anesthesia used during the test). NUTRITION Drink plenty of fluids. You may resume your normal diet as instructed by your doctor. Begin with a light meal and progress to your normal diet. Heavy or fried foods are harder to digestand may make you feel nauseated (sick to your stomach). Avoid alcoholic beverages for 24 hours or as instructed. MEDICATIONS You may resume your normal medications unless your doctor tells you otherwise. WHAT YOU CAN EXPECT TODAY Some feelings of bloating in the abdomen. Passage of more gas than usual. Spotting of blood in your stool or on the toilet paper. FOLLOW-UP Your doctor will discuss the results of your test with you. SEEK IMMEDIATE MEDICAL ATTENTION IF: There is more than a spotting of blood in your stool. There is abdominal distention (your abdomen is swollen). There is vomiting. You have a temperature over 101.5 F. There is abdominal pain or discomfort that is severe or gets worse throughout the day. 04/21/2022 15:01:08 Upper Endoscopy, Adult, Care After Upper Endoscopy, Adult, Care After This sheet gives you information about how to care for yourself after your procedure. Your health care provider may also give you more specific instructions. If you have problems or questions, contact your health care provider. What can I expect after the procedure? After the procedure, it is common to have: A sore throat. Mild stomach pain or discomfort. Bloating. Nausea. Follow these instructions at home: Follow instructions from your health care provider about what to eat or drink after your procedure. Return to your normal activities as told by your health care provider. Ask your health care provider what activities are safe for you. Take mbku-zmi-fciytdv and prescription medicines only as told by your health care provider. Do not drive for 24 hours if you were given a sedative during your procedure. Keep all follow-up visits as told by your health care provider. This is important. Contact a health care provider if you have: A sore throat that lasts longer than one day. Trouble swallowing. Get help right away if: You vomit blood or your vomit looks like coffee grounds. You have: ?A fever. ?Bloody, black, or tarry stools. ?A severe sore throat or you cannot swallow. ?Difficulty breathing. ?Severe pain in your chest or abdomen. Summary After the procedure, it is common to have a sore throat, mild stomach discomfort, bloating, and nausea. Do not drive for 24 hours if you were given a sedative during the procedure. Follow instructions from your health care provider about what to eat or drink after your procedure. Return to your normal activities as told by your health care provider. This information is not intended to replace advice given to you by your health care provider. Make sure you discuss any questions you have with your health care provider. Document Released: 01/16/2013 Document Revised: 01/09/2019 Document Reviewed: 12/18/2018 [employer] Patient Education 2019 [employer]. Follow Up Care 04/12/2022 10:15:03 With:Bebeto GRANADO Address: [address] [place] [address] Business (1) When: Unknown Comments:Call for any problems.Office will call if follow up is needed. [facility]09-21-2022 Evaluation + Plan noteExtracted from: Title:Anesthesia post op endo Author:Zeus Avila MD Date:04/21/22 Plan Transfer/ Discharge: Patient can be discharged from PACU when criteria met. Condition good. Extracted from: Title:Anesthesia Pre-Op endo Author:Jeovany Avila MD Date:04/21/22 Plan [place] [employer]hesi[employer] (ASA) physical status classification: Class II. Anesthetic Preoperative Plan Anesthesia: General. . Anesthetic plan, risks, benefits, and alternatives discussed with the patient and/or family. Patient verbalized understanding. Pt agrees with anesthetic plan and accepts all risks including but not limited to; Bleeding, infection(including covid-19), nerve injury, dental injury, eye injury, headache, low blood pressure, serious problems with the heart and lungs, allergic reactions, and .. Future Scheduled Tests Laboratory* Calprotectin, Fecal 04/28/22 * Sedimentation Rate Automated 04/28/22 * C-Reactive Protein 04/28/22 Radiology* CT Abdomen/Pelvis w/contrast (enterography) 04/28/22 [facility]09-12-2022 Hospital Discharge instructions Patient Education 04/12/2022 09:50:40 Abdominal Pain, Adult Abdominal Pain, Adult Pain in the abdomen (abdominal pain) can be caused by many things. Often, abdominal pain is not serious and it gets better with no treatment or by being treated at home. However, sometimes abdominal pain is serious. Your health care provider will ask questions about your medical history and do a physical exam to try to determine the cause of your abdominal pain. Follow these instructions at home: Medicines Take bfqu-ena-xhhxebr and prescription medicines only as told by your health care provider. Do not take a laxative unless told by your health care provider. General instructions Watch your condition for any changes. Drink enough fluid to keep your urine pale yellow. Keep all follow-up visits as told by your health care provider. This is important. Contact a health care provider if: Your abdominal pain changes or gets worse. You are not hungry or you lose weight without trying. You are constipated or have diarrhea for more than 2 3 days. You have pain when you urinate or have a bowel movement. Your abdominal pain wakes you up at night. Your pain gets worse with meals, after eating, or with certain foods. You are vomiting and cannot keep anything down. You have a fever. You have blood in your urine. Get help right away if: Your pain does not go away as soon as your health care provider told you to expect. You cannot stop vomiting. Your pain is only in areas of the abdomen, such as the right side or the left lower portion of the abdomen. Pain on the right side could be caused by appendicitis. You have bloody or black stools, or stools that look like tar. You have severe pain, cramping, or bloating in your abdomen. You have signs of dehydration, such as: ?Dark urine, very little urine, or no urine. ?Cracked lips. ?Dry mouth. ?Sunken eyes. ?Sleepiness. ?Weakness. You have trouble breathing or chest pain. Summary Often, abdominal pain is not serious and it gets better with no treatment or by being treated at home. However, sometimes abdominal pain is serious. Watch your condition for any changes. Take zzte-oau-lgojhpu and prescription medicines only as told by your health care provider. Contact a health care provider if your abdominal pain changes or gets worse. Get help right away if you have severe pain, cramping, or bloating in your abdomen. This information is not intended to replace advice given to you by your health care provider. Make sure you discuss any questions you have with your health care provider. Document Released: 04/27/2006 Document Revised: 11/26/2019 Document Reviewed: 11/26/2019 [employer] Patient Education 2019 [employer]. Follow Up Care 03/29/2022 10:20:42 With:Precious Garrison CNP Address: When:1 to 2 weeks [facility] 09-07-2022 Hospital Discharge instructions Patient Education 04/07/2022 21:28:13 Mononucleosis Rapid Test Mononucleosis Rapid Test Why am I having this test? This test is used to diagnose infectious mononucleosis (IM), which is often called mono. This is an infection caused by the Lucero Olsen virus (EBV). You may have this test if you have symptoms of mononucleosis, such as: Sore throat. Headache. Extreme fatigue. Muscle aches. Swollen glands. Fever. Poor appetite. Rash. Enlarged liver or spleen. Nausea. Abdominal pain. What is being tested? This test checks for the presence of heterophil antibodies in your blood. Antibodies are a type of cell that is part of the body's disease-fighting (immune) system. After you get an EBV infection, your body makes heterophil antibodies. These stay in your body after you recover and protect you from g etting mononucleosis again (make you immune to the infection). What kind of sample is taken? A blood sample is required for this test. It is usually collected by inserting a needle into a blood vessel. How are the results reported? Your test results will be reported as either positive or negative. Positive means that you have theantibodies, and negative means that you do not have the antibodies. What do the results mean? A negative result is considered normal. This result means that you do not have mononucleosis. A positive result may mean that you currently have mononucleosis or that you have had the conditionin the last year. It could also mean that you have: A long-term (chronic) EBV infection. Chronic fatigue syndrome. Burkitt lymphoma. Some types of chronic hepatitis. Talk with your health care provider about what your results mean. Questions to ask your health care provider Ask your health care provider, or the department that is doing the test: When will my results be ready? How will I get my results? What are my treatment options? What other tests do I need? What are my next steps? Summary This test is used to help diagnose infectious mononucleosis (IM), which is often called mono. A negative result is considered normal. This result means that you do not have the condition. A positive result may mean that you currently have mononucleosis or that you have had the conditionin the last year. It could also mean that you have one of the other diseases that can cause a positive result. This information is not intended to replace advice given to you by your health care provider. Make sure you discuss any questions you have with your health care provider. Document Released: 08/20/2005 Document Revised: 11/09/2019 Document Reviewed: 03/20/2018 [employer] Patient Education 2020 [employer]. 04/07/2022 21:28:13 Infectious Mononucleosis Infectious Mononucleosis Infectious mononucleosis is a viral infection. It is often referred to as mono. It causes symptoms that affect various areas of the body, including the throat, upper air passages, and lymph glands.The liver or spleen may also be affected. The virus spreads from person to person (is contagious) through close contact. The illness is usually not serious, and it typically goes away in 2 4 weeks without treatment. In rare cases, symptoms can be more severe and last longer, sometimes up to several months. What are the causes? This condition is commonly caused by the Lucero Olsen virus. This virus spreads through: Having contact with an infected person's saliva or other bodily fluids, often through: ?Kissing. ?Sex. ?Coughing. ?Sneezing. Sharing utensils or drinking glasses with an infected person. Receiving blood from an infected donor (blood transfusion). Receiving an organ from an infected donor (organ transplant). What increases the risk? You are more likely to develop this condition if: You are 15 24 years old. What are the signs or symptoms? Symptoms of this condition usually appear 4 6 weeks after infection. Symptoms may develop slowly and occur at different times. Common symptoms include: Sore throat. Headache. Extreme fatigue. Muscle aches. Swollen glands. Fever. Poor appetite. Rash. Other symptoms include: Enlarged liver or spleen. Nausea. Abdominal pain. How is this diagnosed? This condition may be diagnosed based on: Your medical history. Your symptoms. A physical exam. Blood tests to confirm the diagnosis. How is this treated? There is no cure for this condition. Infectious mononucleosis usually goes away on its own with time. Treatment can help relieve symptoms and may include: Taking medicines to relieve pain and fever. Drinking plenty of fluids. Getting a lot of rest. Medicine (corticosteroids)to reduce swelling. This may be used if swelling in the throat causes breathing or swallowing problems. In some severe cases, treatment may have to be given in a hospital. Follow these instructions at home: Medicines Take zrst-iyx-vsglfgv and prescription medicines only as told by your health care provider. Do not take ampicillin or amoxicillin. This may cause a rash. If you are under 18, do not take aspirin because of the association with Chanel's syndrome. Activity Rest as needed. Do not participate in any of the following activities until your health care provider approves: ?Contact sports. You may need to wait at least a month before participating in sports. ?Exercise that requires a lot of energy. ?Heavy lifting. Gradually resume your normal activities after your fever is gone, or when your health care providertells you that you can. Be sure to rest when you get tired. General instructions Avoid kissing or sharing utensils or drinking glasses until your health care provider tells you that you are no longer contagious. Drink enough fluid to keep your urine pale yellow. Do not drink alcohol. If you have a sore throat: ?Gargle with a salt-water mixture 3 4 times a day or as needed. To make a salt- water mixture, completely dissolve 1 tsp (3 6 g) of salt in 1 cup (237 mL) of warm water. ?Eat soft foods. Cold foods such as ice cream or ice pops can soothe a sore throat. ?Try sucking on hard candy. Wash your hands often with soap and water to avoid spreading the infection. If soap and water are not available, use hand truck operator. Keep all follow-up visits as told by your health care provider. This is important. How is this prevented? Avoid contact with people who are infected with mononucleosis. An infected person may not always appear ill, but he or she can still spread the virus. Avoid sharing utensils, drinking glasses, or toothbrushes. Wash your hands frequently with soap and water. If soap and water are not available, use hand truck operator. Use the inside of your elbow to cover your mouth when coughing or sneezing. Contact a health care provider if: Your fever is not gone after 10 days. You have swollen lymph nodes that are not back to normal after 4 weeks. Your activity level is not back to normal after 2 months. Your skin or the white parts of your eyes turn yellow (jaundice). You have constipation. This means that you are having: ?Fewer bowel movements in a week than normal. ?Difficulty passing stool. ?Stools that are dry, hard, or larger than normal. Get help right away if: You have severe pain in your abdomen or shoulder. You are drooling. You have trouble swallowing. You have trouble breathing. You develop a stiff neck. You develop a severe headache. You cannot stop vomiting. You have jerky movements that you cannot control (seizures). You are confused. You have trouble with balance. Your nose or gums begin to bleed. You have signs of dehydration. These may include: ?Weakness. ?Sunken eyes. ?Pale skin. ?Dry mouth. ?Rapid breathing or pulse. Summary Infectious mononucleosis, or mono, is an infection caused by the Lucero Olsen virus. The virus that causes this condition is spread through bodily fluids. The virus is most commonly spread by kissing or sharing drinks or utensils with an infected person. You are more likely to develop this condition if you are 15 24 years old. Symptoms of this condition include sore throat, headache, fever, swollen glands, muscle aches, extreme fatigue, and swollen liver or spleen. There is no cure for this condition. Treatment can help relieve symptoms and may include drinking plenty of fluids, getting a lot of rest, and taking medicines. This information is not intended to replace advice given to you by your health care provider. Make sure you discuss any questions you have with your health care provider. Document Released: 2001 Document Revised: 11/09/2019 Document Reviewed: 05/02/2019 [employer] Patient Education 2020 [employer] 04/07/2022 21:20:14 Labyrinthitis, Kkny-cg-Bzjv Labyrinthitis Labyrinthitis is an infection of the inner ear. Your inner ear is made up of tubes and canals (labyrinth). These are filled with fluid. There are nerve cells in your inner ear that send hearing and balance signals to your brain. When germs get inside the tubes and canals, they harm the nerve cells that send signals to the brain. This condition is often caused by a virus. You may have: Dizziness. Ringing in the ears. Loss of hearing. Loss of balance. Stomach upset. Throwing up. Follow these instructions at home: Medicines Take pbjn-awf-lyqfoyf and prescription medicines only as told by your doctor. If you were given an antibiotic medicine, take it as told by your doctor. Do not stop taking the antibiotic even if you start to feel better. Activity Rest as told by your doctor. Limit the things you do as told. Ask your doctor what is safe for you to do. Do not make any sudden movements until you no longer feel dizzy. Do physical therapy as told by your doctor. General instructions Avoid loud noises and bright lights. Do not drive until your doctor says that it is safe for you. Drink enough fluid to keep your pee (urine) pale yellow. Keep all follow-up visits as told by your doctor. This is important. Contact a doctor if: Your symptoms do not get better. You do not get better after two weeks. You have a fever. Get help right away if: You are very dizzy. You keep throwing up. You keep feeling sick to your stomach. Your hearing gets much worse all of a sudden. Summary Labyrinthitis is an infection of the inner ear. This condition is often caused by a virus. Symptoms include dizziness, hearing loss, and ringing inthe ears. Treatment depends on the cause. Follow what your doctor tells you. This information is not intended to replace advice given to you by your health care provider. Make sure you discuss any questions you have with your health care provider. Document Released: 07/18/2006 Document Revised: 05/07/2019 Document Reviewed: 07/29/2018 [employer] Patient Education 2020 [employer] Follow Up Care 04/07/2022 17:00:25 With:TREY LEMA Address: [facility] [facility] [place] [address]- Business (1) When:04/10/2022 21:19:01 [facility] [place]08-29-2022 Evaluation + Plan noteExtracted from: Title:ED Note Author:Jeremy Griffin DO Date :03/29/22 Mesenteric adenitis (I88.0: Nonspecific mesenteric lymphadenitis) N&V (nausea and vomiting) (R11.2: Nausea with vomiting, unspecified) Orders: ketorolac, 15 mg = 1 mL, Injection, IV Push, Once, Stop date 03/29/22 2:35:00 EDT, STAT, Start date 03/29/22 2:35:00 EDT, 03/29/22 2:35:00 EDT naproxen, 500 mg = 1 tab(s), Oral, BID, PRN Pain, # 24 tab(s), Refills(s) 0, Pharmacy: [facility], 180.3, cm, 03/29/22 2:21:00 EDT, Height/Length Dosing, 127, kg, 03/29/22 2:21:00 EDT, Weight Dosing promethazine, 12.5 mg = 1 supp, Rectal, q8hr, PRN Nausea, # 10 EA, Refills(s) 0, Pharmacy: [facility], 180.3, cm, 03/29/22 2:21:00 EDT, Height/Length Dosing, 127, kg, 03/29/22 2:21:00 EDT, Weight Dosing promethazine, 12.5 mg = 0.5 mL, Injection, IV Push, Once, Stop date 03/29/22 2:35:00 EDT, STAT, Start date 03/29/22 2:35:00 EDT, 03/29/22 2:35:00 EDT Sodium Chloride 0.9% intravenous solution, 1,000 mL, Soln-IV, IV, Once, Stop date 03/29/22 2:35:00 EDT, STAT, Start date 03/29/22 2:35:00 EDT, Infuse over 61, minute(s) Sodium Chloride 0.9% intravenous solution, Soln-IV, Misc, Once, Stop date 03/29/22 2:40:49 EDT, Physician Stop, 03/29/22 2:40:49 EDT Automated Diff Basic Metabolic Panel CBC w/ Auto Diff CT Abdomen/Pelvis w/o Contrast eGFR Extra Blue Tube Hepatic Function Panel Lipase Level UA With Cult Reflex Future Appointments Appointment Date:04/12/2022 09:40:00 AM Scheduled Provider:Precious Garrison CNP [place] Type:[facility] New Patient [facility] [place]08-29-2022 Hospital Discharge instructions Patient Education 03/29/2022 05:00:10 Nausea and Vomiting, Adult Nausea and Vomiting, Adult Nausea is the feeling that you have an upset stomach or that you are about to vomit. Vomiting is when stomach contents are thrown up and out of the mouth as a result of nausea. Vomiting can make you feel weak and cause you to become dehydrated. Dehydration can make you feel tired and thirsty, cause you to have a dry mouth, and decrease how often you urinate. Older adults and people with other diseases or a weak disease-fighting system (immune system) are at higher risk for dehydration. It is important to treat your nausea and vomiting as told by your health care provider. Follow these instructions at home: Watch your symptoms for any changes. Tell your health care provider about them. Follow these instructions to care for yourself at home. Eating and drinking Take an oral rehydration solution (ORS). This is a drink that is sold at pharmacies and retail stores. Drink clear fluids slowly and in small amounts as you are able. Clear fluids include water, ice chips, low-calorie sports drinks, and fruit juice that has water added (diluted fruit juice). Eat bland, uepo-tk-scjblm foods in small amounts as you are able. These foods include bananas, applesauce, rice, lean meats, toast, and crackers. Avoid fluids that contain a lot of sugar or caffeine, such as energy drinks, sports drinks, and soda. Avoid alcohol. Avoid spicy or fatty foods. General instructions Take eqeh-xvs-wzyhaec and prescription medicines only as told by your health care provider. Drink enough fluid to keep your urine pale yellow. Wash your hands often using soap and water. If soap and water are not available, use hand truck operator. Make sure that all people in your household wash their hands well and often. Rest at home while you recover. Watch your condition for any changes. Breathe slowly and deeply when you feel nauseated. Keep all follow-up visits as told by your health care provider. This is important. Contact a health care provider if: Your symptoms get worse. You have new symptoms. You have a fever. You cannot drink fluids without vomiting. Your nausea does not go away after 2 days. You feel light-headed or dizzy. You have a headache. You have muscle cramps. You have a rash. You have pain while urinating. Get help right away if: You have pain in your chest, neck, arm, or jaw. You feel extremely weak or you faint. You have persistent vomiting. You have vomit that is bright red or looks like black coffee grounds. You have bloody or black stools or stools that look like tar. You have a severe headache, a stiff neck, or both. You have severe pain, cramping, or bloating in your abdomen. You have difficulty breathing, or you are breathing very quickly. Your heart is beating very quickly. Your skin feels cold and clammy. You feel confused. You have signs of dehydration, such as: ?Dark urine, very little urine, or no urine. ?Cracked lips. ?Dry mouth. ?Sunken eyes. ?Sleepiness. ?Weakness. These symptoms may represent a serious problem that is an emergency. Do not wait to see if the symptoms will go away. Get medical help right away. Call your local emergency services (911 in the [place] Do not drive yourself to the hospital. Summary Nausea is the feeling that you have an upset stomach or that you are about to vomit. As nausea getsworse, it can lead to vomiting. Vomiting can make you feel weak and cause you to become dehydrated. Follow instructions from your health care provider about eating and drinking to prevent dehydration. Take utgx-uag-jfwwlav and prescription medicines only as told by your health care provider. Contact your health care provider if your symptoms get worse, or you have new symptoms. Keep all follow-up visits as told by your health care provider. This is important. This information is not intended to replace advice given to you by your health care provider. Make sure you discuss any questions you have with your health care provider. Document Released: 07/18/2006 Document Revised: 11/09/2019 Document Reviewed: 12/26/2018 [employer] Patient Education 2020 [employer]. 03/29/2022 05:00:10 Mesenteric Adenitis, Adult Mesenteric Adenitis, Adult Mesenteric adenitis is inflammation of lymph nodes in the membrane that attaches the intestines to the inside wall of the abdomen (mesentery). Lymph nodes are collections of tissue that filter bacteria, viruses, and waste from the bloodstream. They are located in several different areas of the bodyand are part of the body's disease-fighting system (immune system). Symptoms of this condition are often similar to inflammation of the appendix (appendicitis). Mesenteric adenitis is a painful condition, but it usually clears up either without treatment or with antibiotic medicine. What are the causes? A viral or bacterial infection is the most common cause of this condition. The infection usually starts somewhere else in the body. What are the signs or symptoms? Symptoms of this condition include: Abdominal pain and tenderness. Fever. Nausea and vomiting. Diarrhea. How is this diagnosed? This condition may be diagnosed based on: A physical exam and your medical history. Blood tests. Abdominal ultrasound. Abdominal CT scan. How is this treated? If your condition is caused by a virus, it usually goes away without treatment within 1 2 weeks. Ifthe cause is a bacterial infection, you will be treated with antibiotic medicines. Your health careprovider may recommend medicines to help relieve pain or fever. Follow these instructions at home: Take dhqg-yul-dfplsjm and prescription medicines only as told by your health care provider. Do not drive or use heavy machinery while taking prescription pain medicines. If you were prescribed an antibiotic medicine, take it as told by your health care provider. Do notstop taking the antibiotic even if you start to feel better. Get plenty of rest. Drink enough fluid to keep your urine pale yellow. Follow instructions from your health care provider about eating or drinking restrictions. Keep all follow-up visits as told by your health care provider. This is important. Contact a health care provider if: You have a fever. Get help right away if: Your pain becomes severe or does not go away. You vomit repeatedly. You have severe pain in the lower, right part of your abdomen. This may be appendicitis. You have bright red or black, tarry stools. Summary Mesenteric adenitis is inflammation of lymph nodes in the membrane that attaches the intestines to the inside wall of the abdomen (mesentery). Mesenteric adenitis is a painful condition, but it usually clears up either without treatment or with antibiotic medicine. A viral or bacterial infection is the most common cause of this condition. This information is not intended to replace advice given to you by your health care provider. Make sure you discuss any questions you have with your health care provider. Document Released: 10/31/2017 Document Revised: 04/06/2019 Document Reviewed: 10/31/2017 [employer] Patient Education 2020 [employer]. Follow Up Care 03/29/2022 02:15:08 With:Bebeto GRANADO Address: [address] [place] [address] Business (1) When:04/01/2022 With:TREY LEMA Address: [address] [facility] [place] [address]- Business (1) When:Within 3 Day(s) [facility] [place]08-21-2022 Evaluation + Plan noteExtracted from: Title:ED Note Author:Jeremy Griffin DO Date :03/21/22 Dyspnea (R06.00: Dyspnea, un specified) Nausea (R11.0: Nausea) Orders: ondansetron, 4 mg = 1 tab(s), Tab-Dis, Oral, Once, Stop date 03/21/22 5:03:00 EDT, STAT, Start date 03/21/22 5:03:00 EDT, 03/21/22 5:03:00 EDT ondansetron, 4 mg = 1 tab(s), Oral, q8hr, PRN Nausea/Vomiting, # 12 tab(s), Refills(s) 0, Pharmacy: [facility], 176.5, cm, 03/21/22 3:54:00 EDT, Height/Length Dosing, 130.2, kg, 03/21/22 3:54:00 EDT, Weight Dosing Automated Diff Basic Metabolic Panel CBC w/ Auto Diff eGFR Troponin 0 Hr. XR Chest Single View [facility] [place]08-21-2022 Hospital Discharge instructions Patient Education 03/21/2022 06:40:12 Shortness of Breath, Adult Shortness of Breath, Adult Shortness of breath is when a person has trouble breathing enough air or when a person feels like she or he is having trouble breathing in enough air. Shortness of breath could be a sign of a medicalproblem. Follow these instructions at home: Pay attention to any changes in your symptoms. Do not use any products that contain nicotine or tobacco, such as cigarettes, e- cigarettes, and chewing tobacco. Do not smoke. Smoking is a common cause of shortness of breath. If you need help quitting, ask yourhealth care provider. Avoid things that can irritate your airways, such as: ?Mold. ?Dust. ?Air pollution. ?Chemical fumes. ?Things that can cause allergy symptoms (allergens), if you have allergies. Keep your living space clean and free of mold and dust. Rest as needed. Slowly return to your usual activities. Take flno-eit-lfdvkll and prescription medicines only as told by your health care provider. This includes oxygen therapy and inhaled medicines. Keep all follow-up visits as told by your health care provider. This is important. Contact a health care provider if: Your condition does not improve as soon as expected. You have a hard time doing your normal activities, even after you rest. You have new symptoms. Get help right away if: Your shortness of breath gets worse. You have shortness of breath when you are resting. You feel light-headed or you faint. You have a cough that is not controlled with medicines. You cough up blood. You have pain with breathing. You have pain in your chest, arms, shoulders, or abdomen. You have a fever. You cannot walk up stairs or exercise the way that you normally do. These symptoms may represent a serious problem that is an emergency. Do not wait to see if the symptoms will go away. Get medical help right away. Call your local emergency services (911 in the [place] Do not drive yourself to the hospital. Summary Shortness of breath is when a person has trouble breathing enough air. It can be a sign of a medical problem. Avoid things that irritate your lungs, such as smoking, pollution, mold, and dust. Pay attention to changes in your symptoms and contact your health care provider if you have a hard time completing daily activities because of shortness of breath. This information is not intended to replace advice given to you by your health care provider. Make sure you discuss any questions you have with your health care provider. Document Released: 04/12/2002 Document Revised: 12/18/2018 Document Reviewed: 12/18/2018 [employer] Patient Education 2020 [employer]. Follow Up Care 03/21/2022 03:46:27 With:TREY LEMA Address: [address] [place] [address]- Business (1) When:Within 3 Day(s) [facility] [place]07-08-2022 Hospital Discharge instructions Patient Education 02/05/2022 16:05:52 Drug Allergy Drug Allergy A drug allergy happens when the body's disease-fighting system (immune system) reacts badly to a medicine. Drug allergies range from mild to severe. Some allergic reactions occur one week or more after you are exposed to a medicine (delayed reaction). A sudden (acute), severe allergic reaction that affects multiple areas of the body is called an anaphylactic reaction (anaphylaxis). Anaphylaxis can be life-threatening. All allergic reactions to a medicine require medical evaluation, even if the allergic reaction appears to be mild. What are the causes? This condition is caused by the immune system wrongly identifying a medicine as being harmful. Whenthis happens, the body releases proteins (antibodies) and other compounds, such as histamine, into the bloodstream. This causes swelling in certain tissues and reduces blood flow to important areas, such as the heart and lungs. Almost any medicine can cause an allergic reaction. Medicines that commonly cause allergic reactions (are common allergens) include: Penicillin. Sulfa medicines (sulfonamides). Medicines that numb certain areas of the body (local anesthetics). X-ray dyes that contain iodine. What are the signs or symptoms? Common symptoms of a mild allergic reaction include: Nasal congestion. Tingling in the mouth. An itchy, red rash. Common symptoms of a severe allergic reaction include: Swelling of the eyes, lips, face, or tongue. Swelling of the back of the mouth and the throat. Wheezing. A hoarse voice. Itchy, red, swollen areas of skin (hives). Dizziness or light-headedness. Fainting. Anxiety or confusion. Abdominal pain. Difficulty breathing, speaking, or swallowing. Chest tightness. Fast or irregular heartbeats (palpitations). Vomiting. Diarrhea. How is this diagnosed? This condition is diagnosed based on a physical exam and your history of recent exposure to one or more medicines. You may be referred for follow-up testing by a health care provider who specializes in allergies. This testing can confirm the diagnosis of a drug allergy and determine which medicinesyou are allergic to. Testing may include: Skin tests. These may involve: ?Injecting a small amount of the possible allergen between layers of your skin (intradermal injection). ?Applying patches to your skin. Blood tests. Drug challenge. For this test, a health care provider gives you a small amount of a medicine in gradual doses while watching for an allergic reaction. If you are unsure of what caused your allergic reaction, your health care provider may ask you for: Information about all medicines that you take on a regular basis. The date and time of your reaction. How is this treated? There is no cure for allergies. However, an allergic reaction can be treated with: Medicines that help: ?Reduce pain and swelling (NSAIDs). ?Relieve itching and hives (antihistamines). ?Reduce swelling (corticosteroids). Respiratory inhalers. These are inhaled medicines that help open (dilate) the airways in your lungs. Injections of medicine that helps to relax the muscles in your airways and tighten your blood vessels (epinephrine). Severe allergic reactions, such as anaphylaxis, require immediate treatment in a hospital. You may need to be hospitalized for observation. You may also be prescribed rescue medicines, such as epinephrine. Epinephrine comes in many forms, including what is commonly called an auto-injector pen (pre-filled automatic epinephrine injection device). Follow these instructions at home: If you have a severe allergy Always keep an auto-injector pen or your anaphylaxis kit near you. These can be lifesaving if you have a severe reaction. Use your auto-injector pen or anaphylaxis kit as told by your health care provider. Make sure that you, the members of your household, and your employer know: ?How to use an anaphylaxis kit. ?How to use an auto-injector pen to give you an epinephrine injection. Replace your epinephrine immediately after you use your auto-injector pen, in case you have anotherreaction. Wear a medical alert bracelet or necklace that states your drug allergy, if told by your health care provider. General instructions Avoid medicines that you are allergic to. Take sfkb-nmj-zheridt and prescription medicines only as told by your health care provider. If you were given medicines to treat your reaction, do not drive until your health care provider approves. If you have hives or a rash: ?Use an qogx-jcl-xesiyya antihistamine as told by your health care provider. ?Apply cold, wet cloths (cold compresses) to your skin or take baths or showers in cool water. Avoid hot water. If you had tests done, it is up to you to get your test results. Ask your health care provider whenyour results will be ready. Tell any health care providers who care for you that you have a drug allergy. Keep all follow-up visits as told by your health care provider. This is important. Contact a health care provider if: You think that you are having a mild allergic reaction. Symptoms of an allergic reaction usually start within 30 minutes after you are exposed to a medicine. You have symptoms that last more than 2 days after your reaction. Your symptoms get worse. You develop new symptoms. Get help right away if: You needed to use epinephrine. ?An epinephrine injection helps to manage life-threatening allergic reactions, but you still need to go to the emergency room even if epinephrine seems to work. This is important because anaphylaxis may happen again within 72 hours (rebound anaphylaxis). ?If you used epinephrine to treat anaphylaxis outside of the hospital, you need additional medical care. This may include more doses of epinephrine. You develop symptoms of a severe allergic reaction. These symptoms may represent a serious problem that is an emergency. Do not wait to see if the symptoms will go away. Use your auto-injector pen or anaphylaxis kit as you have been instructed, and get medical help right away. Call your local emergency services (911 in the [place] Do not drive yourself to the hospital. Summary A drug allergy happens when the body's disease-fighting system reacts badly to a medicine. Drug allergies range from mild to severe. In some cases, an allergic reaction may be life-threatening. If you have a severe allergy, always keep an auto-injector pen or your anaphylaxis kit near you. This information is not intended to replace advice given to you by your health care provider. Make sure you discuss any questions you have with your health care provider. Document Released: 07/18/2006 Document Revised: 01/31/2019 Document Reviewed: 01/31/2019 [employer] Patient Education 2020 [employer] 02/05/2022 16:05:31 Impetigo, Adult Impetigo, Adult Impetigo is an infection of the skin. It commonly occurs in young children, but it can also occur in adults. The infection causes itchy blisters and sores that produce brownish-yellow fluid. As the fluid dries, it forms a thick, honey- colored crust. These skin changes usually occur on the face, butthey can also affect other areas of the body. Impetigo usually goes away in 7 10 days with treatment. What are the causes? This condition is caused by two types of bacteria. It may be caused by staphylococci or streptococci bacteria. These bacteria cause impetigo when they get under the surface of the skin. This often happens after some damage to the skin, such as: Cuts, scrapes, or scratches. Rashes. Insect bites, especially when you scratch the area of a bite. Chickenpox or other illnesses that cause open skin sores. Nail biting or chewing. Impetigo can spread easily from one person to another (is contagious). It may be spread through close skin contact or by sharing towels, clothing, or other items that an infected person has touched. What increases the risk? The following factors may make you more likely to develop this condition: Playing sports that include [id number] contact with others. Having a skin condition with open sores, such as chickenpox. Having diabetes. Having a weak body defense system (immune system). Having many skin cuts or scrapes. Living in an area that has high humidity levels. Having poor hygiene. Having high levels of staphylococci in your nose. What are the signs or symptoms? The main symptom of this condition is small blisters, often on the face around the mouth and nose. In time, the blisters break open and turn into tiny sores (lesions) with a yellow crust. In some cases, the blisters cause itching or burning. With scratching, irritation, or lack of treatment, these small lesions may get larger. Other possible symptoms include: Larger blisters. Pus. Swollen lymph glands. Scratching the affected area can cause impetigo to spread to other parts of the body. The bacteria can get under the fingernails and spread when you touch another area of your skin. How is this diagnosed? This condition is usually diagnosed during a physical exam. A skin sample or a sample of fluid froma blister may be taken for lab tests that involve growing bacteria (culture test). Lab tests can help to confirm the diagnosis or help to determine the best treatment. How is this treated? Treatment for this condition depends on the severity of the condition: Mild impetigo can be treated with prescription antibiotic cream. Oral antibiotic medicine may be used in more severe cases. Medicines that reduce itchiness (antihistamines)may also be used. Follow these instructions at home: Medicines Take hzpz-yfg-yptepen and prescription medicines only as told by your health care provider. Apply or take your antibiotic as told by your health care provider. Do not stop using the antibiotic even if your condition improves. General instructions To help prevent impetigo from spreading to other body areas: ?Keep your fingernails short and clean. ?Do not scratch the blisters or sores. ?Cover infected areas, if necessary, to keep from scratching. ?Wash your hands often with soap and warm water. Before applying antibiotic cream or ointment, you should: ?Gently wash the infected areas with antibacterial soap and warm water. ?Soak crusted areas in warm, soapy water using antibacterial soap. ?Gently rub the areas to remove crusts. Do not scrub. Do not share towels. Wash your clothing and bedsheets in warm water that is 140 F (60 C) or warmer. Stay home until you have used an antibiotic cream for 48 hours (2 days) or an oral antibiotic medicine for 24 hours (1 day). You should only return to work and activities with other people if your skin shows significant improvement. ?You may return to contact sports after you have used antibiotic medicine for 72 hours (3 days). Keep all follow-up visits as told by your health care provider. This is important. How is this prevented? Wash your hands often with soap and warm water. Do not share towels, washcloths, clothing, bedding, or razors. Keep your fingernails short. Keep any cuts, scrapes, bug bites, or rashes clean and covered. Use insect repellent to prevent bug bites. Contact a health care provider if: You develop more blisters or sores even with treatment. Other family members get sores. Your skin sores are not improving after 72 hours (3 days) of treatment. You have a fever. Get help right away if: You see spreading redness or swelling of the skin around your sores. You see red streaks coming from your sores. You develop a sore throat. The area around your rash becomes warm, red, or tender to the touch. You have dark, reddish-brown urine. You do not urinate often or you urinate small amounts. You are very tired (lethargic). You have swelling in the face, hands, or feet. Summary Impetigo is a skin infection that causes itchy blisters and sores that produce brownish-yellow fluid. As the fluid dries, it forms a crust. This condition is caused by staphylococci or streptococci bacteria. These bacteria cause impetigo when they get under the surface of the skin, such as through cuts, rashes, bug bites, or open sores. Treatment for this condition may include antibiotic ointment or oral antibiotics. To help prevent impetigo from spreading to other body areas, make sure you keep your fingernails short, avoid scratching, cover any blisters, and wash your hands often. If you have impetigo, stay home until you have used an antibiotic cream for 48 hours (2 days) or anoral antibiotic medicine for 24 hours (1 day). You should only return to work and activities with other people if your skin shows significant improvement. This information is not intended to replace advice given to you by your health care provider. Make sure you discuss any questions you have with your health care provider. Document Released: 08/08/2015 Document Revised: 08/28/2019 Document Reviewed: 08/09/2017 [employer] Patient Education 2020 [employer] 02/05/2022 16:05:24 BMI for Adults BMI for Adults Body mass index (BMI) is a number that is calculated from a person's weight and height. BMI may help to estimate how much of a person's weight is composed of fat. BMI can help identify those who may be at higher risk for certain medical problems. How is BMI used with adults? BMI is used as a screening tool to identify possible weight problems. It is used to check whether aperson is obese, overweight, healthy weight, or underweight. How is BMI calculated? BMI measures your weight and compares it to your height. This can be done either in [place] ([place] or metric measurements. Note that charts are available to help you find your BMI quickly and easily without having to do these calculations yourself. To calculate your BMI in [place] ([place] measurements, your health care provider will: 1.Measure your weight in pounds (lb). 2.Multiply the number of pounds by 703. For example, for a person who weighs 180 lb, multiply that number by 703, which equals 126,540. 3.Measure your height in inches (in). Then multiply that number by itself to get a measurement called inches squared. For example, for a person who is 70 in tall, the inches squared measurement is 70 in x 70 in, which equals 4900 inches squared. 4.Divide the total from Step 2 (number of lb x 703) by the total from Step 3 (inches squared): 126,540 4900 = 25.8. This is your BMI. To calculate your BMI in metric measurements, your health care provider will: 1.Measure your weight in kilograms (kg). 2.Measure your height in meters (m). Then multiply that number by itself to get a measurement called meters squared. For example, for a person who is 1.75 m tall, the meters squared measurement is 1.75 m x 1.75 m, which is equal to 3.1 meters squared. 3.Divide the number of kilograms (your weight) by the meters squared number. In this example: 70 3.1 = 22.6. This is your BMI. How is BMI interpreted? To interpret your results, your health care provider will use BMI charts to identify whether you are underweight, normal weight, overweight, or obese. The following guidelines will be used: Underweight: BMI less than 18.5. Normal weight: BMI between 18.5 and 24.9. Overweight: BMI between 25 and 29.9. Obese: BMI of 30 and above. Please note: Weight includes both fat and muscle, so someone with a muscular build, such as an athlete, may havea BMI that is higher than 24.9. In cases like these, BMI is not an accurate measure of body fat. To determine if excess body fat is the cause of a BMI of 25 or higher, further assessments may needto be done by a health care provider. BMI is usually interpreted in the same way for men and women. Why is BMI a useful tool? BMI is useful in two ways: Identifying a weight problem that may be related to a medical condition, or that may increase the risk for medical problems. Promoting lifestyle and diet changes in order to reach a healthy weight. Summary Body mass index (BMI) is a number that is calculated from a person's weight and height. BMI may help to estimate how much of a person's weight is composed of fat. BMI can help identify those who may be at higher risk for certain medical problems. BMI can be measured using Thai measurements or metric measurements. To interpret your results, your health care provider will use BMI charts to identify whether you are underweight, normal weight, overweight, or obese. This information is not intended to replace advice given to you by your health care provider. Make sure you discuss any questions you have with your health care provider. Document Released: 03/29/2005 Document Revised: 06/30/2018 Document Reviewed: 05/31/2018 [employer] Patient Education 2020 [employer] Follow Up Care 02/05/2022 14:25:02 With:TREY LEMA DO Address: [facility] [place] [address]- When: Unknown [facility] Evaluation + Plan note No data available for this section [facility] Evaluation + Plan note Future Appointments Appointment Date:04/12/2022 09:40:00 AM Scheduled Provider:Precious Garrison CNP [place] App[facility] Type:[facility] Future Appointments Appointment Date:04/21/2022 03:10:00 PM Scheduled Provider: Location:[facility] Appointment Type:Surgery FT [facility] Evaluation + Plan note Future Appointments Appointment Date:11/10/2022 09:00:00 AM Scheduled Provider:Bebeto GRANADO MD Location[place] App[facility]ment Type:[facility] Follow Up Future Scheduled Tests Laboratory* Calprotectin, Fecal 04/28/22 * Calprotectin, Fecal 05/13/22 * Sedimentation Rate Automated 04/28/22 * C-Reactive Protein 04/28/22 [facility] Evaluation + Plan note Future Appointments Appointment Date:11/10/2022 09:00:00 AM Scheduled Provider:Bebeto GRANADO MD Location:[facility] App[facility]ment Type:[facility] Follow Up Diagnostic Tests Pending * Calprotectin, Fecal 11/09/22 Future Scheduled Tests Laboratory* Calprotectin, Fecal 04/28/22 * Sedimentation Rate Automated 04/28/22 * C-Reactive Protein 04/28/22 [facility] No data available for this section [facility] Progress note No data available for this section [facility] Summary Purpose Family History No Family History Records FoundNo Family History Records Found Advance Directives No Advanced Directives Records FoundNo Advanced Directives Records Found Additional Source Comments Care Team (unrecognized sect ion and content) Personnel Name: TREY LEMA DO Address: [address] [place] [address] Personnel Name: TREY LEMA DO Address: [address] [place] [address] Personnel Name: TREY LEMA DO Address: [address] [place] [address] Personnel Name: TREY LEMA DO Address: [address] [place] [address] Personnel Name: TREY LEMA DO Address: [address] [place] [address] Personnel Name: TREY LEMA DO Address: [address] [place] [address] Personnel Name: TREY LEMA DO Address: Address: [address] [place] [address] Personnel Name: TREY LEMA DO Address: Address: [address] [place] [address] Personnel Name: TREY LEMA DO Address: Address: [address] [place] [address] Personnel Name: TREY LEMA DO Address: Address: [address] [place] [address] Personnel Name: TREY LEMA DO Address: Address: [address] [place] [address] Personnel Name: TREY LEMA DO Address: Address: [address] [place] [address] (unrecognized sect ion and content) No Status Records FoundNo Status Records Found INFORMATION SOURCE (unrecogn ized section and content) DATE CREATED AUTHOR 05/10/2023 [facility] DATE CREATED AUTHOR AUTHOR'Rg GARCIA 07/24/2023 [facility] FOR RECORDS PERTAINING TO PATIENTS WHO ARE OR HAVE BEEN ENROLLED IN A CHEMICAL DEPENDENCY/SUBSTANCEABUSE PROGRAM, SOME INFORMATION MAY BE OMITTED. This clinical summary was aggregated from multiple sources. Caution should be exercised in using it in the provision of clinical care. This summary normalizes information from multiple sources, and as a consequence, information in this document may materially change the coding, format and clinical context of patient data. In addition, data may be omitted in some cases. CLINICAL DECISIONS SHOULD BE BASED ON THE PRIMARY CLINICAL RECORDS. [facility] [employer] provides no warranty or guarantee of the accuracy or completeness of information in this document.
[2023-10-15 22:38] VITALS: BP 112/97; PULSE 95; RESP 18; TEMP 36.5; O2SAT 98; BMI 38.4
--- NOTE | 2023-10-15 22:49 | US_ITS ---
[address] [address] Patient Name: CORBY LAW MRN: [id number] date: 2000 Sex: M Assigned Patient Location: ER Current Patient Location: ER Accession/Order Number: [id number] Exam Date: 10/15/2023 23:33 Report Date: 10/16/2023 00:25 At the request of: KAILA PITTS Procedure: US scrotum doppler EXAM: US scrotum doppler HISTORY: TESTICULAR/SCROTAL PAIN COMPARISON: None. TECHNIQUE: Kidd-scale and color Doppler images as well as spectral analysis of the bilateral testes were obtained in the axial and longitudinal planes using real time ultrasound. FINDINGS: Right: The testicle is normal in size, shape, and echotexture. The testis measures 4.0 x 2.0 x 3.3 cm with normal Doppler flow. No testicular masses are present. There is a 2 mm right epididymal head cyst. There is no hydrocele. Left: The testicle is normal in size, shape, and echotexture. The testis measures 4.2 x 2.2 x 2.8 cm with normal Doppler flow. No testicular masses are present. There is a 0.3 x 0.4 x 0.3 cm left epididymal cyst. There is no hydrocele. US/US scrotum doppler IMPRESSION: 1. Aside from small epididymal cysts, unremarkable scrotal ultrasound examination. Electronically authenticated by: Nanette KAUFMAN Date: 10/16/2023 00:25
[2023-10-15] MEDS: IBUPROFEN 400 MG TABLET 800 MG PO (23:18)
--- NOTE | 2023-10-15 23:58 | ED_ITS ---
HPI - Male Genitourinary General Chief complaint: Urogenital-Male Stated complaint: TESTICLE PAIN Time Seen by Provider: 10/15/23 22:18 Source: patient and family Mode of arrival: walk-in Limitations: no limitations History of Present Illness HPI Narrative: Patient has been experiencing intermittent pain in the left scrotum/left testicle for about 4 days. Tonight the pain was much worse. He took a single ibuprofen tab earlier tonight before deciding to come to the ED for evaluation. He denied any pain with urination, urethral discharge or problems passing urine. He does not ride a bicycle or motorcycle and denied riding a horse or other activities that might have caused scrotal or testicular injury or pressure. However on questioning he admitted that he has a small dog that often jumps up into his lap. Related Data Home Medications Medication Instructions Recorded Confirmed No Known Home Medications 05/22/23 10/15/23 Allergies Allergy/AdvReac Type Severity Reaction Status Date / Time clindamycin Allergy Unknown Verified 10/15/23 22:45 ventolin Allergy Unknown Uncoded 10/15/23 22:45 PFSH PFSH Social History Smoking status: Current every day smoker Exam Narrative Exam Narrative: Nurses notes and vital signs reviewed and patient is not hypoxic. Afebrile General: Well-appearing and in no apparent distress. Skin: Warm, dry, no pallor noted. No rash. Cardiovascular: Regular Rate and Rhythm without murmur, gallop or rub. Respiratory: No accessory muscle use or respiratory distress. Lungs are clear to auscultation, no wheezing, rales or rhonchi Genital: Normal male external genitalia without urethral discharge. No scrotal or testicular swelling noted. No ulcers or other scrotal lesions. No inguinal lymphadenopathy. No increase in pain with manipulation of either testicle. Negative Prehn's sign. Neurological: A&O x4. Moves all extremities. Sensation intact. Psychiatric: Cooperative and interactive. Normal mood and affect. Constitutional Vital Signs, click to edit/add: Last Vital Signs Temp 97.7 F 10/15/23 22:38 Pulse 95 H 10/15/23 22:38 Resp 18 10/15/23 22:38 BP 112/97 H 10/15/23 22:38 Pulse Ox 98 10/15/23 22:38 O2 Del Method Room Air 10/15/23 22:38 Course Vital Signs Vital signs: Vital Signs Temperature 97.7 F 10/15/23 22:38 Pulse Rate 95 H 10/15/23 22:38 Respiratory Rate 18 10/15/23 22:38 Blood Pressure 112/97 H 10/15/23 22:38 Pulse Oximetry 98 10/15/23 22:38 Oxygen Delivery Method Room Air 10/15/23 22:38 Temperature 97.7 F 10/15/23 22:38 Pulse Rate 95 H 10/15/23 22:38 Respiratory Rate 18 10/15/23 22:38 Blood Pressure 112/97 H 10/15/23 22:38 Pulse Oximetry 98 10/15/23 22:38 Oxygen Delivery Method Room Air 10/15/23 22:38 MDM - Male Genitourinary MDM Narrative Medical decision making narrative: Patient has left testicular pain. He localizes to the lateral aspect of the left testicle but it is no worse with testicular manipulation. I do not see any scrotal swelling, erythema and I do not palpate any scrotal or testicular mass. Aside from him localizing the area of pain, his exam is unremarkable. mechanical sound technician was called in from home in order to obtain scrotal ultrasound and evaluate flow to rule out torsion and identify any other potential pathology that may be causing him pain. scrotal US unremarkable. He has small epididymalcysts, normal flow, no hydrocele, no testicular masses. Patient informed of results and given reassurance. Discussed wearing briefs for support, taking motrin for pain, avoiding his dog jumping onto his lap. Imaging Data us scrotum: Radiologist's impression: ITS Impressions Scrotum Ultrasound 10/15/23 22:49 IMPRESSION: 1. Aside from small epididymal cysts, unremarkable scrotal ultrasound examination. Electronically authenticated by: Nanette KAUFMAN Date: 10/16/2023 00:25 Discharge Plan Discharge Stand Alone Forms: Portal Instructions Chief Complaint: Urogenital-Male Clinical Impression: Left testicular pain Patient Disposition: Home, Self-Care Time of Disposition Decision: 00:31 Prescriptions / Home Meds: No Action No Known Home Medications Instructions: Testicle Pain (ED) Referrals: Randy Maurer DO [Primary Care Provider] - 1 week Ede Ho MD [Physician] - As needed
[2023-10-16 00:58] VITALS: BP 127/87; PULSE 97; RESP 18; O2SAT 99
== END 2023-10-16 00:59 | disposition home or self-care (01) ==
PROVIDERS: Emergency Provider Emergency Medicine; PCP Internal Medicine
DX: N50.812 Left testicular pain (principal); F17.210 Nicotine dependence, cigarettes, uncomplicated
CPT/HCPCS: 76870; 93976; 99284

== ENCOUNTER 2024-10-26 17:22 | Emergency (ER) | payer OTHER, SELFPAY ==
[2024-10-26 17:27] VITALS: BP 151/94; PULSE 82; TEMP 36.6; O2SAT 97; BMI 38.4
--- OUTSIDE RECORDS SUMMARY | 2024-10-26 17:33 | XMS_ITS | CCD ---
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 Name Role Phone RANDY MAURER Primary Care Physician MEAGHAN IVY Attending Unavailable RANDY MAURER Attending Unavailable RANDY MAURER Admitting Unavailable DO Hannah Jarrett Attending Unavailable Osbaldo Brenner Attending Unavailable Hannah Jarrett Attending Unavailable Allergies Allergy Classification Reported Allergen(s) Allergy Type Date of Onset Reaction(s) Facility (20 sources) Albuterol; Translations: [albuterol] Drug Allergy 4 Unknown, Rash [facility] (20 sources) Clindamycin; Translations: [clindamycin topical] Drug Allergy 2 Swelling (morphologic abnormality), Eruption of skin (disorder) [facility] Comment on above: applied to pimple on lip and had localized swelling of lip (1 source) Clindamycin; Translations: [Clindagel] Drug Allergy 2 [facility] Repository Medications Current Medications Medication Drug Class(es) Dates Sig (Normalized) Sig (Original) amoxicillin 875 mg / clavulanate 125 mg oral tablet (1 source) Penicillin-class Antibacterial Start: 11-30-2023 take 1 tablet by mouth twice daily Amoxicillin-Pot Clavulanate Active 1 TAB PO Twice daily 14 November 30, 2023 12:00am budesonide 3 mg delayed release oral capsule (5 sources) Corticosteroid Start: 05-13-2022 take 3 capsules by mouth once daily in the morning budesonide 3 mg oral delayed release capsule 9 mg = 3 cap(s), Oral, qAM, # 90 cap(s), Refills(s) 0, Pharmacy: [facility], 180, cm, 05/13/22 13:52:00 EDT, Height/Length Dosing, 124, kg, 05/13/22 13:52:00 EDT, Weight Dosing Start Date: 05/13/22 Status: Ordered dicyclomine hydrochloride 20 mg oral tablet (13 sources) Anticholinergic Start: 03-23-2022 End: 03-30-2022 take 1 tablet by mouth three times daily dicyclomine 20 mg Tab 20 mg = 1 tab(s), Oral, TID, X 7 day(s), # 21 tab(s), Refills(s) 0, Pharmacy: [facility], 180, cm, 03/23/22 6:35:00 EDT, Height/Length Dosing, 127.1, kg, 03/23/22 6:35:00 EDT, Weight Dosing Start Date: 03/23/22 Stop Date: 03/30/22 Status: Ordered Start: 12-04-2019 End: 11-24-2023 take 20 mg by mouth four times daily Dicyclomine Discontinued 20 MG PO Four times daily December 04, 2019 12:00am November 24, 2023 8:53am escitalopram 10 mg oral tablet (1 source) Serotonin Reuptake Inhibitor Start: 12-02-2023 take 10 mg by mouth once daily Escitalopram Oxalate Active 10 MG PO daily December 02, 2023 12:00am famotidine 40 mg oral tablet (4 sources) Histamine-2 Receptor Antagonist Start: 04-09-2022 take 1 tablet by mouth once daily at bedtime Pepcid 40 mg Tab 40 mg = 1 tab(s), Oral, Once a day (at bedtime), Refills(s) 0, Control of stomach acid Start Date: 04/09/22 Status: Ordered Start: 12-04-2019 End: 11-24-2023 take 20 mg by mouth once daily Famotidine Discontinued 20 MG PO Daily December 04, 2019 12:00am November 24, 2023 8:53am hydrocortisone 5 mg/ml topical cream (1 source) Corticosteroid Start: 01-16-2023 End: 01-21-2023 hydrocortisone Top 0.5% Crm 1 larisa, Topical, BID for 5 day(s), 14 gm, Refill(s) 0, [facility], 180, cm, 01/16/23 [...] dizziness, # 30 tab(s), Refills(s) 0, Pharmacy: [facility], 180, cm, 04/07/22 17:06:00 EDT, Height/Length Dosing, 127, kg, 04/07/22 17:06:00 EDT, Weight Dosing Start Date: 04/07/22 Status: Ordered mupirocin 0.02 mg/mg topical ointment (1 source) RNA Synthetase Inhibitor Antibacterial Start: 02-05-2022 End: 02-12-2022 mupirocin Top 2% Oint 1 larisa, Topical, TID for 7 day(s), 22 gm, Refill(s) 0, [id number], 176.5, cm, 02/05/22 15:44:00 EDT, Height/Length Dosing, [...] Pain, # 24 tab(s), Refills(s) 0, Pharmacy: [facility], 180.3, cm, 03/29/22 2:21:00 EDT, Height/Length Dosing, 127, kg, 03/29/22 2:21:00 EDT, Weight Dosing Start Date: 03/29/22 Status: Ordered nystatin [id number] unt/ml oral suspension (2 sources) Polyene Antifungal Start: 11-06-2023 nystatin 100,000 units/mL Oral Susp 500,000 unit(s) = 5 mL, Oral, q6hr, swish and swallow QID x7-10 days. Leave in the mouth as long as possible, # 200 mL, Refills(s) 0, Pharmacy: [facility], 180, cm, 11/06/23 12:08:00 EDT, Height/Length Dosing, 130, kg, 11/06/23 12:08:00 EDT, Weight Dosing Start Date: 11/06/23 Status: Ordered omeprazole 40 mg delayed release oral capsule (15 sources) Proton Pump Inhibitor Start: 04-09-2022 take 1 capsule by mouth once daily omeprazole 40 mg Cap-DR 40 mg = 1 cap(s), Oral, Daily, # 90 cap(s), Refills(s) 0, Pharmacy: [facility], 180, cm, 04/21/22 10:10:00 EDT, Height/Length Dosing, 126.6, kg, 04/21/22 10:10:00 EDT, Weight Dosing Start Date: 05/03/22 Status: Ordered Start: 03-23-2022 End: 03-30-2022 take 1 capsule by mouth once daily omeprazole 40 mg Cap-DR 40 mg = 1 cap(s), Oral, Daily, X 7 day(s), # 7 cap(s), Refills(s) 0, Pharmacy: [facility], 180, cm, 03/23/22 6:35:00 EDT, Height/Length Dosing, 127.1, kg, 03/23/22 6:35:00 EDT, Weight Dosing Start Date: 03/23/22 Stop Date: 03/30/22 Status: Ordered ondansetron 4 mg disintegrating oral tablet (13 sources) Serotonin-3 Receptor Antagonist Start: 05-31-2024 take 1 tablet by mouth every six hours ondansetron 4 mg Dis Tab 4 mg = 1 tab(s), Oral, q6hr, # 12 tab(s), Refills(s) 0, Pharmacy: [facility], 180, cm, 05/30/24 21:46:00 EDT, Height/Length Dosing, 131, kg, 05/30/24 21:46:00 EDT, Weight Dosing Start Date: 05/31/24 Status: Ordered Start: 11-25-2020 take 1 tablet by rashard th four times daily as needed for nausea Zofran ODT 4 mg Tab 4 mg = 1 tab(s), Oral, QID, PRN Nausea/Vomiting, # 8 tab(s), Refills(s) 0 Start Date: 11/25/20 Status: Ordered polyethylene glycol 3350 [id number] mg / potassium chloride 1480 mg / sodium bicarbonate 5720 mg / sodium chloride 78931 mg powder for oral solution (1 source) Osmotic Laxative Start: 04-12-2022 NuLYTELY [place] oral powder for reconstitution See Instructions, 1 EA, Refill(s) 0, Prior to colonoscopy., [facility], 180, cm, 04/12/22 9:35:00 EDT, Height/Length Dosing, 126.6, kg, 04/12/22 9:35:00 EDT, Weight Dosing Start Date: 04/12/22 Status: Ordered predniSONE 20 mg oral tablet (12 sources) Start: 01-20-2021 take 3 tablets by mouth once daily predniSONE 20 mg Tab 3, Oral, Daily, # 15 tab(s), Refills(s) 0, Pharmacy: [facility] #[id number], 180, cm, 01/20/21 12:36:00 EDT, Height/Length Dosing, 126.3, kg, 01/20/21 12:36:00 EDT, Weight Dosing Start Date: 01/20/21 Status: Ordered promethazine hydrochloride 12.5 mg rectal suppository (20 sources) Phenothiazine Start: 03-29-2022 take 12.5 mg rectal route every eight hours as needed for nausea Phenergan 12.5 mg Supp 12.5 mg = 1 supp, Rectal, q8hr, PRN Nausea, # 10 EA, Refills(s) 0, Pharmacy: [facility], 180.3, cm, 03/29/22 2:21:00 EDT, Height/Length Dosing, 127, kg, 03/29/22 2:21:00 EDT, Weight Dosing Start Date: 03/29/22 Status: Ordered Start: 03-23-2022 take 1 tablet by rashard three times daily promethazine 25 mg Tab 25 mg = 1 tab(s), Oral, TID, # 15 tab(s), Refills(s) 0, Pharmacy: [facility], 180, cm, 03/23/22 6:35:00 EDT, Height/Length Dosing, 127.1, kg, 03/23/22 6:35:00 EDT, Weight Dosing Start Date: 03/23/22 Status: Ordered Start: 01-20-2021 take 5 mL by mouth e very six hours for cough Promethazine DM oral syrup 5 mL, Oral, q6hr for cough, 120 mL, Refill(s) 0, [facility] #[id number], 180, cm, 01/20/21 12:36:00 EDT, Height/Length Dosing, 126.3, kg, 01/20/21 12:36:00 EDT, Weight Dosing Start Date: 01/20/21 Status: Ordered Zofran ODT 4 mg Tab-Dis (12 sources) Start: 03-29-2023 take 1 tablet by mouth every eight hours as needed for nausea Zofran ODT 4 mg Tab-Dis 4 mg = 1 tab(s), Oral, q8hr, PRN Nausea/Vomiting, # 16 tab(s), Refills(s) 0, Pharmacy: [facility], 180, cm, 03/29/23 2:12:00 EDT, Height/Length Dosing, 126.5, kg, 03/29/23 2:12:00 EDT, Weight Dosing Start Date: 03/29/23 Status: Ordered Start: 03-21-2022 take 1 tablet by rashard th every eight hours as needed for nausea Zofran ODT 4 mg Tab-Dis 4 mg = 1 tab(s), Oral, q8hr, PRN Nausea/Vomiting, # 12 tab(s), Refills(s) 0, Pharmacy: [facility], 176.5, cm, 03/21/22 3:54:00 EDT, Height/Length Dosing, 130.2, kg, 03/21/22 3:54:00 EDT, Weight Dosing Start Date: 03/21/22 Status: Ordered Completed/Discontinued Medications Medication Drug Class(es) Dates Sig (Normalized) Sig (Original) fluconazole 100 mg oral tablet (2 sources) Azole Antifungal Start: 11-24-2023 End: 12-02-2023 take 1 tablet by mouth once daily Fluconazole (Diflucan) 100 mg tablet Discontinued 100 MG PO Daily 7 November 24, 2023 12:00am December 02, 2023 11:06am Problems Problem Classification Problem Date Documented Date Episodic/Chronic Abdominal pain (20 sources) Generalized abdominal pain; Translations: [Generalized abdominal pain] Onset: 04-12-2022 Episodic Anxiety disorders (2 sources) Generalized anxiety disorder; Translations: [Generalized anxiety disorder] 12-01-2023 Chronic Asthma (15 sources) Asthma 08-19-2014 Chronic Conditions associated with dizziness or vertigo (1 source) Labyrinthitis; Translations: [Labyrinthitis, unspecified ear] Onset: 04-07-2022 Episodic Lymphadenitis (1 source) Nonspecific mesenteric adenitis; Translations: [Nonspecific mesenteric lymphadenitis] Onset: 03-29-2022 Episodic Mycoses (3 sources) Candidiasis of mouth; Translations: [Candidal stomatitis] Onset: 11-06-2023 Episodic Nausea and vomiting (16 sources) Nausea; Translations: [Nausea] Onset: 03-21-2022 Episodic Noninfectious gastroenteritis (10 sources) Noninfectious enteritis; Translations: [Noninfective gastroenteritis and [...] Translations: [Acute pharyngitis, unspecified] Onset: 03-29-2023 Episodic Otitis media and related conditions (3 sources) Otitis media 05-07-2023 Episodic Skin and subcutaneous tissue infections (1 source) Impetigo; Translations: [Impetigo, unspecified] Onset: 02-05-2022 Episodic Substance-related disorders (7 sources) Smoker 11-06-2022 Chronic Comment on above: Added secondary to d ocumentation in Social History. Viral infection (2 sources) Infectious mononucleosis; Translations: [Infectious mononucleosis, unspecified without complication] Onset: 04-07-2022 Episodic Results Test Name Value Interpretation Reference Range Facility ED Clinical Summaryon 2023 ED Clinical Summary ED Clinical Summary [place] [id number] ED Clinical Summary Person Information Name: CORBY LAW [facility] Age: 23 Years : 2000 Sex: Male Language: Vietnamese PCP: RANDY MAURER DO Marital Status: Single Phone: [phone] MRN: [id number] Visit Id: Visit Reason: Respiratory problem; Vomiting; Nausea; NAUSEA VOMITING, CHEST PAIN Speciality: Acuity: 3 Enc Type: Emergency Med Service: Emergency Arrival: 05/30/2024 21:38:55 Discharge: 05/31/2024 00:15:12 LOS: 000 02:37 Checkin: 05/30/2024 21:38:55 Checkout: 05/31/2024 00:15:12 Dispo Type: Home (Routine DC) EVENTS: Event Name Event Status Request Date/Time Start Date/Time Complete Date/Time Arrive Complete 05/30/2024 21:38:55 05/30/2024 21:38:55 05/30/2024 21:38:55 Document Home Meds Request 05/30/2024 21:38:55 Triage Complete 05/30/2024 21:38:55 05/30/2024 21:46:08 05/30/2024 21:46:08 No Visitors Request 05/30/2024 21:40:49 Registration Complete 05/30/2024 21:45:19 05/30/2024 21:45:19 05/30/2024 21:45:19 Reg Complete Request 05/30/2024 21:45:19 Reg Bed Request Complete 05/30/2024 21:45:19 05/30/2024 21:45:19 05/30/2024 21:45:19 Bed Assign Complete 05/30/2024 22:06:25 05/30/2024 22:06:25 05/30/2024 22:06:25 Dr Exam Complete 05/30/2024 22:06:25 05/30/2024 22:14:36 05/30/2024 22:14:36 RN Exam Complete 05/30/2024 22:06:25 05/30/2024 22:09:17 05/30/2024 22:09:17 Registration Request 05/30/2024 22:14:36 Dr Exam Complete 05/30/2024 22:16:07 05/30/2024 22:16:07 05/30/2024 22:16:07 Pending Labs Complete 05/30/2024 22:55:48 05/30/2024 23:59:16 Lab Complete 05/30/2024 22:55:48 05/30/2024 23:59:16 Pending Labs Complete 05/30/2024 22:56:14 05/30/2024 23:49:59 Lab Complete 05/30/2024 22:56:14 05/30/2024 23:49:59 X-Ray Complete 05/30/2024 22:56:14 05/30/2024 23:06:26 Meds Admin Complete 05/30/2024 22:56:31 05/30/2024 23:04:52 Wet Read Request 05/30/2024 23:06:26 Pending Labs Inlab 05/30/2024 23:18:43 05/30/2024 23:18:43 Pending Labs Complete 05/30/2024 23:33:41 05/30/2024 23:33:41 05/30/2024 23:59:16 Lab Complete 05/30/2024 23:33:41 05/30/2024 23:33:41 05/30/2024 23:59:16 Meds Admin Complete 05/31/2024 00:03:35 05/31/2024 00:14:23 Discharge Complete 05/31/2024 00:04:41 05/31/2024 00:15:21 05/31/2024 00:15:21 Transfer Complete 05/31/2024 00:15:21 05/31/2024 00:15:21 05/31/2024 00:15:21 ADDRESS: [address] [place] [id number] PHYS DOC NOTES: MEDICAL INFORMATION: Prescriptions Given: New Medications [facility], [address] [place] [id number], [phone] ondansetron (ondansetron 4 mg Dis Tab) 1 Tablets By Mouth every 6 hours. Refills: 0. PATIENT EDUCATION INFORMATION: Instructions: Infectious Mononucleosis Follow up: With: Address: When: RANDY MAURER [address] [facility] [place] [address] Business (1) In 3 days 06/03/2024 DIAGNOSIS: Infectious mononucleosis; Nausea & vomiting Normal [facility] ED Note-Physicianon 05-31-20 ED Note-Physician ED Note-Physician Basic Information Time Seen: Tesha TAVAREZ, Eh De Leon 05/30/2024 22:14 Chief Complaint states has had intermittent vomiting throughout week. states having intermittent difficulty breathing at times. History of Present Illness Patient is a 23-year-old male who presents today for evaluation of his intermittent nausea and vomiting as well as throat pain and shortness of breath for the last 1 and half weeks. Patient states that he is felt really rundown and unwell for the last week and a half. His biggest concern is he gets these episodes of nausea and vomiting that cause him to be short of breath. Usually happens once a day and lasts a couple of hours. He denies any abdominal pain currently but does state that his abdomen feels slightly painful when these episodes occur. He denies any fevers, bodies, chills. Denies any chest pain but does have some shortness of breath when he is having these nausea and vomiting episodes. He does have a history of asthma and was concerned that this could be possibly his asthma in nature. Review of Systems No other aggravating or relieving factors no other associated symptoms no other prior treatments or complaints. Family: Reviewed and noncontributory Social: lives at home Review of systems negative unless otherwise specified in the HPI. Physical Exam Vitals & Measurements T: 36.8 ???C(Oral) HR: 92(Peripheral) RR: 16 BP: 101/79 SpO2: 98% HT: 180 cm WT: 131 kg BMI: 40.43 Nurse's notes and vital signs reviewed. General: Alert, no acute distress, patient resting comfortably Patient is not toxic or lethargic. Skin: Warm, intact, no pallor noted. There is no evidence of rash at this time. Head: Normocephalic, atraumatic Eye: Normal conjunctiva Ears, Nose, Throat: Moist mucous membranes. Posterior pharyngeal erythema and edema with exudate bilaterally but no shift or mass. No trisumus no stridor. Tympanic membranes unremarkable bilaterally no injection erythema no posterior effusions perforation or pus. Neck: No meningeal signs. Cardio: Regular Rate and Rhythm with normal peripheral perfusion Respiratory: No acute distress, no stridor, no retractions. CTA bilaterally. Abdomen: Soft, nontender, no masses detected. No rebound, guarding, or rigidity Neurological: Appropriate for age Psychiatric: Cooperative Medical Decision Making Patient is a 23-year-old male who presents today for evaluation of his intermittent nausea and vomiting as well as throat pain and shortness of breath and half weeks. States that the episodes come and go and last a couple of hours. Denies any other systemic signs or symptoms. Patient is afebrile nontoxic-appearing. SpO2 98% on room air. He does have posterior pharyngeal erythema and edema with exudates bilaterally but no shift or mass. TMs unremarkable bilaterally. CTA to bilateral lung betts. Abdomen is soft and nontender. Labs demonstrate mild leukocytosis 11.8. Remaining labs are WNL. UA negative for UTI. Patient did test negative for strep here in the ED but tested positive for infectious mononucleosis on Monospot test. I discussed these results with the patient and will provide him with a Decadron swallow to help with the pharyngeal edema. He was given a dose of Zofran here in the ED with improvement of his symptoms. Passed p.o. challenge while here in the ED. He will be discharged home with Zofran as needed for nausea and vomiting will use OTC Tylenol ibuprofen as needed for pain. Return to ED precautions were reviewed with the patient at length. Assessment/Plan Infectious mononucleosis (B27.90: Infectious mononucleosis, unspecified without complication) Nausea & vomiting (R11.2: Nausea with vomiting, unspecified) Orders: dexamethasone, 10 mg = 1 mL, Injection, Oral, Once, Stop date 05/31/24 0:03:00 EDT, STAT, Start date 05/31/24 0:03:00 EDT, [facility]- max dose 12 mg, 05/31/24 0:03:00 EDT ondansetron, 4 mg = 1 tab(s), Tab-Dis, Oral, Once, Stop date 05/30/24 22:56:00 EDT, STAT, Start date 05/30/24 22:56:00 EDT, 05/30/24 22:56:00 EDT ondansetron, 4 mg = 1 tab(s), Oral, q6hr, # 12 tab(s), Refills(s) 0, Pharmacy: [facility], 180, cm, 05/30/24 21:46:00 EDT, Height/Length Dosing, 131, kg, 05/30/24 21:46:00 EDT, Weight Dosing Basic Metabolic Panel CBC w/ Auto Diff eGFR Group A Strep by PCR Hepatic Function Panel Lipase Level Mononucleosis Screen Rapid Strep w/rfx UA with Cult Rflx XR Chest Single View Medications Administered Given ondansetron 4 mg Dis Tab, 4 mg, Oral Disposition Plan Patient Discharge Condition Stable, improved Discharge Disposition Home Discharge Prescription List Prescriptions ondansetron 4 mg Dis Tab, 4 mg= 1 tab(s), Oral, q6hr Follow-up With When Contact Information RANDY PITA In 3 days 06/03/[address] EDT [address] [place] [address] Business (1) Additional Instructions: Patient Education Infectious Mononucleosis Attestation Patient seen (more content not included)... Normal [facility] Comment on above: Result Comment: Elec tronically Signed By: Eh Parkinson PA-C\.br\Date and Time Signed: 05/31/24 00:17 EDT\.br\Electronically Co-Signed By: Hannah Jarrett DO.br\Date and Time Co-Signed: 05/31/24 01:20 EDT ED Patient Summaryon ED Patient Summary ED Patient Summary [address] [address] Patient Discharge Instructions Person Information Name: CORBY LAW Age: 23 Years Arrival Date: 05/30/2024 21:38:55 Discharge Diagnosis: Infectious mononucleosis; Nausea & vomiting Primary Care Physician: RANDY MAURER DO Provider Information Primary Provider: Hannah Jarrett DO [employer] Technician:Eh Parkinson PA-C The exam and treatment you received in the Emergency Department were for an urgent problem and are not intended as complete care. It is important that you follow up with a doctor, nurse practitioner, or physician???s medical assistant dermatology for ongoing care. If your symptoms become worse or you do not improve as expected and you are unable to reach your usual health care provider, you should return to the Emergency Department. We are available 24 hours a day. CORBY LAW has been given the following list of patient education materials, prescriptions and follow-up instructions: Follow-up Instructions: With: Address: When: RANDY PITA [address] [place] [phone] Business (1) In 3 days 06/03/2024 In the event that this physician does not participate in your insurance network, please consult with your insurance company to find a nearby participating provider. Patient Education Materials: Infectious Mononucleosis A MESSAGE TO ALL PATIENTS REGARDING OPIOIDS PRESCRIPTION OPIOIDS: WHAT YOU NEED TO KNOW Prescription opioids can be used to help relieve uthghzwc-wh-wabisu pain and are often prescribed following a [...] as well, even when taken as directed: ??? Tolerance???meaning you might need to take more of the medication for the same pain relief ??? Physical dependence???meaning you have symptoms of withdrawal when a medication is stopped ??? Increased sensitivity to pain ??? Constipation ??? Nausea, vomiting, and dry mouth ??? Sleepiness and dizziness ??? Confusion ??? Depression ??? Low levels of testosterone that can result in lower sex drive, energy, and strength ??? Itching and sweating RISKS ARE GREATER WITH: ??? History of drug misuse, substance use disorder, or overdose ??? Mental health conditions (such as depression or anxiety) ??? Sleep apnea ??? Older age (65 years and older) ??? Avoid alcohol while taking prescription opioids. Also, unless specifically advised by your health care provider, medications to avoid include: ??? Benzodiazepines (such as Xanax or Valium) ??? Muscle relaxants (such as Soma or Flexeril) ??? Hypnotics (such as Ambien or Lunesta) ??? Other prescription opioids KNOW YOUR OPTIONS Talk to your health care provider about ways to manage your pain that don???t involve prescription opioids. Some of these options may actually work better and have fewer risks and side effects. Options may include: ??? Pain relievers such as acetaminophen, ibuprofen, and naproxen ??? Some medication that are also used for depression or seizures ??? Physical therapy and exercise ??? Cognitive behavioral therapy, a psychological, goal-directed approach, in which patients learn how to modify physical, behavioral, and emotional triggers of pain and stress. IF YOU ARE PRESCRIBED OPIOIDS FOR PAIN: ??? Never take opioids in greater amounts or more often than prescribed. ??? Follow up with your primary health care provider. o Work together to create a plan on how to manage your pain. o Talk about ways to help manage your pain that don???t involve prescription opioids. o Talk about any and all concerns and side effects. ??? Help prevent misuse and abuse o Never sell or share prescription opioids. o Never use another person???s prescription opioids. ??? Store prescription opioids in a secure place and out of reach of others (this may include visitors, children, friends, and family). ??? Safely dispose of unused prescription opioids: Find your community drug take-back program or your pharmacy mail-back program, or flush them down the toilet, following guidance from the Food and Drug Administration (www.fda.gov/Drugs/Re sourcesForYou). ??? Visit www.cdc.gov/drugoverd ose to learn about the risks of opioids abuse and overdose. ??? If you believe you may be struggling with addiction, tell (more content not included)... Normal [facility] Grp A Strp PCRon 05-31-2024 Group A Strep Negative Normal Negative [facility] Comment on above: Order Comment: Order Added on by Discern Rule. Result Comment: Test ing performed using DNA amplification. Performed By: #### 1 [id number] #### [facility] [address] [place] [address] Grp A Strp Intrl Ctrl Pass Normal [facility] Comment on above: Order Comment: Order Added on by Discern Rule. Performed By: #### 1 [id number] #### [facility] [address] [place] [address] XR Chest Single Viewon 05-31 XR Chest Single View Exam Date/Time: 05/30/2024 23:06 EDT Reason for Exam: Cough Report IMPRESSION: No acute findings by portable radiography. EXAMINATION/TECHNIQUE : XR Chest Single View HISTORY: Cough. COMPARISON: 05/04/2022. RESULT: No consolidation. No pleural effusion. No pneumothorax. Normal cardiomediastinal silhouette. No acute osseous findings. Ordering Provider: Eh Parkinson FINAL REPORT Dictated: 05/31/2024 10:44 am Zeus Jay MD Signed (Electronic Signature): 05/31/2024 10:44 am Signed by: Zeus Jay MD Transcribed by: FELIPE Technologist: RACHAEL Technical Comments Radiation Dose: Ka,r in mGy = na DAP = na Normal [facility] BMPon 05-30-2024 Anion gap [Moles/Vol] 12 mmol/L Normal 6-16 [facility] Comment on above: Performed By: #### 2 [id number] #### [facility] [address] [place] [address] Calcium [Mass/Vol] 9.2 mg/dL Normal 8.9-11.1 [facility] Comment on above: Performed By: #### 2 [id number] #### [facility] [address] [place] [address] Chloride [Moles/Vol] 104 mmol/L Normal 101-111 [facility] Comment on above: Performed By: #### 2 [id number] #### [facility] [address] [place] [address] CO2 [Moles/Vol] 27 mmol/L Normal 21-31 [facility] Comment on above: Performed By: #### 2 168261 #### [facility] [address] [place] [address] Creatinine [Mass/Vol] 0.9 mg/dL Normal 0.5-1.3 [facility] Comment on above: Performed By: #### 2 344776 #### [facility] [address] [place] [address] Glucose [Mass/Vol] 108 mg/dL Normal 55-199 [facility] Comment on above: Performed By: #### 2 728261 #### [facility] [address] [place] [address] Potassium [Moles/Vol] 3.5 mmol/L Normal 3.5-5.3 [facility] Comment on above: Performed By: #### 2 369042 #### [facility] [address] [place] [address] Sodium [Moles/Vol] 139 mmol/L Normal 135-145 [facility] Comment on above: Performed By: #### 2 737889 #### [facility] [address] [place] [address] Urea nitrogen [Mass/Vol] 12 mg/dL Normal 5-21 [facility] Comment on above: Performed By: #### 2 808839 #### [facility] [address] [place] [address] Urea nitrogen/Creatinine [Mass ratio] 13 No Units Normal 10-20 [facility] Comment on above: Performed By: #### 2 909073 #### [facility] [address] [place] [address] CBC w/ Auto Diffon 10-30-202 4 Basophils/100 WBC (Bld) 0.8 % Normal 0.0-2.0 [facility] Comment on above: Performed By: #### 2 [id number] #### [facility] [address] [place] [address] Basophils/Leukocytes Auto (Bld) [Pure # fraction] 0.1 E9/L Normal 0.0-0.2 [facility] Comment on above: Performed By: #### 2 293905 #### [facility] [address] [place] [address] Eosinophils (Bld) [#/Vol] 0.4 E9/L Normal 0.0-0.5 [facility] Comment on above: Performed By: #### 2 903510 #### [facility] [address] [place] [address] Eosinophils/100 WBC (Bld) 3.0 % Normal 0.0-8.0 [facility] Comment on above: Performed By: #### 2 757078 #### [facility] [address] [place] [address] Erythrocyte distribution width (RBC) [Ratio] 12.9 % Normal 10.9-14.2 [facility] Comment on above: Performed By: #### 2 983224 #### [facility] [address] [place] [address] Hematocrit (Bld) [Volume fraction] 47.8 % Normal 37.7-49.0 [facility] Comment on above: Performed By: #### 2 959468 #### [facility] [address] [place] [address] Hemoglobin (Bld) [Mass/Vol] 17.0 g/dL Normal 13.5-17.5 [facility] Comment on above: Performed By: #### 2 644205 #### [facility] [address] [place] [address] Lymphocytes (Bld) [#/Vol] 2.9 E9/L Normal 1.0-4.0 [facility] Comment on above: Performed By: #### 2 716895 #### [facility] [address] [place] [address] Lymphocytes/100 WBC (Bld) 24.4 % Normal 14.0-50.0 [facility] Comment on above: Performed By: #### 2 159223 #### [facility] [address] [place] [address] MCH (RBC) [Entitic mass] 31.1 pg Normal 27.0-34.0 [facility] Comment on above: Performed By: #### 2 500544 #### [facility] [address] [place] [address] MCHC (RBC) [Mass/Vol] 35.5 g/dL Normal 31.4-36.0 [facility] Comment on above: Performed By: #### 2 497516 #### [facility] [address] [place] [address] MCV (RBC) [Entitic vol] 87.5 fL Normal 80.0-100.0 [facility] Comment on above: Performed By: #### 2 898499 #### [facility] [address] [place] [address] Monocytes (Bld) [#/Vol] 0.9 E9/L Normal 0.2-1.0 [facility] Comment on above: Performed By: #### 2 766094 #### [facility] [address] [place] [address] Neutrophils (Bld) [#/Vol] 7.6 E9/L High 2.0-7.5 [facility] Comment on above: Performed By: #### 2 269765 #### [facility] [address] [place] [address] Neutrophils/100 WBC (Bld) 64.4 % Normal 36.0-75.0 [facility] Comment on above: Performed By: #### 2 620967 #### [facility] [address] [place] [address] Platelet 305.0 E9/L Normal 150.0-500.0 [facility] Comment on above: Performed By: #### 2 978109 #### [facility] [address] [place] [address] Platelet mean volume (Bld) [Entitic vol] 8.6 fL Normal 6.4-10.8 [facility] Comment on above: Performed By: #### 2 723781 #### [facility] [address] [place] [address] RBC (Bld) [#/Vol] 5.5 E12/L Normal 4.3-5.9 [facility] Comment on above: Performed By: #### 2 771179 #### [facility] [address] [place] [address] WBC corrected for nucl RBC Auto (Bld) [#/Vol] 11.8 E9/L High 4.0-11.0 [facility] Comment on above: Performed By: #### 2 131681 #### [facility] [address] [place] [address] CHEMISTRYOrdered By: SYSTEM SYSTEM on 05-30-2024 Albumin [Mass/Vol] 4.7 g/dL Normal 3.3 - 5.0 gm/dL [facility] Albumin/Globulin [Mass ratio] 1.6 {ratio} Normal 1.1 - 2.2 [facility] ALP [Catalytic activity/Vol] 81 [iU]/d Normal 21 - 98 Int._Unit/L [facility] ALT No additional P-5'-P [Catalytic activity/Vol] 50 [iU]/d High 6 - 46 Int._Unit/L [facility] Anion gap [Moles/Vol] 12 mmol/L Normal 6 - 16 mEq/L R [facility] AST [Catalytic activity/Vol] 27 [iU]/d Normal 5 - 43 Int._Unit/L [facility] Bilirubin [Mass/Vol] 0.8 mg/dL Normal 0.0 - 1 .1 mg/dL [facility] Bilirubin.direct [Mass/Vol] 0.1 mg/dL Normal 0.0 - 0.4 mg/dL [facility] Bilirubin.indirect [Mass or moles/Vol] 0.7 mg/dL Normal 0.1 - 0.9 mg/dL [facility] Calcium [Mass/Vol] 9.2 mg/dL Normal 8.9 - 11. 1 mg/dL [facility] Chloride [Moles/Vol] 104 mmol/L Normal 101 - 1 11 mmol/L [facility] CO2 [Moles/Vol] 27 mmol/L Normal 21 - 31 mmol/L [facility] Creatinine [Mass/Vol] 0.9 mg/dL Normal 0.5 - 1.3 mg/dL [facility] eGFR 124 mL/min/1.73 m2 Normal >=59mL/mi n/1 .73 m2 [facility] Globulin (S) [Mass/Vol] 3.0 g/dL Normal 1.4 - 4.0 gm/dL [facility] Glucose [Mass/Vol] 108 mg/dL Normal 55 - 199 mg/dL [facility] Lipase [Catalytic activity/Vol] 14 U/L Normal 13 - 58 unit/L [facility] Potassium [Moles/Vol] 3.5 mmol/L Normal 3.5 - 5.3 mmol/L [facility] Protein [Mass/Vol] 7.7 g/dL Normal 6.0 - 7.8 gm/dL [facility] Sodium [Moles/Vol] 139 mmol/L Normal 135 - 145 mmol/L [facility] Urea nitrogen [Mass/Vol] 12 mg/dL Normal 5 - 21 mg/dL [facility] Urea nitrogen/Creatinine [Mass ratio] 13 mg/mg Normal 10 - 20 [facility] HEMATOLOGYOrdered By: SYSTEM SYSTEM on 05-30-2024 Basophils/100 WBC (Bld) 0.8 % Normal 0.0 - 2.0 % [facility] Basophils/Leukocytes Auto (Bld) [Pure # fraction] 0.1 E9/L Normal 0.0 - 0.2 E9/L [facility] Eosinophils (Bld) [#/Vol] 0.4 E9/L Normal 0.0 - 0.5 E9/L [facility] Eosinophils/100 WBC (Bld) 3.0 % Normal 0.0 - 8.0 % [facility] Erythrocyte distribution width (RBC) [Ratio] 12.9 % Normal 10.9 - 14.2 % [facility] Hematocrit (Bld) [Volume fraction] 47.8 % Normal 37.7 - 49.0 % [facility] Hemoglobin (Bld) [Mass/Vol] 17.0 g/dL Normal 13.5 - 17.5 gm/dL [facility] Lymphocytes (Bld) [#/Vol] 2.9 E9/L Normal 1.0 - 4.0 E9/L [facility] Lymphocytes/100 WBC (Bld) 24.4 % Normal 14.0 - 50.0 % [facility] MCH (RBC) [Entitic mass] 31.1 pg Normal 27.0 - 34.0 pg [facility] MCHC (RBC) [Mass/Vol] 35.5 g/dL Normal 31.4 - 36.0 gm/dL [facility] MCV (RBC) [Entitic vol] 87.5 fL Normal 80.0 - 100.0 fL [facility] Monocytes (Bld) [#/Vol] 0.9 E9/L Normal 0.2 - 1.0 E9/L [facility] Monocytes/100 WBC (Bld) 7.4 % Normal 4.0 - 14.0 % [facility] Neutrophils (Bld) [#/Vol] 7.6 E9/L High 2.0 - 7.5 E9/L [facility] Neutrophils/100 WBC (Bld) 64.4 % Normal 36.0 - 75.0 % [facility] Platelet 305.0 E9/L Normal 150.0 - 500.0 E9/L [facility] Platelet mean volume (Bld) [Entitic vol] 8.6 fL Normal 6.4 - 10.8 fL [facility] RBC (Bld) [#/Vol] 5.5 E12/L Normal 4.3 - 5.9 E12/L [facility] WBC corrected for nucl RBC Auto (Bld) [#/Vol] 11.8 E9/L High 4.0 - 11.0 E9/L [facility] Hep Func Panelon 05-30-2024 Albumin [Mass/Vol] 4.7 g/dL Normal 3.3-5.0 [facility] Comment on above: Performed By: #### 2 [id number] #### [facility] [address] [place] [address] Albumin/Globulin (S) [Mass conc ratio] 1.6 Normal 1.1-2.2 [facility] Comment on above: Performed By: #### 2 [id number] #### [facility] [address] [place] [address] ALP [Catalytic activity/Vol] 81 Int._Unit/L Normal 21-98 [facility] Comment on above: Performed By: #### 2 [id number] #### [facility] [address] [place] [address] ALT No additional P-5'-P [Catalytic activity/Vol] 50 Int._Unit/L High 6-46 [facility] Comment on above: Performed By: #### 2 473859 #### [facility] [address] [place] [address] AST [Catalytic activity/Vol] 27 Int._Unit/L Normal 5-43 [facility] Comment on above: Performed By: #### 2 887753 #### [facility] [address] [place] [address] Bilirubin [Mass/Vol] 0.8 mg/dL Normal 0.0-1.1 [facility] Comment on above: Performed By: #### 2 839402 #### [facility] [address] [place] [address] Bilirubin.direct [Mass/Vol] 0.1 mg/dL Normal 0.0-0.4 [facility] Comment on above: Performed By: #### 2 736425 #### [facility] [address] [place] [address] Bilirubin.indirect [Mass or moles/Vol] 0.7 mg/dL Normal 0.1-0.9 [facility] Comment on above: Performed By: #### 2 404776 #### [facility] [address] [place] [address] Globulin (S) [Mass/Vol] 3.0 g/dL Normal 1.4-4.0 [facility] Comment on above: Performed By: #### 2 155036 #### [facility] [address] [place] [address] Protein [Mass/Vol] 7.7 g/dL Normal 6.0-7.8 [facility] Comment on above: Performed By: #### 2 556702 #### [facility] [address] [place] [address] Lipase Levelon 05-30-2024 Lipase [Catalytic activity/Vol] 14 U/L Normal 13-58 [facility] Comment on above: Performed By: #### 2 [id number] #### [facility] [address] [place] [address] MICRO OTHER TESTSOrdered By: Augusta Lord on 05-30-2024 S. pyogenes Ag IA.rapid Ql (Throat) Negative (05/30/24 11:03 PM) Normal Negative [facility] [place] Sero [place] Screenon 05-30-2024 Heterophile Ab LA Ql (S) Positive Abnormal Negative [facility] Comment on above: Performed By: #### 2 [id number] #### [facility] [address] [place] [address] Rapid Strep w/rfxon 05-30-20 24 S. pyogenes Ag IA.rapid Ql (Throat) Negative Normal Negative [facility] Comment on above: Performed By: #### 2 [id number] #### [facility] [address] [place] [address] SEROLOGYOrdered By: Augusta Lord on 05-30-2024 Heterophile Ab LA Ql (S) Positive *ABN* (05/30/24 11:29 PM) Invalid Interpretation Code Negative [facility] [place] Man Sero UA with Cult Rflxon 05-30-20 Bilirubin Ql (U) Negative Normal Negative [facility] Comment on above: Performed By: #### 4 [id number] #### [facility] [address] [place] [address] Clarity (U) Clear Normal Clear [facility] Comment on above: Performed By: #### 4 [id number] #### [facility] [address] [place] [address] Color (U) Yellow Normal Yellow [facility] Comment on above: Result Comment: Micr oscopic readings are only performed on those samples that meet specific criteria set forth by [facility]. Performed By: #### 4 [id number] #### [facility] [address] [place] [address] Epithelial cells.squamous Auto (Urine sed) [#/Area] 0-2 Invalid Interpretation Code [facility] Comment on above: Performed By: #### 4 [id number] #### [facility] [address] [place] [address] Glucose Ql (U) Negative Normal Negative [facility] Comment on above: Performed By: #### 4 [id number] #### [facility] [address] [place] [address] Hemoglobin Auto test strip (U) [Mass/Vol] 1+ mg/dL Abnormal Negative [facility] Comment on above: Performed By: #### 4 [id number] #### [facility] [address] [place] [address] Ketones Auto test strip Ql (U) Negative Normal Negative [facility] Comment on above: Performed By: #### 4 [id number] #### [facility] [address] [place] [address] Leukocyte esterase Auto test strip Ql (U) Negative Normal Negative [facility] Comment on above: Performed By: #### 4 [id number] #### [facility] [address] [place] [address] Mucus Auto Ql (U) 2+ [id number] Abnormal Negative [facility] Comment on above: Performed By: #### 4 [id number] #### [facility] [address] [place] [address] Nitrite Auto test strip Ql (U) Negative Normal Negative [facility] Comment on above: Performed By: #### 4 [id number] #### [facility] [address] [place] [address] pH (U) 6.0 [pH] Invalid Interpretation Code 5.0-9.0 [facility] Comment on above: Performed By: #### 4 [id number] #### [facility] [address] [place] [address] Protein Ql (U) Trace Abnormal Negative [facility] Comment on above: Performed By: #### 4 [id number] #### [facility] [address] [place] [address] RBC Ql (U) 21-30 Abnormal 0-3 [facility] Comment on above: Performed By: #### 4 [id number] #### [facility] [address] [place] [address] Specific gravity (U) [Rel density] 1.029 Invalid Interpretation Code 1.005-1.030 [facility] Comment on above: Performed By: #### 4 [id number] #### [facility] [address] [place] [address] Urobilinogen (U) [Mass/Vol] Negative Normal Negative [facility] Comment on above: Performed By: #### 4 [id number] #### [facility] [address] [place] [address] WBC Auto (Urine sed) [#/Area] 0-5 Normal 0-5 [facility] Comment on above: Performed By: #### 4 [id number] #### [facility] [address] [place] [address] Type of Urine collection method Clean Catch Normal [facility] Comment on above: Performed By: #### 4 [id number] #### [facility] [address] [place] [address] URINALYSISOrdered By: SYSTEM SYSTEM on 05-30-2024 Bilirubin Ql (U) Negative Normal Negativemg/ d L [facility] UA Auto SS Clarity (U) Clear (05/30/24 11:11 PM) Normal Clear [facility] [place] UA Auto SS Color (U) Yellow 1 (05/30/24 11:11 PM) Normal Yellow [facility] [place] UA Auto SS Comment on above: Interpretive Data: M icroscopic readings are only performed on those samples that meet specific criteria set forth by [facility]. Epithelial cells.squamous Auto (Urine sed) [#/Area] 0-2 graded/HPF Invalid Interpretation Code [facility] UA Auto SS Glucose Ql (U) Negative Normal Negativemg/d L [facility] UA Auto SS Hemoglobin Auto test strip (U) [Mass/Vol] 1+ mg/dL Invalid Interpretation Code Negativemg/d L [facility] UA Auto SS Ketones Auto test strip Ql (U) Negative Normal Negativemg/d L [facility] UA Auto SS Leukocyte esterase Auto test strip Ql (U) Negative Normal NegativeLeu/ uL [facility] UA Auto SS Mucus Auto Ql (U) 2+ graded/LPF Invalid Interpretation Code Negativegrad ed/LPF [facility] UA Auto SS Nitrite Auto test strip Ql (U) Negative Normal Negativemg/d L [facility] UA Auto SS pH (U) 6.0 *NA* (05/30/24 11:11 PM) Invalid Interpretation Code 5.0 - 9.0 [facility] UA Auto SS Protein Ql (U) Trace mg/dL Invalid Interpretation Code Negativemg/d L [facility] UA Auto SS RBC Ql (U) 21-30 graded/HPF Invalid Interpretation Code 0-3graded/HP F [facility] UA Auto SS Specific gravity (U) [Rel density] 1.029 *NA* (05/30/24 11:11 PM) Invalid Interpretation Code 1.005 - 1.030 [facility] UA Auto SS Urobilinogen (U) [Mass/Vol] Negative Normal Negativemg/d L [facility] UA Auto SS WBC Auto (Urine sed) [#/Area] 0-5 graded/HPF Normal 0-5graded/HP F [facility] UA Auto SS URINALYSISOrdered By: Eh Parkinson on 05-30-2024 UA Spec Desc Clean Catch (05/30/24 11:11 PM) Normal [facility] UA Auto SS eGFRon 05-30-2024 eGFR 124 mL/min/1.73 m2 Normal >=59 [facility] Comment on above: Performed By: #### 1 [id number] #### [facility] [address] [place] [address] CBC w/ Auto Diffon 4 Basophils/100 WBC (Bld) 0.9 % Normal 0.0-2.0 [facility] Comment on above: Performed By: #### 2 860155, 2572898, 0382576, 6327365, 53712978 #### [facility] [address] [place] [address] Basophils/Leukocytes Auto (Bld) [Pure # fraction] 0.1 E9/L Normal 0.0-0.2 [facility] Comment on above: Performed By: #### 2 671637, 3128276, 3980677, 2644558, 58902620 #### [facility] [address] [place] [address] Eosinophils (Bld) [#/Vol] 0.3 E9/L Normal 0.0-0.5 [facility] Comment on above: Performed By: #### 2 044897, 9701026, 3413390, 7574774, 88034488 #### [facility] [address] [place] [address] Eosinophils/100 WBC (Bld) 2.7 % Normal 0.0-8.0 [facility] Comment on above: Performed By: #### 2 763269, 4117919, 1536781, 6805056, 03131160 #### [facility] [address] [place] [address] Erythrocyte distribution width (RBC) [Ratio] 13.2 % Normal 10.9-14.2 [facility] Comment on above: Performed By: #### 2 401531, 5914980, 8911689, 3090168, 64027783 #### [facility] [address] [place] [address] Hematocrit (Bld) [Volume fraction] 50.8 % High 37.7-49.0 [facility] Comment on above: Performed By: #### 2 299298, 3825061, 6938788, 3861246, 77397548 #### [facility] [address] [place] [address] Hemoglobin (Bld) [Mass/Vol] 17.4 g/dL Normal 13.5-17.5 [facility] Comment on above: Performed By: #### 2 645028, 7273556, 3637741, 1605239, 51097881 #### [facility] [address] [place] [address] Lymphocytes (Bld) [#/Vol] 2.9 E9/L Normal 1.0-4.0 [facility] Comment on above: Performed By: #### 2 559996, 4067994, 6143630, 2914418, 23524729 #### [facility] [address] [place] [address] Lymphocytes/100 WBC (Bld) 26.3 % Normal 14.0-50.0 [facility] Comment on above: Performed By: #### 2 437088, 5790118, 4234775, 4294683, 99917157 #### [facility] [address] [place] [address] MCH (RBC) [Entitic mass] 30.7 pg Normal 27.0-34.0 [facility] Comment on above: Performed By: #### 2 679936, 2974772, 7470517, 4879215, 14025278 #### [facility] [address] [place] [address] MCHC (RBC) [Mass/Vol] 34.3 g/dL Normal 31.4-36.0 [facility] Comment on above: Performed By: #### 2 578186, 4863335, 0651023, 4869235, 64823051 #### [facility] [address] [place] [address] MCV (RBC) [Entitic vol] 89.5 fL Normal 80.0-100.0 [facility] Comment on above: Performed By: #### 2 481035, 7788751, 0269967, 6214421, 77691088 #### [facility] [address] [place] [address] Monocytes (Bld) [#/Vol] 0.6 E9/L Normal 0.2-1.0 [facility] Comment on above: Performed By: #### 2 578033, 0313454, 3864337, 9447564, 98007649 #### [facility] [address] [place] [address] Neutrophils (Bld) [#/Vol] 7.0 E9/L Normal 2.0-7.5 [facility] Comment on above: Performed By: #### 2 115272, 2711164, 6696094, 5346679, 06596509 #### [facility] [address] [place] [address] Neutrophils/100 WBC (Bld) 64.3 % Normal 36.0-75.0 [facility] Comment on above: Performed By: #### 2 367181, 1777303, 0558675, 9999285, 81420818 #### [facility] [address] [place] [address] Platelet 308.0 E9/L Normal 150.0-500.0 [facility] Comment on above: Performed By: #### 2 641789, 3802241, 5652196, 7517270, 06453211 #### [facility] [address] [place] [address] Platelet mean volume (Bld) [Entitic vol] 9.0 fL Normal 6.4-10.8 [facility] Comment on above: Performed By: #### 2 335691, 0074679, 2436379, 8856881, 93385200 #### [facility] [address] [place] [address] RBC (Bld) [#/Vol] 5.7 E12/L Normal 4.3-5.9 [facility] Comment on above: Performed By: #### 2 932280, 5417772, 1810471, 9169649, 09355499 #### [facility] [address] [place] [address] WBC corrected for nucl RBC Auto (Bld) [#/Vol] 10.8 E9/L Normal 4.0-11.0 [facility] Comment on above: Performed By: #### 2 289464, 2137251, 0733229, 5382621, 47589330 #### [facility] [address] [place] [address] CHEMISTRYOrdered By: SYSTEM SYSTEM on 12-06-2023 Albumin [Mass/Vol] 4.4 g/dL Normal 3.3 - 5.0 gm/dL [facility] Albumin/Globulin [Mass ratio] 1.5 {ratio} Normal 1.1 - 2.2 [facility] ALP [Catalytic activity/Vol] 81 [iU]/d Normal 21 - 98 Int._Unit/L [facility] ALT No additional P-5'-P [Catalytic activity/Vol] 48 [iU]/d High 6 - 46 Int._Unit/L [facility] Anion gap [Moles/Vol] 13 mmol/L Normal 6 - 16 mEq/L R [facility] AST [Catalytic activity/Vol] 30 [iU]/d Normal 5 - 43 Int._Unit/L [facility] Bilirubin [Mass/Vol] 0.8 mg/dL Normal 0.0 - 1 .1 mg/dL [facility] Calcium [Mass/Vol] 9.1 mg/dL Normal 8.9 - 11. 1 mg/dL [facility] Chloride [Moles/Vol] 104 mmol/L Normal 101 - 1 11 mmol/L [facility] Cholesterol [Mass/Vol] 155 mg/dL Normal 120 - 200 mg/dL [facility] Cholesterol in HDL [Mass/Vol] 34 mg/dL Invalid Interpretation Code [facility] Comment on above: Result Comment: '>= 60 LOW RISK' '<= 40 HIGH RISK' Cholesterol in LDL [Mass/Vol] 114 mg/dL Normal <=129mg/dL [facility] Cholesterol in VLDL [Mass/Vol] 21 mg/dL Normal 7 - 40 mg/dL [facility] CO2 [Moles/Vol] 27 mmol/L Normal 21 - 31 mmol/L [facility] Creatinine [Mass/Vol] 0.9 mg/dL Normal 0.5 - 1.3 mg/dL [facility] eGFR 124 mL/min/1.73 m2 Normal >=59mL/mi n/1 .73 m2 [facility] Globulin (S) [Mass/Vol] 3.0 g/dL Normal 1.4 - 4.0 gm/dL [facility] Glucose [Mass/Vol] 89 mg/dL Normal 55 - 199 mg/dL [facility] Potassium [Moles/Vol] 4.0 mmol/L Normal 3.5 - 5.3 mmol/L [facility] Protein [Mass/Vol] 7.4 g/dL Normal 6.0 - 7.8 gm/dL [facility] Sodium [Moles/Vol] 140 mmol/L Normal 135 - 145 mmol/L [facility] Triglyceride [Mass/Vol] 105 mg/dL Normal <=149mg/dL [facility] TSH Qn 1.38 m[IU]/L Normal 0.34 - 5.60 mcIU/mL [facility] Urea nitrogen [Mass/Vol] 9 mg/dL Normal 5 - 21 mg/dL [facility] Urea nitrogen/Creatinine [Mass ratio] 10 mg/mg Normal 10 - 20 [facility] CMPon 12-06-2023 Albumin [Mass/Vol] 4.4 g/dL Normal 3.3-5.0 [facility] Comment on above: Performed By: #### 2 683607, 6068130, 8731674, 8927273, 43862761 #### [facility] [address] [place] [address] Albumin/Globulin (S) [Mass conc ratio] 1.5 Normal 1.1-2.2 [facility] Comment on above: Performed By: #### 2 035609, 5676887, 8554074, 0704699, 01667172 #### [facility] [address] [place] [address] ALP [Catalytic activity/Vol] 81 Int._Unit/L Normal 21-98 [facility] Comment on above: Performed By: #### 2 542822, 6937711, 0994120, 7241244, 66794438 #### [facility] [address] [place] [address] ALT No additional P-5'-P [Catalytic activity/Vol] 48 Int._Unit/L High 6-46 [facility] Comment on above: Performed By: #### 2 271594, 9617227, 8374884, 9700826, 76668514 #### [facility] [address] [place] [address] Anion gap [Moles/Vol] 13 mmol/L Normal 6-16 [facility] Comment on above: Performed By: #### 2 713933, 7981954, 0369643, 7515827, 15680799 #### [facility] [address] [place] [address] AST [Catalytic activity/Vol] 30 Int._Unit/L Normal 5-43 [facility] Comment on above: Performed By: #### 2 675803, 7357965, 0969996, 1599162, 15231463 #### [facility] [address] [place] [address] Bilirubin [Mass/Vol] 0.8 mg/dL Normal 0.0-1.1 [facility] Comment on above: Performed By: #### 2 416665, 8140348, 7279654, 0129198, 96276011 #### [facility] [address] [place] [address] Calcium [Mass/Vol] 9.1 mg/dL Normal 8.9-11.1 [facility] Comment on above: Performed By: #### 2 663404, 8398435, 7541856, 0199817, 96881474 #### [facility] [address] [place] [address] Chloride [Moles/Vol] 104 mmol/L Normal 101-111 [facility] Comment on above: Performed By: #### 2 257128, 7977384, 0708102, 8661920, 94356185 #### [facility] [address] [place] [address] CO2 [Moles/Vol] 27 mmol/L Normal 21-31 [facility] Comment on above: Performed By: #### 2 526448, 4470369, 7160682, 9299625, 30192907 #### [facility] [address] [place] [address] Creatinine [Mass/Vol] 0.9 mg/dL Normal 0.5-1.3 [facility] Comment on above: Performed By: #### 2 899742, 6884489, 7350085, 1278109, 06984451 #### [facility] [address] [place] [address] Globulin (S) [Mass/Vol] 3.0 g/dL Normal 1.4-4.0 [facility] Comment on above: Performed By: #### 2 [id number], [id number], [id number], [id number], [id number] #### [facility] [address] [place] [address] Glucose [Mass/Vol] 89 mg/dL Normal 55-199 [facility] Comment on above: Performed By: #### 2 763672, [id number], 6652479, 7644477, [id number] #### [facility] [address] [place] [address] Potassium [Moles/Vol] 4.0 mmol/L Normal 3.5-5.3 [facility] Comment on above: Performed By: #### 2 089446, 7998347, 1576685, 7576620, [id number] #### [facility] [address] [place] [address] Protein [Mass/Vol] 7.4 g/dL Normal 6.0-7.8 [facility] Comment on above: Performed By: #### 2 873956, 8292969, 9604536, [id number], [id number] #### [facility] [address] [place] [address] Sodium [Moles/Vol] 140 mmol/L Normal 135-145 [facility] Comment on above: Performed By: #### 2 640245, 1537777, 3165386, 9681704, [id number] #### [facility] [address] [place] [address] Urea nitrogen [Mass/Vol] 9 mg/dL Normal 5-21 [facility] Comment on above: Performed By: #### 2 787171, 1407294, 7104099, 5538006, [id number] #### [facility] [address] [place] [address] Urea nitrogen/Creatinine [Mass ratio] 10 No Units Normal 10-20 [facility] Comment on above: Performed By: #### 2 446033, 0428624, 9129831, 4354448, [id number] #### [facility] [address] [place] [address] Consent for Treatmenton Consent for Treatment [id number] Normal [facility] HEMATOLOGYOrdered By: SYSTEM SYSTEM on 12-06-2023 Basophils/100 WBC (Bld) 0.9 % Normal 0.0 - 2.0 % [facility] Basophils/Leukocytes Auto (Bld) [Pure # fraction] 0.1 E9/L Normal 0.0 - 0.2 E9/L [facility] Eosinophils (Bld) [#/Vol] 0.3 E9/L Normal 0.0 - 0.5 E9/L [facility] Eosinophils/100 WBC (Bld) 2.7 % Normal 0.0 - 8.0 % [facility] Erythrocyte distribution width (RBC) [Ratio] 13.2 % Normal 10.9 - 14.2 % [facility] Hematocrit (Bld) [Volume fraction] 50.8 % High 37.7 - 49.0 % [facility] Hemoglobin (Bld) [Mass/Vol] 17.4 g/dL Normal 13.5 - 17.5 gm/dL [facility] Lymphocytes (Bld) [#/Vol] 2.9 E9/L Normal 1.0 - 4.0 E9/L [facility] Lymphocytes/100 WBC (Bld) 26.3 % Normal 14.0 - 50.0 % [facility] MCH (RBC) [Entitic mass] 30.7 pg Normal 27.0 - 34.0 pg [facility] MCHC (RBC) [Mass/Vol] 34.3 g/dL Normal 31.4 - 36.0 gm/dL [facility] MCV (RBC) [Entitic vol] 89.5 fL Normal 80.0 - 100.0 fL [facility] Monocytes (Bld) [#/Vol] 0.6 E9/L Normal 0.2 - 1.0 E9/L [facility] Monocytes/100 WBC (Bld) 5.8 % Normal 4.0 - 14.0 % [facility] Neutrophils (Bld) [#/Vol] 7.0 E9/L Normal 2.0 - 7.5 E9/L [facility] Neutrophils/100 WBC (Bld) 64.3 % Normal 36.0 - 75.0 % [facility] Platelet 308.0 E9/L Normal 150.0 - 500.0 E9/L [facility] Platelet mean volume (Bld) [Entitic vol] 9.0 fL Normal 6.4 - 10.8 fL [facility] RBC (Bld) [#/Vol] 5.7 E12/L Normal 4.3 - 5.9 E12/L [facility] WBC corrected for nucl RBC Auto (Bld) [#/Vol] 10.8 E9/L Normal 4.0 - 11.0 E9/L [facility] Lipid Panelon 12-06-2023 Cholesterol [Mass/Vol] 155 mg/dL Normal 120-200 [facility] Comment on above: Performed By: #### 2 [id number], 3450411, 8758580, 8580264, [id number] #### [facility] [address] [place] [address] Cholesterol in HDL [Mass/Vol] 34 mg/dL Invalid Interpretation Code [facility] Comment on above: Result Comment: '>= 60 LOW RISK' '<= 40 HIGH RISK' Performed By: #### 2 850756, 1527182, 0373905, 2798204, [id number] #### [facility] [address] [place] [address] Cholesterol in LDL [Mass/Vol] 114 mg/dL Normal <=129 [facility] Comment on above: Performed By: #### 2 733725, 7376234, 3557817, 5465462, [id number] #### [facility] [address] [place] [address] Cholesterol in VLDL [Mass/Vol] 21 mg/dL Normal 7-40 [facility] Comment on above: Performed By: #### 2 919600, 5410702, 6163967, 7266810, [id number] #### [facility] [address] [place] [address] Triglyceride [Mass/Vol] 105 mg/dL Normal <=149 [facility] Comment on above: Performed By: #### 2 513589, 1614622, 2862849, 1295047, [id number] #### [facility] [address] [place] [address] Physician Orderon 12-06-2023 Physician Order [id number] .[id number] Normal [facility] TSHon 12-06-2023 TSH Qn 1.38 m[IU]/L Normal 0.34-5.60 [facility] Comment on above: Performed By: #### 2 779927, 0961839, 8879666, 2921996, [id number] #### [facility] [address] [place] [address] eGFRon 12-06-2023 eGFR 124 mL/min/1.73 m2 Normal >=59 [facility] Comment on above: Order Comment: Order added by Discern Expert. Performed By: #### 2 714750, 7484414, 2124625, [id number], [id number] #### [facility] [address] [place] [address] No Panel InformationOrdered By: Tracey Garcia on 11-30-2023 Quick Strep (POC) [facility] [place] Family [facility] Office/Clini c Noteon 11-06-2023 Family Medicine Office/Clinic Note Chief Complaint white spots and bumps on tongue HPI Staff 22 year old male presents with white build up on tongue and some bumps on tongue, throat feels weird- doesnt hurt but doesnt feel right pt bought a new toothbrush and toothpaste symptoms began 1 week ago History of Present Illness 22-year-old male to the clinic for a sudden onset of a odd feeling on his tongue and in the esophagus where he cannot quite see back far enough. This started as a white coating on the tongue which I am able to scrape away today. Has been trying to brush his tongue without resolution of the problem. He denies any pain with this other than the mechanical discomfort from scrubbing on the tongue. He states it does not hurt in his throat but something certainly feels odd. He denies any globus or constricting sensation. Review of Systems PHQ Score Initial Depression Screen Score: 0 SCORE Constitutional: Denies fevers, chills or general sense of illness Head/Ears/Nose/Throat : Denies sore throat. See HPI above Respiratory: Denies shortness of breath Physical Exam Vitals & Measurements T: 36.5 ?C(Oral) HR: 90(Peripheral) BP: 130/84 SpO2: 98% HT: 71 in HT: 180 cm WT: 130 kg WT: 286 lb BMI: 40.12 Primary assessment: Airway patent. Respirations unlabored. Normal respiratory effort Constitutional: Vital signs reviewed. Well appearing. No distress. Skin: Warm and dry. HENT: There is a white coating located on the posterior dorsal tongue which is easily scraped away with a tongue blade. There is some raised small papules also visible. Posterior pharynx is clear. Negative cervical lymphadenopathy. Thorax/ Respiratory: Respiratory effort non-labored. Musculoskeletal: Neck supple Neurologic: Alert and oriented Assessment/Plan 1. Oral thrush (B37.0: Candidal stomatitis) Ordered: nystatin, 500,000 unit(s) = 5 mL, Oral, q6hr, swish and swallow QID x7-10 days. Leave in the mouth as long as possible, # 200 mL, Refills(s) 0, Pharmacy: [facility], 180, cm, 11/06/23 12:08:00 EDT, Height/Length Dosing, 130, kg, 11/06/23 12:08:00 ED... -I believe this may be thrush and will treated with nystatin 500,000 units swish and swallow 4 times daily for 7 to 10 days. I advised him if this does not appear to be improving in the next 4 to 5 days to follow-up with his dentist for a more thorough oral evaluation. Follow-up No qualifying data available Problem List/Past Medical History Ongoing Asthma Generalized abdominal pain Ileitis Nausea and vomiting Right otitis media Smoker Historical Abdominal pain Procedure/Surgical History Colonoscopy (04/21/2022), EGD (esophagogastroduoden oscopy) gastric outlet reduction (04/21/2022), Colonoscopy, EGD - Esophagogastroduodeno scopy. Medications nystatin 100,000 units/mL Oral Susp, 783705 unit(s)= 5 mL, Oral, q6hr Allergies Clindagel (Swelling) Ventolin HFA albuterol (Unknown) clindamycin (Rash) Social History Alcohol - Denies Alcohol Use, 09/30/2019 Current, 11/24/2020 Current, 05/26/2019 Current, 03/29/2018 Substance Abuse - Denies Substance Abuse, 09/30/2019 Current, 11/24/2020 Current, 05/26/2019 Current, 03/29/2018 Tobacco - Medium Risk, 11/06/2022 Never (less than 100 in lifetime) Tobacco Use:. Never Smokeless Tobacco Use:., 11/06/2023 4 or less cigarettes(less than 1/4 pack)/day in last 30 days, Former smoker, quit more than 30 days ago, Pt smokes occasionally Tobacco Use:. Never Smokeless Tobacco Use:. Cigars, Ready to change: No. Household tobacco concerns: No. Yes, 05/07/2023 Never (less than 100 in lifetime), Cigars or pipes but not daily within last 30 days Tobacco Use:. Never Smokeless Tobacco Use:., 01/16/2023 Never (less than 100 in lifetime) Tobacco Use:. Never Smokeless Tobacco Use:., 05/13/2022 Never (less than 100 in lifetime) Tobacco Use:., 05/26/2019 Family History Crohn's disease: Uncle. Immunizations Vaccine Date Status Comments influenza virus vaccine, inactivated - Not Given Current Acute Illness Moderate to Severe diphtheria/pertussis, acel/tetanus adult 11/06/2022 Given influenza virus vaccine, inactivated - Not Given Patient Refuses influenza virus vaccine, inactivated - Not Given Patient Refuses SARSCoV2 mRNA(rita brown) vac 08/26/2021 Recorded SARSCoV2 mRNA(xvlavtxlj-mzww-y aldoros) vac 08/05/2021 Recorded poliovirus vaccine, inactivated 05/01/2007 Recorded measles/mumps/rubella /varicella vaccine 12/27/2006 Recorded haemophilus b conjugate (PRP-T) vaccine 12/27/2006 Recorded DTaP, unspecified formulation 12/27/2006 Recorded haemophilus b conjugate (PRP-T) vaccine 08/29/2003 Recorded diphtheria/pertussis, acel/tetanus ped 08/29/2003 Recorded varicella virus vaccine 05/01/2003 Recorded measles/mumps/rubella virus vaccine 05/01/2003 Recorded hepatitis B pediatric vaccine 02/26/2003 Recorded Hib, unspecified formulation 02/26/2003 Recorded DTaP, unspecified formulation 02/26/2003 Recorded hepatitis B pedia (more content not included)... Normal [facility] Comment on above: Result Comment: Elec tronically Signed By: Jordin TAVAREZ, Osbaldo De Los Santos\.br\Date and Time Signed: 11/06/23 12:29 EDT MICRO OTHER TESTSOrdered By: Bandar Forte on 03-29-2023 S. pyogenes Ag IA.rapid Ql (Throat) Negative (03/29/23 2:31 AM) Normal Negative [facility] SEROLOGYOrdered By: Bandar mckeon on 03-29-2023 Heterophile Ab LA Ql (S) Positive *ABN* (03/29/23 2:30 AM) Invalid Interpretation Code Negative [facility] CHEMISTRYOrdered By: SYSTEM SYSTEM on 05-04-2022 Anion gap [Moles/Vol] 14 mmol/L Normal 6 - 16 mEq/L [facility] Calcium [Mass/Vol] 9.1 mg/dL Normal 8.9 - 11. 1 mg/dL [facility] Chloride [Moles/Vol] 104 mmol/L Normal 101 - 1 11 mmol/L [facility] CO2 [Moles/Vol] 24 mmol/L Normal 21 - 31 mmol/L [facility] Creatinine [Mass/Vol] 1.0 mg/dL Normal 0.5 - 1.3 mg/dL [facility] GFR/1.73 sq M.predicted among blacks MDRD (S/P/Bld) [Vol rate/Area] mL/min/1.73 m2 Normal >=59mL/min/1 .73 m2 [facility] [place] Chem S GFR/1.73 sq M.predicted among non-blacks MDRD (S/P/Bld) [Vol rate/Area] mL/min/1.73 m2 Normal >=59mL/min/1 .73 m2 [facility] [place] Chem S Glucose [Mass/Vol] 100 mg/dL Normal 55 - 199 mg/dL [facility] Magnesium [Mass/Vol] 1.8 mg/dL Normal 1.3 - 2 .4 mg/dL [facility] Potassium [Moles/Vol] 3.7 mmol/L Normal 3.5 - 5.3 mmol/L [facility] Sodium [Moles/Vol] 138 mmol/L Normal 135 - 145 mmol/L [facility] [place] [facility] Troponin I.cardiac [Mass/Vol] pg/mL Low 15.90 - 38.40 pg/mL [facility] [place] [facility] TSH Qn 2.69 m[IU]/L Normal 0.34 - 5.60 mcIU/mL [facility] [place] [facility] Urea nitrogen [Mass/Vol] 14 mg/dL Normal 5 - 21 mg/dL [facility] [place] [facility] Urea nitrogen/Creatinine [Mass ratio] 14 mg/mg Normal 10 - 20 [facility] CHEMISTRYOrdered By: Bandar henry on 05-04-2022 Natriuretic peptide B (Bld) [Mass/Vol] 5 pg/mL Normal 5 - 80 pg/mL [facility] [place] [facility]SS COAGULATIONOrdered By: Bandar Forte on 05-04-2022 [...] Normal 0.0 - 8.0 % [facility] Eosinophils/Leukocytes Auto (Bld) [Pure # fraction] 0.1 E9/L Normal 0.0 - 0.5 E9/L [facility] Lymphocytes/100 WBC (Bld) 20.7 % Normal 14.0 - 50.0 % [facility] Lymphocytes/Leukocytes Auto (Bld) [Pure # fraction] 2.4 E9/L Normal 1.0 - 4.0 E9/L [facility] Monocytes/100 WBC (Bld) 7.8 % Normal 4.0 - 14.0 % [facility] Monocytes/Leukocytes Auto (Bld) [Pure # fraction] 0.9 E9/L Normal 0.2 - 1.0 E9/L [facility] Neutrophils/100 WBC (Bld) 69.2 % Normal 36.0 - 75.0 % [facility] Neutrophils/Leukocytes Auto (Bld) [Pure # fraction] 8.1 E9/L High 2.0 - 7.5 E9/L [facility] HEMATOLOGYOrdered By: Bandar Forte on 05-04-2022 Erythrocyte distribution width (RBC) [Ratio] 12.9 % Normal 10.9 - 14.2 % [facility] Hematocrit (Bld) [Volume fraction] 51.1 % High 37.7 - 49.0 % [facility] Hemoglobin (Bld) [Mass/Vol] 17.3 g/dL Normal 13.5 - 17.5 gm/dL [facility] MCH (RBC) [Entitic mass] 29.5 pg Normal 27.0 - 34.0 pg [facility] MCHC (RBC) [Mass/Vol] 33.9 g/dL Normal 31.4 - 36.0 gm/dL [facility] MCV (RBC) [Entitic vol] 87.1 fL Normal 80.0 - 100.0 fL [facility] Platelet mean volume (Bld) [Entitic vol] 8.8 fL Normal 6.4 - 10.8 fL [facility] Platelets (Bld) [#/Vol] 271.0 E9/L Normal 150.0 - 500.0 E9/L [facility] RBC (Bld) [#/Vol] 5.9 E12/L Normal 4.3 - 5.9 E12/L [facility] WBC corrected for nucl RBC Auto (Bld) [#/Vol] 11.7 E9/L High 4.0 - 11.0 E9/L [facility] [place] [facility] CHEMISTRYOrdered By: SYSTEM SYSTEM on 04-07-2022 Anion gap [Moles/Vol] 12 mmol/L Normal 6 - 16 mEq/L [facility] [place] Remisol Calcium [Mass/Vol] 9.1 mg/dL Normal 8.9 - 11. 1 mg/dL [facility] Chloride [Moles/Vol] 102 mmol/L Normal 101 - 1 11 mmol/L [facility] CO2 [Moles/Vol] 23 mmol/L Normal 21 - 31 mmol/L [facility] Creatinine [Mass/Vol] 0.8 mg/dL Normal 0.5 - 1.3 mg/dL [facility] [place] [facility] GFR/1.73 sq M.predicted among blacks MDRD (S/P/Bld) [Vol rate/Area] mL/min/1.73 m2 Normal >=59mL/min/1 .73 m2 [facility] [place] Chem S GFR/1.73 sq M.predicted among non-blacks MDRD (S/P/Bld) [Vol rate/Area] mL/min/1.73 m2 Normal >=59mL/min/1 .73 m2 [facility] [place] Chem S Glucose [Mass/Vol] 94 mg/dL Normal 55 - 199 mg/dL [facility] Potassium [Moles/Vol] 4.3 mmol/L Normal 3.5 - 5.3 mmol/L [facility] Sodium [Moles/Vol] 133 mmol/L Low [...] Normal 0.0 - 8.0 % [facility] Eosinophils/Leukocytes Auto (Bld) [Pure # fraction] 0.2 E9/L Normal 0.0 - 0.5 E9/L [facility] Lymphocytes/100 WBC (Bld) 19.1 % Normal 14.0 - 50.0 % [facility] Lymphocytes/Leukocytes Auto (Bld) [Pure # fraction] 2.4 E9/L Normal 1.0 - 4.0 E9/L [facility] Monocytes/100 WBC (Bld) 6.2 % Normal 4.0 - 14.0 % [facility] Monocytes/Leukocytes Auto (Bld) [Pure # fraction] 0.8 E9/L Normal 0.2 - 1.0 E9/L [facility] Neutrophils/100 WBC (Bld) 72.3 % Normal 36.0 - 75.0 % [facility] Neutrophils/Leukocytes Auto (Bld) [Pure # fraction] 9.3 E9/L High 2.0 - 7.5 E9/L [facility] HEMATOLOGYOrdered By: Jose R Ramesh on 04-07-2022 Erythrocyte distribution width (RBC) [Ratio] [...] 6.0 E12/L High 4.3 - 5.9 E12/L [facility] WBC corrected for nucl RBC Auto (Bld) [#/Vol] 12.8 E9/L High 4.0 - 11.0 E9/L [facility] SEROLOGYOrdered By: Devon For ster on 04-07-2022 Heterophile Ab LA Ql (S) Positive *ABN* (04/07/22 7:58 PM) Invalid Interpretation Code Negative [facility] CHEMISTRYOrdered By: SYSTEM SYSTEM on 03-29-2022 Albumin [Mass/Vol] 4.4 g/dL Normal 3.3 - 5.0 gm/dL [facility] Albumin/Globulin [Mass ratio] 1.3 {ratio} Normal 1.1 - 2.2 [facility] ALP [Catalytic activity/Vol] 89 [iU]/d Normal 21 - 98 Int._Unit/L [facility] ALT No additional P-5'-P [Catalytic activity/Vol] 51 [iU]/d High 6 - 46 Int._Unit/L [facility] Anion gap [Moles/Vol] 11 mmol/L Normal 6 - 16 mEq/L [facility] AST [Catalytic activity/Vol] 28 [iU]/d Normal 5 - 43 Int._Unit/L [facility] Bilirubin [Mass/Vol] 1.1 mg/dL Normal 0.0 - 1 .1 mg/dL [facility] Bilirubin.direct [Mass/Vol] 0.3 mg/dL Normal 0.1 - 0.4 mg/dL [facility] Bilirubin.indirect [Mass or moles/Vol] 0.8 mg/dL Normal 0.1 - 0.9 mg/dL [facility] Calcium [Mass/Vol] 9.2 mg/dL Normal 8.9 - 11. 1 mg/dL [facility] Chloride [Moles/Vol] 104 mmol/L Normal 101 - 1 11 mmol/L [facility] CO2 [Moles/Vol] 26 mmol/L Normal 21 - 31 mmol/L [facility] Creatinine [Mass/Vol] 0.8 mg/dL Normal 0.5 - 1.3 mg/dL [facility] GFR/1.73 sq M.predicted among blacks MDRD (S/P/Bld) [Vol rate/Area] mL/min/1.73 m2 Normal >=59mL/min/1 .73 m2 [facility] Chem S GFR/1.73 sq M.predicted among non-blacks MDRD (S/P/Bld) [Vol rate/Area] mL/min/1.73 m2 Normal >=59mL/min/1 .73 m2 [facility] [place] Chem S Globulin (S) [Mass/Vol] 3.3 g/dL Normal 1.4 - 4.0 gm/dL [facility] Glucose [Mass/Vol] 103 mg/dL Normal 55 - 199 mg/dL [facility] Lipase [Catalytic activity/Vol] 23 U/L Normal 13 - 58 unit/L [facility] Potassium [Moles/Vol] 3.7 mmol/L Normal 3.5 - 5.3 mmol/L [facility] Protein [Mass/Vol] 7.7 g/dL Normal 6.0 - 7.8 gm/dL [facility] Sodium [Moles/Vol] 137 mmol/L Normal 135 - 145 mmol/L [facility] Urea nitrogen [Mass/Vol] 9 mg/dL Normal [...] Normal 0.0 - 8.0 % [facility] Eosinophils/Leukocytes Auto (Bld) [Pure # fraction] 0.2 E9/L Normal 0.0 - 0.5 E9/L [facility] Lymphocytes/100 WBC (Bld) 23.9 % Normal 14.0 - 50.0 % [facility] Lymphocytes/Leukocytes Auto (Bld) [Pure # fraction] 2.7 E9/L Normal 1.0 - 4.0 E9/L [facility] Monocytes/100 WBC (Bld) 8.3 % Normal 4.0 - 14.0 % [facility] Monocytes/Leukocytes Auto (Bld) [Pure # fraction] 0.9 E9/L Normal 0.2 - 1.0 E9/L [facility] Neutrophils/100 WBC (Bld) 65.2 % Normal 36.0 - 75.0 % [facility] Neutrophils/Leukocytes Auto (Bld) [Pure # fraction] 7.4 E9/L Normal 2.0 - 7.5 E9/L [facility] HEMATOLOGYOrdered By: Bandar Forte on 03-29-2022 Erythrocyte distribution width (RBC) [Ratio] 13.1 % Normal 10.9 - 14.2 % [facility] Hematocrit (Bld) [Volume fraction] 52.2 % High 37.7 - 49.0 % [facility] Hemoglobin (Bld) [Mass/Vol] 17.5 g/dL Normal [...] 5.9 E12/L Normal 4.3 - 5.9 E12/L [facility] WBC corrected for nucl RBC Auto (Bld) [#/Vol] 11.4 E9/L High 4.0 - 11.0 E9/L [facility] URINALYSISOrdered By: Bandar Forte on 03-29-2022 [...] AM) Normal Negative [facility] UA Auto SS [place].plasma/[place] .RBC (Bld) [Mass ratio] 0-3 /HPF Normal 0-3/HPF [facility]A Auto SS Nitrite Ql (U) Negative (03/29/22 2:54 AM) Normal Negative [facility]A Auto SS pH (U) 6.0 *NA* (03/29/22 2:54 AM) Invalid Interpretation Code 5.0 - 9.0 [facility]A Auto SS Protein (U) [Mass/Vol] Negative (03/29/22 2:54 AM) Normal Negative [facility]A Auto SS Specific gravity (U) [Rel density] 1.025 *NA* (03/29/22 2:54 AM) Invalid Interpretation Code 1.005 - 1.030 [facility]A Auto SS UA Spec Desc Clean Catch (03/29/22 2:54 AM) Normal [facility]A Auto SS Urobilinogen Qn (U) [id number] {Trish'U}/dL Normal 0.0 - 1.0 EU/dL [facility]A Auto SS WBC Auto Ql (U) Negative (03/29/22 2:54 AM) Normal Negative [facility]A Auto SS WBC LM.HPF (Urine sed) [#/Area] 0-5 /HPF Normal 0-5/HPF [facility] SS CHEMISTRYOrdered By: SYSTEM SYSTEM on 03-21-2022 Anion gap [Moles/Vol] 11 mmol/L Normal 6 - 16 mEq/L [facility] Calcium [Mass/Vol] 9.3 mg/dL Normal 8.9 - 11. 1 mg/dL [facility] Chloride [Moles/Vol] 101 mmol/L Normal 101 - 1 11 mmol/L [facility] CO2 [Moles/Vol] 29 mmol/L Normal 21 - 31 mmol/L [facility] Creatinine [Mass/Vol] 0.9 mg/dL Normal 0.5 - 1.3 mg/dL [facility] GFR/1.73 sq M.predicted among blacks MDRD (S/P/Bld) [Vol rate/Area] mL/min/1.73 m2 Normal >=59mL/min/1 .73 m2 [facility] Chem S GFR/1.73 sq M.predicted among non-blacks MDRD (S/P/Bld) [Vol rate/Area] mL/min/1.73 m2 Normal >=59mL/min/1 .73 m2 [facility] [place] Chem S Glucose [Mass/Vol] 108 mg/dL Normal 55 - 199 mg/dL [facility] Potassium [Moles/Vol] 4.3 mmol/L Normal 3.5 - 5.3 mmol/L [facility] Sodium [Moles/Vol] 137 mmol/L Normal 135 - 145 mmol/L [facility] Troponin I.cardiac [Mass/Vol] 2.40 pg/mL Low 15.90 - 38.40 pg/mL [facility] Urea nitrogen [Mass/Vol] 12 mg/dL Normal 5 - 21 mg/dL [facility] Urea nitrogen/Creatinine [Mass ratio] 13 mg/mg Normal 10 - 20 [facility] HEMATOLOGYOrdered By: SYSTEM SYSTEM on 03-21-2022 Basophils/100 WBC (Bld) 0.7 % Normal 0.0 - 2.0 % [facility] Basophils/Leukocytes Auto (Bld) [Pure # fraction] 0.1 E9/L Normal 0.0 - 0.2 E9/L [facility] Eosinophils/100 WBC (Bld) 2.7 % Normal 0.0 - 8.0 % [facility] Eosinophils/Leukocytes Auto (Bld) [Pure # fraction] 0.3 E9/L Normal 0.0 - 0.5 E9/L [facility] Lymphocytes/100 WBC (Bld) 27.5 % Normal 14.0 - 50.0 % [facility] Lymphocytes/Leukocytes Auto (Bld) [Pure # fraction] 2.9 E9/L Normal 1.0 - 4.0 E9/L [facility] Monocytes/100 WBC (Bld) 8.9 % Normal 4.0 - 14.0 % [facility] Monocytes/Leukocytes Auto (Bld) [Pure # fraction] 0.9 E9/L Normal 0.2 - 1.0 E9/L [facility] Neutrophils/100 WBC (Bld) 60.2 % Normal 36.0 - 75.0 % [facility] Neutrophils/Leukocytes Auto (Bld) [Pure # fraction] 6.2 E9/L Normal 2.0 - 7.5 E9/L [facility] HEMATOLOGYOrdered By: Bandar Forte on 03-21-2022 Erythrocyte distribution width (RBC) [Ratio] 13.0 % Normal 10.9 - 14.2 % [facility] Hematocrit (Bld) [Volume fraction] 49.4 % High 37.7 - 49.0 % [facility] Hemoglobin (Bld) [Mass/Vol] 16.8 g/dL Normal 13.5 - 17.5 gm/dL [facility] MCH (RBC) [Entitic mass] 30.0 pg Normal 27.0 - 34.0 pg [facility] MCHC (RBC) [Mass/Vol] 34.0 g/dL Normal 31.4 - 36.0 gm/dL [facility] MCV (RBC) [Entitic vol] 88.0 fL Normal 80.0 - 100.0 fL [facility] Platelet mean volume (Bld) [Entitic vol] 8.9 fL Normal 6.4 - 10.8 fL [facility] Platelets (Bld) [#/Vol] 253.0 E9/L Normal 150.0 - 500.0 E9/L [facility] RBC (Bld) [#/Vol] 5.6 E12/L Normal 4.3 - 5.9 E12/L [facility] WBC corrected for nucl RBC Auto (Bld) [#/Vol] 10.4 E9/L Normal 4.0 - 11.0 E9/L [facility] Vital Signs Date Time Vital Sign Value Performing Clinician Facility 05-30-2024 21:42-0400 Body temperature 98.24 [degF] Hannah Jarrett [facility] 05-30-2024 21:42-0400 Diastolic blood pressure 79 mm[Hg] Jeannen Dokken [facility] 05-30-2024 21:42-0400 Heart rate 92 /min lillian Jarrett [facility] 05-30-2024 21:42-0400 Respiratory rate 16 /min lillian Jarrett [facility] 05-30-2024 21:42-0400 SaO2% (BldA) [Mass fraction] 98 % [facility] 05-30-2024 21:42-0400 Systolic blood pressure 101 mm[Hg[facility] 12-02-2023 11:07-0400 Body height 173.35 cm [facility] 12-02-2023 11:07-0400 Body mass index (BMI) [Ratio] 43.1 kg/m2 [facility] 12-02-2023 11:07-0400 Body weight 129.52 kg [facility] 12-02-2023 11:07-0400 Diastolic blood pressure 94 mm[Hg] [facility] 12-02-2023 11:07-0400 Heart rate 85 /min [facility] 12-02-2023 11:07-0400 Respiratory rate 12 /min [facility] 12-02-2023 11:07-0400 Systolic blood pressure 135 mm[Hg] [facility] 11-30-2023 15:01-0400 Body height 173.35 cm [facility] 11-30-2023 15:01-0400 Body mass index (BMI) [Ratio] 43.1 kg/m2 [facility] 11-30-2023 15:01-0400 Body temperature 97.9 [degF] [facility] 11-30-2023 15:01-0400 Body weight 129.72 kg [facility] 11-30-2023 15:01-0400 Heart rate 70 /min [facility] 11-30-2023 15:01-0400 SaO2% (BldA) [Mass fraction] 97 % [facility] 11-24-2023 09:29-0400 Body height 173.35 cm [facility] 11-24-2023 09:29-0400 Body mass index (BMI) [Ratio] 31.2 kg/m2 [facility] 11-24-2023 09:29-0400 Body weight 93.89 kg [facility] 11-24-2023 09:29-0400 Diastolic blood pressure 84 mm[Hg] [facility] 11-24-2023 09:29-0400 Heart rate 77 /min [facility] 11-24-2023 09:29-0400 SaO2% (BldA) [Mass fraction] 98 % [facility] 11-24-2023 09:29-0400 Systolic blood pressure 116 mm[Hg] [facility] 11-06-2023 12:07-0400 Blood Pressure Location Osbaldo Brenner [facility] 11-06-2023 12:07-0400 Body temperature 97.7 [degF] Osbaldo [facility] 11-06-2023 12:07-0400 Diastolic blood pressure 84 mm[Hg] Osbaldo [facility] 11-06-2023 12:07-0400 Heart rate 90 /min Osbaldo [facility] 11-06-2023 12:07-0400 SaO2% (BldA) [Mass fraction] 98 % Osbaldo Brenner [facility] 11-06-2023 12:07-0400 Systolic blood pressure 130 mm[Hg] Osbaldo J[facility] 03-29-2023 03:00-0400 Diastolic blood pressure 81 mm[Hg] Jreemy Gaby [facility] 03-29-2023 03:00-0400 Respiratory rate 18 /min Jeremy Gaby [facility] 03-29-2023 03:00-0400 SaO2% (BldA) [Mass fraction] 98 % Jeremy Gaby [facility] 03-29-2023 03:00-0400 Systolic blood pressure 126 mm[Hg] Jeremy Gaby [facility] 03-29-2023 02:08-0400 Body temperature 97.7 [degF] Jeremy Gaby [facility] 03-29-2023 02:08-0400 Diastolic blood pressure 101 mm[Hg] Jeremy Gaby [facility] 03-29-2023 02:08-0400 Heart rate 80 /min Jeremy Gaby [facility] 03-29-2023 02:08-0400 Respiratory rate 16 /min Jeremy Gaby [facility] 03-29-2023 02:08-0400 SaO2% (BldA) [Mass fraction] 99 % Jeremy Gaby [facility] 03-29-2023 02:08-0400 Systolic blood pressure 152 mm[Hg] Jeremy Gaby [facility] 01-16-2023 13:27-0400 Blood Pressure Location Srikanth Reid [facility] 01-16-2023 13:27-0400 Diastolic blood pressure 80 mm[Hg] Srikanth [facility] 01-16-2023 13:27-0400 Heart rate 75 /min Srikanth [facility]ws [facility] 01-16-2023 13:27-0400 SaO2% (BldA) [Mass fraction] 98 % Srikanth [facility]ws [facility] 01-16-2023 13:27-0400 Systolic blood pressure 112 mm[Hg] Srikanth [facility]ws [facility] 11-10-2022 09:24-0400 Diastolic blood pressure 86 mm[Hg] Tate SALAM [facility] 11-10-2022 09:24-0400 Heart rate 79 /min Tate SALAM [facility] 11-10-2022 09:24-0400 Respiratory rate 16 /min Tate SALAM [facility] 11-10-2022 09:24-0400 Systolic blood pressure 140 mm[Hg] Tate SALAM [facility] 05-13-2022 13:52-0400 Diastolic blood pressure 92 mm[Hg] Tate SALAM [facility] 05-13-2022 13:52-0400 Mean blood pressure 107 mm[Hg] Tate SALAM [facility] 05-13-2022 13:52-0400 Systolic blood pressure 137 mm[Hg] Tate SALAM [facility] 05-13-2022 13:51-0400 Blood Pressure Location Tate SALAM [facility] 05-13-2022 13:51-0400 Diastolic blood pressure 97 mm[Hg] Tate SALAM [facility] 05-13-2022 13:51-0400 Heart rate 80 /min Tate SALAM [facility] 05-13-2022 13:51-0400 Respiratory rate 16 /min Tate SALAM [facility] 05-13-2022 13:51-0400 Systolic blood pressure 136 mm[Hg] Tate SALAM [facility] 05-04-2022 02:49-0400 Diastolic blood pressure 90 mm[Hg] [facility] 05-04-2022 02:49-0400 Heart rate 96 /min [facility] 05-04-2022 02:49-0400 Mean blood pressure 103 mm[Hg] [facility] 05-04-2022 02:49-0400 Respiratory rate 18 /min [facility] 05-04-2022 02:49-0400 SaO2% (BldA) [Mass fraction] 95 % [facility] 05-04-2022 02:49-0400 Systolic blood pressure 129 mm[Hg] [facility] 05-04-2022 02:19-0400 Diastolic blood pressure 93 mm[Hg] [facility] 05-04-2022 02:19-0400 Heart rate 84 /min [facility] 05-04-2022 02:19-0400 Mean blood pressure 107 mm[Hg] [facility] 05-04-2022 02:19-0400 Respiratory rate 16 /min [facility] 05-04-2022 02:19-0400 SaO2% (BldA) [Mass fraction] 96 % [facility] 05-04-2022 02:19-0400 Systolic blood pressure 135 mm[Hg] [facility] 05-04-2022 02:09-0400 Hourly Rounding [facility] 05-04-2022 02:09-0400 Promise to Return [facility] 05-04-2022 01:48-0400 Diastolic blood pressure 91 mm[Hg] [facility] 05-04-2022 01:48-0400 Heart rate 91 /min [facility] 05-04-2022 01:48-0400 Mean blood pressure 106 mm[Hg] [facility] 05-04-2022 01:48-0400 Respiratory rate 18 /min [facility] 05-04-2022 01:48-0400 SaO2% (BldA) [Mass fraction] 96 % [facility] 05-04-2022 01:48-0400 Systolic blood pressure 136 mm[Hg] [facility] 05-04-2022 00:06-0400 Body temperature 98.24 [degF] [facility] 05-04-2022 00:06-0400 Heart rate 112 /min [facility] 04-21-2022 15:15-0400 Blood Pressure Location [employer] [facility] 04-21-2022 15:15-0400 Diastolic blood pressure 76 mm[Hg] [employer] [facility] 04-21-2022 15:15-0400 Heart rate 84 /min Tate WhisherAM [facility] 04-21-2022 15:15-0400 Respiratory rate 15 /min [employer] [facility] 04-21-2022 15:15-0400 SaO2% (BldA) [Mass fraction] 98 % Tate SALAM [facility] 04-21-2022 15:15-0400 Systolic blood pressure 126 mm[Hg] Tate SALAM [facility] 04-21-2022 15:05-0400 Blood Pressure Location Tate SALAM [facility] 04-21-2022 15:05-0400 Diastolic blood pressure 70 mm[Hg] Tate SALAM [facility] 04-21-2022 15:05-0400 Heart rate 78 /min Tate SALAM [facility] 04-21-2022 15:05-0400 Respiratory rate 12 /min Tate SALAM [facility] 04-21-2022 15:05-0400 SaO2% (BldA) [Mass fraction] 98 % Tate SALAM [facility] 04-21-2022 15:05-0400 Systolic blood pressure 111 mm[Hg] Tate SALAM [facility] 04-21-2022 15:00-0400 Diastolic blood pressure 68 mm[Hg] Tate SALAM [facility] 04-21-2022 15:00-0400 Heart rate 91 /min Tate SALAM [facility] 04-21-2022 15:00-0400 Respiratory rate 14 /min Tate SALAM [facility] 04-21-2022 15:00-0400 SaO2% (BldA) [Mass fraction] 96 % Tate SALAM [facility] 04-21-2022 15:00-0400 Systolic blood pressure 110 mm[Hg] Tate SALAM [facility] 04-21-2022 14:49-0400 Body temperature 97.34 [degF] Tate SALAM [facility] 04-21-2022 14:45-0400 Respiratory rate 22 /min Tate SALAM [facility] 04-21-2022 14:40-0400 Respiratory rate 27 /min Tate SALAM [facility] 04-21-2022 14:35-0400 Respiratory rate 20 /min Tate SALAM [facility] 04-21-2022 13:57-0400 Body temperature 97.52 [degF] Tate SALAM [facility] 04-12-2022 09:30-0400 Blood Pressure Location Preciousdarryl SanchezMeli [facility] 04-12-2022 09:30-0400 Body temperature 97.34 [degF] Precious Sanchezmetz [facility] 04-12-2022 09:30-0400 Diastolic blood pressure 85 mm[Hg] Preciousdarryl SanchezMeil [facility] 04-12-2022 09:30-0400 Heart rate 82 /min Preciousdarryl SacnhezMeli [facility] 04-12-2022 09:30-0400 Systolic blood pressure 123 mm[Hg] Preciousdarryl SanchezMeli [facility] 04-07-2022 21:31-0400 Heart rate 78 /min [facility] 04-07-2022 21:31-0400 Respiratory rate 17 /min [facility] 04-07-2022 21:31-0400 SaO2% (BldA) [Mass fraction] 95 % [facility] 04-07-2022 19:44-0400 Diastolic blood pressure 91 mm[Hg] [facility] 04-07-2022 19:44-0400 Heart rate 80 /min [facility] 04-07-2022 19:44-0400 Mean blood pressure 108 mm[Hg] [facility] 04-07-2022 19:44-0400 Respiratory rate 16 /min [facility] 04-07-2022 19:44-0400 SaO2% (BldA) [Mass fraction] 97 % [facility] 04-07-2022 19:44-0400 Systolic blood pressure 143 mm[Hg] [facility] 04-07-2022 17:04-0400 Body temperature 98.42 [degF] [facility] 04-07-2022 17:04-0400 Diastolic blood pressure 91 mm[Hg] [facility] 04-07-2022 17:04-0400 Heart rate 98 /min [facility] 04-07-2022 17:04-0400 Respiratory rate 18 /min [facility] 04-07-2022 17:04-0400 SaO2% (BldA) [Mass fraction] 100 % [facility] 04-07-2022 17:04-0400 Systolic blood pressure 131 mm[Hg] [facility] 03-29-2022 04:45-0400 Body temperature 98.24 [degF] [employer] [facility] 03-29-2022 04:45-0400 Diastolic blood pressure 60 mm[Hg] [employer] [facility] 03-29-2022 04:45-0400 Heart rate 87 /min Jeremy Gaby [facility] 03-29-2022 04:45-0400 Mean blood pressure 80 mm[Hg] Jeremy Gaby [facility] 03-29-2022 04:45-0400 Respiratory rate 18 /min Jeremy Gaby [facility] 03-29-2022 04:45-0400 SaO2% (BldA) [Mass fraction] 98 % Jeremy Gaby [facility] 03-29-2022 04:45-0400 Systolic blood pressure 120 mm[Hg] Jeremy Gaby [facility] 03-29-2022 04:00-0400 Body temperature 98.6 [degF] Jeremy Gaby [facility] 03-29-2022 04:00-0400 Diastolic blood pressure 70 mm[Hg] Jeremy Gaby [facility] 03-29-2022 04:00-0400 Heart rate 86 /min Jeremy Gaby [facility] 03-29-2022 04:00-0400 Mean blood pressure 88 mm[Hg] Jeremy Gaby [facility] 03-29-2022 04:00-0400 Respiratory rate 17 /min Jeremy Gaby [facility] 03-29-2022 04:00-0400 SaO2% (BldA) [Mass fraction] 99 % Jeremy Gaby [facility] 03-29-2022 04:00-0400 Systolic blood pressure 125 mm[Hg] Jeremy Gaby [facility] 03-29-2022 03:00-0400 Diastolic blood pressure 88 mm[Hg] Jeremy Gaby [facility] 03-29-2022 03:00-0400 Heart rate 88 /min Jeremy Gaby [facility] 03-29-2022 03:00-0400 Mean blood pressure 99 mm[Hg] Jeremy Gaby [facility] 03-29-2022 03:00-0400 Systolic blood pressure 122 mm[Hg] Jeremy Gaby [facility] 03-21-2022 06:14-0400 Diastolic blood pressure 107 mm[Hg] Jeremy Gaby [facility] 03-21-2022 06:14-0400 Heart rate 107 /min Jeremy Gaby [facility] 03-21-2022 06:14-0400 Mean blood pressure 113 mm[Hg] Jeremy Gaby [facility] 03-21-2022 06:14-0400 SaO2% (BldA) [Mass fraction] 94 % Jeremy Gaby [facility] 03-21-2022 06:14-0400 Systolic blood pressure 126 mm[Hg] Jeremy Gaby [facility] 03-21-2022 04:13-0400 Diastolic blood pressure 77 mm[Hg] Jeremy Gaby [facility] 03-21-2022 04:13-0400 Heart rate 99 /min Jeremy Gaby [facility] 03-21-2022 04:13-0400 Mean blood pressure 97 mm[Hg] Jeremy Gaby [facility] 03-21-2022 04:13-0400 SaO2% (BldA) [Mass fraction] 95 % Jeremy Gaby [facility] 03-21-2022 04:13-0400 Systolic blood pressure 136 mm[Hg] Jeremy Gaby [facility] 03-21-2022 03:48-0400 Body temperature 98.06 [degF] Jeremy Gaby [facility] 03-21-2022 03:48-0400 Diastolic blood pressure 53 mm[Hg] Jeremy Gaby [facility] 03-21-2022 03:48-0400 Heart rate 83 /min Jeremy Gaby [facility] 03-21-2022 03:48-0400 Respiratory rate 30 /min Jeremy Gaby [facility] 03-21-2022 03:48-0400 SaO2% (BldA) [Mass fraction] 96 % Jeremy Gaby [facility] 03-21-2022 03:48-0400 Systolic blood pressure 99 mm[Hg] Jeremy Gaby [facility] 02-05-2022 15:38-0400 Body temperature 97.7 [degF] Rosa Orzech [facility] 02-05-2022 15:38-0400 Diastolic blood pressure 80 mm[Hg] Rosa Orzech [facility] 02-05-2022 15:38-0400 Heart rate 101 /min Rosa Orzech [facility] 02-05-2022 15:38-0400 SaO2% (BldA) [Mass fraction] 98 % Rosa Orzech [facility] 02-05-2022 15:38-0400 Systolic blood pressure 118 mm[Hg] Rosa Mays [facility] Encounters Encounter Date Encounter Type Care Provider Facility Start: 05-30-2024 End: 05-31-2024 Emergency department patient visit Hannah Jarrett [facility] Start: 12-06-2023 End: 12-06-2023 ambulatory [facility] Facility:[facility] Start: 12-06-2023 End: 12-06-2023 Patient encounter procedure [facility] Start: 12-02-2023 Patient encounter status [facility] Start: 12-02-2023 End: 12-02-2023 ambulatory [facility] Work Phone: Start: 12-02-2023 End: 12-02-2023 Patient encounter procedure [facility] Physician [facility] Work Phone: Start: 11-30-2023 End: 11-30-2023 Patient encounter procedure [facility] Physician [facility] Work Phone: Start: 11-24-2023 End: 11-24-2023 ambulatory [facility] Work Phone: Start: 11-24-2023 End: 11-24-2023 Patient encounter procedure [facility] Physician [facility] Work Phone: Start: 11-06-2023 End: 11-06-2023 ambulatory Osbaldo [facility]ner Facility: [facility] Start: 11-06-2023 End: 11-06-2023 Patient encounter procedure Osbaldo [facility] Start: 07-19-2023 End: 07-20-2023 ambulatory MEAGHAN IVY Not Available Start: 03-29-2023 End: 03-29-2023 Emergency department patient visit Jeremy SBonifacio Griffin [facility] Start: 01-16-2023 End: 01-16-2023 Patient encounter procedure Srikanth Casper Mathews [facility] Start: 11-10-2022 End: 11-10-2022 Patient encounter procedure Tate SALAM [facility] Start: 11-09-2022 End: 11-09-2022 Lab Drop off Tateliana PUENTEAM [facility] Start: 05-13-2022 End: 05-13-2022 Patient encounter procedure Tate SALAM [facility] Start: 05-04-2022 End: 05-04-2022 Emergency department patient visit Asmita Linares [facility] Start: 04-21-2022 End: 04-21-2022 Patient encounter procedure Tate SALAM [facility] Start: 04-12-2022 End: 04-12-2022 Patient encounter procedure Precious Garrison [facility] Start: 04-07-2022 End: 04-07-2022 Emergency department patient visit Asmita Linares [facility] Start: 03-29-2022 End: 03-29-2022 Emergency department patient visit Jeremy Griffin [facility] Start: 03-21-2022 End: 03-21-2022 Emergency department patient visit Jeremy Griffin [facility] Start: 02-05-2022 End: 02-05-2022 Patient encounter procedure Rosa X Orzech [facility] Procedures Date Procedure Procedure Detail Performing Clinician Start: 11-30-2023 Quick Strep (POC) Start: 04-21-2022 Colonoscopy [employer] Start: 04-21-2022 Esophagogastroduodenoscopy gastric outlet reduction Tate WhisherAM Colonoscopy Precious Meli Esophagogastroduodenoscopy Winifred Sanchezmetz Plan of Treatment Date Care Activity Detail Author Comprehensive metabo lic 2000 panel - Serum or Plasma [facility] enter [facility] Immunizations Immunization Date Immunization Notes Care Provider Fa cility 11-06-2022 tetanus toxoid, reduced diphtheria toxoid, and acellular pertussis vaccine, adsorbed [employer] [facility] 08-26-2021 SARS-CoV-2 mRNA (brrmfwhevjr-mqyu-jqd luigi) vaccine Tate SALAM [facility] 08-05-2021 SARS-CoV-2 mRNA (yeofyezzgaz-nvix-qlo luigi) vaccine Tate SALAM [facility] 05-01-2007 poliovirus vaccine, unspecified formulation [employer] [facility] 12-27-2006 DTaP, unspecified formulation [employer] [facility] 12-27-2006 haemophilus influenzae type b vaccine, PRP-T conjugate Tate SALAM [facility] 12-27-2006 measles, mumps, rubella, and varicella virus vaccine Tate SALAM [facility] 08-29-2003 diphtheria, tetanus toxoids and acellular pertussis vaccine Tate SALAM [facility] 08-29-2003 haemophilus influenzae type b vaccine, PRP-T conjugate Tate SALAM [facility] 05-01-2003 measles, mumps and rubella virus vaccine Tate SALAM [facility] 05-01-2003 varicella virus vaccine Tate SALAM [facility] 02-26-2003 DTaP, unspecified formulation Tate SALAM [facility] 02-26-2003 hepatitis B vaccine, pediatric or pediatric/adolescent dosage Tate SAL[employer] [facility] 02-26-2003 Hib, unspecified formulation Tate SALAM [facility] 09-26-2002 DTaP, unspecified formulation Tate SALAM [facility] 09-26-2002 hepatitis B vaccine, pediatric or pediatric/adolescent dosage Tate SALAM [facility] 09-26-2002 Hib, unspecified formulation Tate SALAM [facility] 04-09-2002 DTaP, unspecified formulation Tate SALAM [facility] 04-09-2002 hepatitis B vaccine, pediatric or pediatric/adolescent dosage Tate SALAM [facility] 04-09-2002 Hib, unspecified formulation Bebeto PUENTEAM [facility] 2001 hepatitis B vaccine, pediatric or pediatric/adolescent dosage Tate SALAM [facility] NEGATED: Highlighted row has not occurred!05-13-2022 influenza virus vaccine, unspecified formulation Bebeto GRANADO [facility] NEGATED: Highlighted row has not occurred!04-12-2022 influenza virus vaccine, unspecified formulation Precious Garrison [facility] Payers Date Payer Category Payer Medicaid [id number] 2001 Unknown [id number] 2001 Unknown [id number] 2001 Unknown [id number] 2001 Unknown [id number] 2001 Unknown [id number] Private Health Insurance [employer] [id number] Self-pay Self Pay [id number] Social History Date Type Detail Facility Start: 11-24-2020 End: 11-06-2023 Tobacco smoking status Never smoked tobacco (finding) [facility] Comment on above: marilee Sex Assigned At Male [facility] Tobacco smoking status Never [facility] Comment on above: marilee Start: 11-06-2022 Tobacco smoking status Light tobacco smoker (finding) [facility] Start: 11-10-2022 Tobacco smoking status Ex-smoker (finding) [facility] Tobacco smoking status Occasional tobacco smoker (finding) [facility] Start: 2000 Sex Assigned At Male [facility] Functional Status Date Assessment Result Facility 05-30-2024 Functional Status N/A [facility] 11-06-2023 Functional Status N/A [facility] 03-29-2023 Functional Status N/A [facility] 11-10-2022 Functional Status N/A [facility] 05-13-2022 Functional Status N/A [facility] 05-04-2022 Functional Status N/A [facility] 04-21-2022 Functional Status N/A [facility] 04-12-2022 Functional Status N/A [facility] 04-07-2022 Functional Status N/A [facility] 03-29-2022 Functional Status N/A [facility] 03-21-2022 Functional Status N/A [facility] 02-05-2022 Functional Status N/A [facility] Clinical Notes 02-05-2022 to 05-31-2024 Note Date & Type Note Facility 05-31-2024 Evaluation + Plan note Extrac anayeli from: Title:ED Note Author:Tesha TAVAREZ, Eh Qiu te:05/31/24 Infectious mononucleosis (B2 7.90: Infectious mononucleosis, unspecified without complication) Nausea & vomiting (R11.2: Nausea with vomiting, unspecified) Orders: dexamethasone, 10 mg = 1 mL, Injection, Oral, Once, Stop date 05/31/24 0:03:00 EDT, STAT, Start date 05/31/24 0:03:00 EDT, [facility]- max dose 12 mg, 05/31/24 0:03:00 EDT ondansetron, 4 mg = 1 tab(s), Tab-Dis, Oral, Once, Stop date 05/30/24 22:56:00 EDT, STAT, Start date 05/30/24 22:56:00 EDT, 05/30/24 22:56:00 EDT ondansetron, 4 mg = 1 tab(s), Oral, q6hr, # 12 tab(s), Refills(s) 0, Pharmacy: [facility], 180, cm, 05/30/24 21:46:00 EDT, Height/Length Dosing, 131, kg, 05/30/24 21:46:00 EDT, Weight Dosing Basic Metabolic Panel CBC w/ Auto Diff eGFR Group A Strep by PCR Hepatic Function Panel Lipase Level Mononucleosis Screen Rapid Strep w/rfx UA with Cult Rflx XR Chest Single View [facility] 10-31-2024 Hospital Discharge instructions Patient Education 05/31/2024 00:15:22 Infectious Mononucleosis Infectious Mononucleosis Infectious mononucleosis is [...] is commonly caused by the Lucero Olsen virus (EBV). This virus spreads through: Having contact with [...] occur at different times. Common symptoms include: Mild symptoms of this condition include: Headache. Muscle aches. Swollen glands. Poor appetite. Moderate symptoms of this condition include: Sore throat. Fever. Rash. Nausea Other symptoms may include: Extreme fatigue. Enlarged liver or spleen. Abdominal pain. How is this diagnosed? This condition may be diagnosed based on: Your medical history. Your symptoms. A physical exam. Blood tests to confirm the diagnosis. How is this treated? There is no cure for this condition. Infectious mononucleosis usually goes away on its own with time. Treatment can help relieve symptoms and may include: Drinking plenty of fluids. Getting a lot of rest. Taking medicines to relieve pain and fever. Medicine (corticosteroids) to reduce swelling. This may be used if swelling in the throat causes breathing or swallowing problems. In some severe cases, treatment may have to be given in a hospital. Follow these instructions at home: Medicines Take mvwa-jlx-mwkqrnu and prescription medicines only as told by your health care provider. Do not take the antibiotics ampicillin or amoxicillin. This may cause a rash. If you are under 18, do not take aspirin because of the association with Chanel's syndrome. Activity Rest as needed. Do not participate in any of the following activities until your health care provider approves: ?Exercise that requires a lot of energy. ?Heavy lifting. ?Contact sports. You may need to wait at least a month before participating in sports. Gradually resume your normal activities after your [...] a sore throat. ?Try sucking on hard candy or lozenges. Keep all follow-up visits. This is important. How is this prevented? Avoid contact with people who are infected with mononucleosis. An infected person may not always appear ill, but he or she can still spread the virus. Avoid sharing utensils, drinking glasses, or toothbrushes. Wash your hands frequently for at least 20 seconds with soap and water. If soap and water are not available, use hand town justice. Use the inside of your elbow to cover your mouth when coughing or sneezing. Where to find more information Centers for Disease Control and Prevention: www.cdc.gov Contact a health care provider if: Your fever is not gone after 10 days. You have swollen lymph nodes that are not back to normal after 4 weeks. Your activity level is not back to normal after 2 months. Your skin or the white parts of your eyes turn yellow (jaundice). You have constipation. You may have constipation if you are having: ?Fewer bowel movements in a week than normal. ?Difficulty passing stool. ?Stools that are dry, hard, or larger than normal. Get help right away if: You cannot stop vomiting. You are drooling or have trouble swallowing. You have signs of dehydration. These may include: ?Weakness. ?Pale skin. ?Sunken eyes or dry mouth. ?Rapid breathing or pulse. You have trouble breathing. You develop a stiff neck or a severe headache. You have severe pain in your abdomen or shoulder. You are confused or you have trouble with balance. You have jerky movements that you cannot control (seizures). Your nose or gums begin to bleed. Some of these symptoms may represent a serious problem that is an emergency. Do not wait to see if the symptoms will go away. Get medical help right away. Call your local emergency services (911 in the [place] Do not drive yourself to the hospital. Summary Infectious mononucleosis, or mono, is an [...] throat, headache, fever, swollen glands, muscle aches, and extreme fatigue. There is no cure for this condition. Treatment can help relieve symptoms and may include drinking plenty of fluids, getting a lot of rest, or taking medicines. This information is not intended to replace advice given to you by your health care provider. Make sure you discuss any questions you have with your health care provider. Document Revised: 07/03/2021 Document Reviewed: 07/03/2021 [employer] Patient Education 2022 [employer]. Follow Up Care 05/30/2024 21:40:48 With:RANDY MAURER Address: [facility] [place] [address]- Business (1) When:06/03/2024 [facility] 10-31-2024 NoteED Patient Education Note Infectious Disease Infectious Mononucleosis Infectious mononucleosis is a viral [...] serious, and it typically goes away in 2?4 weeks without treatment. In rare cases, symptoms can be more severe and last longer, sometimes up to several months. What are the causes? This condition is commonly caused by the Lucero?Olsne virus (EBV). This virus spreads through: ??? Having contact with an infected person's saliva or other bodily fluids, often through: ? Kissing. ? Sex. ? Coughing. ? Sneezing. ??? Sharing utensils or drinking glasses with an infected person. ??? Receiving blood from an infected donor (blood transfusion). ??? Receiving an organ from an infected donor (organ transplant). What increases the risk? You are more likely to develop this condition if: ??? You are 15?24 years old. What are the signs or symptoms? Symptoms of this condition usually appear 4?6 weeks after infection. Symptoms may develop slowly and occur at different times. Common symptoms include: Mild symptoms of this condition include: ??? Headache. ??? Muscle aches. ??? Swollen glands. ??? Poor appetite. Moderate symptoms of this condition include: ??? Sore throat. ??? Fever. ??? Rash. ??? Nausea Other symptoms may include: ??? Extreme fatigue. ??? Enlarged liver or spleen. ??? Abdominal pain. How is this diagnosed? This condition may be diagnosed based on: ??? Your medical history. ??? Your symptoms. ??? A physical exam. ??? Blood tests to confirm the diagnosis. How is this treated? There is no cure for this condition. Infectious mononucleosis usually goes away on its own with time. Treatment can help relieve symptoms and may include: ??? Drinking plenty of fluids. ??? Getting a lot of rest. ??? Taking medicines to relieve pain and fever. ??? Medicine (corticosteroids) to reduce swelling. This may be used if swelling in the throat causes breathing or swallowing problems. In some severe cases, treatment may have to be given in a hospital. Follow these instructions at home: Medicines ??? Take zbkm-fkb-uqizmxt and prescription medicines only as told by your health care provider. ??? Do not take the antibiotics ampicillin or amoxicillin. This may cause a rash. ??? If you are under 18, do not take aspirin because of the association with Chanel's syndrome. Activity ??? Rest as needed. ??? Do not participate in any of the following activities until your health care provider approves: ? Exercise that requires a lot of energy. ? Heavy lifting. ? Contact sports. You may need to wait at least a month before participating in sports. ??? Gradually resume your normal activities after your fever is gone, or when your health care provider tells you that you can. Be sure to rest when you get tired. General instructions ??? Avoid kissing or sharing utensils or drinking glasses until your health care provider tells youthat you are no longer contagious. ??? Drink enough fluid to keep your urine pale yellow. ??? Do not drink alcohol. ??? If you have a sore throat: ? Gargle with a salt-water mixture 3?4 times a day or as needed. To make a salt- water mixture, completely dissolve ??1 tsp (3?6 g) of salt in 1 cup (237 mL) of warm water. ? Eat soft foods. Cold foods such as ice cream or ice pops can soothe a sore throat. ? Try sucking on hard candy or lozenges. ??? Keep all follow-up visits. This is important. How is this prevented? Avoid contact with people who are infected with mononucleosis. An infected person may not always appear ill, but he or she can still spread the virus. ??? Avoid sharing utensils, drinking glasses, or toothbrushes. ??? Wash your hands frequently for at least 20 seconds with soap and water. If soap and water are not available, use hand town justice. ??? Use the inside of your elbow to cover your mouth when coughing or sneezing. Where to find more information Centers for Disease Control and Prevention: www.cdc.gov Contact a health care provider if: ??? Your fever is not gone after 10 days. ??? You have swollen lymph nodes that are not back to normal after 4 weeks. ??? Your activity level is not back to normal after 2 months. ??? Your skin or the white parts of your eyes turn yellow (jaundice). ??? You have constipation. You may have constipation if you are having: ? Fewer bowel movements in a week than normal. ? Difficulty passing stool. ? Stools that are dry, hard, or larger than normal. Get help right away if: ??? You cannot stop (more content not included)...[facility] 03-29-2023 Evaluation + Plan noteExtracted from: Title:ED Note Author:Jeremy Griffin DO Date :03/29/23 Acute pharyngitis (J02.9: Ac sydnie pharyngitis, unspecified) Orders: ondansetron, 4 mg = 1 tab(s), Tab-Dis, Oral, Once, Stop date 03/29/23 2:20:00 EDT, STAT, Start date 03/29/23 2:20:00 EDT, 03/29/23 2:20:00 EDT ondansetron, 4 mg = 1 tab(s), Oral, q8hr, PRN Nausea/Vomiting, # 16 tab(s), Refills(s) 0, Pharmacy: [facility], 180, cm, 03/29/23 2:12:00 EDT, Height/Length Dosing, 126.5, kg, 03/29/23 2:12:00 EDT, Weight Dosing Group A Strep by PCR Mononucleosis Screen Rapid Strep w/rfx Future Scheduled Tests Laboratory* Calprotectin, Fecal 04/28/22 * Sedimentation Rate Automated 04/28/22 * C-Reactive Protein 04/28/22 [facility]08-29-2023 Hospital Discharge instructions Patient Education 03/29/2023 03:10:53 [...] Follow these instructions at home: Medicines Take akzi-gpy-wgtwbjp and prescription medicines only as told by [...] and water are not available, use hand town justice. Do not touch your eyes, nose, or [...] provider. Document Revised: 10/14/2021 Document Reviewed: 10/14/2021 [employer] Patient Education 2022 [employer]. Follow Up Care 03/29/2023 02:04:14 With:RANDY MAURER Address: [address] [place] [phone]- Business (1) When:Within 3 Day(s) [facility]06-18-2023 Hospital Discharge instructions Patient Education 01/16/2023 14:02:47 [...] ?Scarlet fever. ?Impetigo. Fungal infections, such as Magnolia. Allergic reactions to food, medicines, or skin care products. Follow these instructions at home: The goal of treatment is to stop the itching and keep the rash from spreading. Pay attention to anychanges in your symptoms. Follow these instructions to help with your condition: Medicine Take or apply kbuj-aqa-fxwmmbf and prescription medicines only as told by [...] taking a bath with: ?Epsom salts. Follow nurse ortho instructions on the packaging. You can get these at your local pharmacy or grocery store. ?Baking soda. Pour a small amount into the bath as told by your health care provider. ?Colloidal oatmeal. Follow nurse ortho instructions on the packaging. You can get this at your local pharmacy or grocery store. Try applying baking soda paste to your skin. Stir water into baking soda until it reaches a paste-like consistency. Try applying calamine lotion. This is an eegr-zkm-dltjrev lotion that helps to relieve itchiness. Keep [...] the rash from spreading. Take or apply ggha-gjg-uymndma and prescription medicines only as told by [...] provider. Document Revised: 04/29/2022 Document Reviewed: 04/29/2022 [employer] Patient Education 2022 [employer]. Follow Up Care 01/16/2023 13:16:47 With:RANDY MAURER DO Address: [address] [place] [phone]- When: Unknown [facility] 10-04-2022 Evaluation + Plan noteExtracted from: Title:ED Note Author:Suhail III, Ceasar Qiu te:05/04/22 1. Chest wall [...] 04/28/22 Radiology* CT Abdomen/Pelvis w/contrast (enterography) 05/05/22 [facility]10-04-2022 Hospital Discharge instructions Patient Education 05/04/2022 02:50:49 [...] are safe for you. General instructions Take sfgd-fww-qfwstdw and prescription medicines only as told by [...] 07/18/2006 Document Revised: 01/18/2019 Document Reviewed: 01/18/2019 [employer] Patient Education 2020 [employer]. Follow Up Care 05/04/2022 00:04:41 With:RANDY MAURER Address: [address] [place] [phone] Business (1) When:05/07/2022 Comments:Return to the emergency room if your pain gets worse or any new symptoms [facility]09-28-2022 Evaluation + Plan note Future Scheduled Tests Laboratory* Calprotectin, Fecal 04/28/22 * Sedimentation Rate Automated 04/28/22 * C-Reactive Protein 04/28/22 [facility] 09-21-2022 Hospital Discharge instructions [...] 04/13/2005 Document Revised: 11/02/2018 Document Reviewed: 11/02/2018 [employer] Patient Education 2020 [employer]. 04/21/2022 15:01:08 Colonoscopy, Care After Surgery [facility] (Custom) Colonoscopy Care After Surgery Please read the instructions outlined below and refer to this sheet in the next few weeks. These discharge instructions provide you with general information on caring for yourself after you leave thespital. Your doctor may also give you specific [...] what activities are safe for you. Take yqox-kdd-jktyyyy and prescription medicines only as told by [...] 01/16/2013 Document Revised: 01/09/2019 Document Reviewed: 12/18/2018 [employer] Patient Education 2020 [employer]. Follow Up Care 04/12/2022 10:15:03 With:Bebeto GRANADO Address: [address] [place] [address]. [address] [place] [address] Business (1) When: Unknown Comments:Call for any problems.Office will call if follow up is needed. [facility]09-21-2022 Evaluation + Plan noteExtracted from: Title:Anesthesia post op endo Author:Zeus Avila MD Date:04/21/22 Plan Transfer/ Discharge: Patient can be discharged from PACU when criteria met. Condition good. Extracted from: Title:Anesthesia Pre-Op endo Author:Jeovany Avila MD Date:04/21/22 Plan [place] [employer]esthesiologists (ASA) physical status classification: [...] 04/28/22 Radiology* CT Abdomen/Pelvis w/contrast (enterography) 04/28/22 [facility]09-12-2022 Hospital Discharge instructions Patient Education 04/12/2022 09:50:40 [...] Follow these instructions at home: Medicines Take jtxn-nhu-emrsfdd and prescription medicines only as told by [...] Watch your condition for any changes. Take nfwd-npx-oedmgvm and prescription medicines only as told by [...] 04/27/2006 Document Revised: 11/26/2019 Document Reviewed: 11/26/2019 [employer] Patient Education 2020 [employer]. Follow Up Care 03/29/2022 10:20:42 With:Precious Garrison CNP Address: When:1 to 2 weeks [facility] 09-07-2022 Hospital Discharge instructions [...] 08/20/2005 Document Revised: 11/09/2019 Document Reviewed: 03/20/2018 [employer] Patient Education 2020 [employer]. 04/07/2022 21:28:13 Infectious Mononucleosis Infectious Mononucleosis Infectious [...] Follow these instructions at home: Medicines Take ntmk-yqw-dwjeydr and prescription medicines only as told by [...] and water are not available, use hand town justice. Keep all follow-up visits as told by [...] and water are not available, use hand town justice. Use the inside of your elbow to [...] 2001 Document Revised: 11/09/2019 Document Reviewed: 05/02/2019 [employer] Patient Education 2020 [employer] 04/07/2022 21:20:14 Labyrinthitis, Rzte-ng-Rexi Labyrinthitis Labyrinthitis is an infection of the [...] Follow these instructions at home: Medicines Take wjni-ndn-fcyucrr and prescription medicines only as told by [...] 07/18/2006 Document Revised: 05/07/2019 Document Reviewed: 07/29/2018 [employer] Patient Education 2020 [employer]. Follow Up Care 04/07/2022 17:00:25 With:RANDY MAURER Address: [address] [place] [phone] Business (1) When:04/10/2022 21:19:01 [facility]08-29-2022 Evaluation + Plan noteExtracted from: Title:ED Note [...] Pain, # 24 tab(s), Refills(s) 0, Pharmacy: [facility], 180.3, cm, 03/29/22 2:21:00 EDT, Height/Length Dosing, 127, kg, 03/29/22 2:21:00 EDT, Weight Dosing promethazine, 12.5 mg = 1 supp, Rectal, q8hr, PRN Nausea, # 10 EA, Refills(s) 0, Pharmacy: [facility], 180.3, cm, 03/29/22 [...] Date:04/12/2022 09:40:00 AM Scheduled Provider:Precious Garrison CNP Location:[facility] App[facility]ment Type:[facility]08-29-2022 Hospital Discharge instructions Patient Education 03/29/2022 05:00:10 [...] water added (diluted fruit juice). Eat bland, hiok-pt-savsop foods in small amounts as you are able. These foods include bananas, applesauce, rice, lean meats, toast, and crackers. Avoid fluids that contain a lot of sugar or caffeine, such as energy drinks, sports drinks, and soda. Avoid alcohol. Avoid spicy or fatty foods. General instructions Take usmf-toa-sncoblh and prescription medicines only as told by your health care provider. Drink enough fluid to keep your urine pale yellow. Wash your hands often using soap and water. If soap and water are not available, use hand town justice. Make sure that all people in your [...] eating and drinking to prevent dehydration. Take idpd-uat-shqyems and prescription medicines only as told by [...] 07/18/2006 Document Revised: 11/09/2019 Document Reviewed: 12/26/2018 [employer] Patient Education 2020 [employer]. 03/29/2022 05:00:10 Mesenteric Adenitis, Adult Mesenteric Adenitis, [...] fever. Follow these instructions at home: Take btqw-cnl-ukivjcx and prescription medicines only as told by [...] 10/31/2017 Document Revised: 04/06/2019 Document Reviewed: 10/31/2017 [employer] Patient Education 2020 [employer]. Follow Up Care 03/29/2022 02:15:08 With:Bebeto GRANADO Address: [address] [place] [phone] Business (1) When:04/01/2022 With:RANDY MAURER Address: [address] [facility] [address]- Business (1) When:Within 3 Day(s) [facility]08-21-2022 Evaluation + Plan noteExtracted from: Title:ED Note Author:Jeremy Griffin DO Date :03/21/22 Dyspnea (R06.00: Dyspnea, un specified) Nausea (R11.0: Nausea) Orders: ondansetron, 4 mg = 1 tab(s), Tab-Dis, Oral, Once, Stop date 03/21/22 5:03:00 EDT, STAT, Start date 03/21/22 5:03:00 EDT, 03/21/22 5:03:00 EDT ondansetron, 4 mg = 1 tab(s), Oral, q8hr, PRN Nausea/Vomiting, # 12 tab(s), Refills(s) 0, Pharmacy: [facility], 176.5, cm, 03/21/22 3:54:00 EDT, Height/Length Dosing, 130.2, kg, 03/21/22 3:54:00 EDT, Weight Dosing Automated Diff Basic Metabolic Panel CBC w/ Auto Diff eGFR Troponin 0 Hr. XR Chest Single View [facility]08-21-2022 Hospital Discharge instructions Patient Education 03/21/2022 06:40:12 [...] Slowly return to your usual activities. Take bxub-rlt-gfbramv and prescription medicines only as told by [...] 04/12/2002 Document Revised: 12/18/2018 Document Reviewed: 12/18/2018 [employer] Patient Education 2019 [employer]. Follow Up Care 03/21/2022 03:46:27 With:RANDY MAURER Address: [address] [place] [phone] [facility] (1) When:Within 3 Day(s) [facility]07-08-2022 Hospital Discharge instructions Patient Education 02/05/2022 16:05:52 [...] medicines that you are allergic to. Take wlul-egz-vgjlvvd and prescription medicines only as told by your health care provider. If you were given medicines to treat your reaction, do not drive until your health care provider approves. If you have hives or a rash: ?Use an kdjy-dyq-cfzahkz antihistamine as told by your health care [...] 07/18/2006 Document Revised: 01/31/2019 Document Reviewed: 01/31/2019 [employer] Patient Education 2020 [employer] 02/05/2022 16:05:31 Impetigo, Adult Impetigo, Adult [...] develop this condition: Playing sports that include woys-mm-nhwf contact with others. Having a skin condition [...] Follow these instructions at home: Medicines Take gtzi-obj-tcfgrrt and prescription medicines only as told by [...] 08/08/2015 Document Revised: 08/28/2019 Document Reviewed: 08/09/2017 [employer] Patient Education 2020 [employer]. 02/05/2022 16:05:24 BMI for Adults BMI for [...] height. This can be done either in Vietnamese ([place] or metric measurements. Note that charts are available to help you find your BMI quickly and easily without having to do these calculations yourself. To calculate your BMI in Vietnamese ([place] measurements, your health care provider will: [...] medical problems. BMI can be measured using Vietnamese measurements or metric measurements. To interpret your [...] 03/29/2005 Document Revised: 06/30/2018 Document Reviewed: 05/31/2018 [employer] Patient Education 2020 [employer]. Follow Up Care 02/05/2022 14:25:02 With:RANDY MAURER DO Address: [address] [place] [address]- When: Unknown [facility] Evaluation + Plan note No data available for this section [facility] Evaluation + Plan note Future Appointments Appointment Date:04/12/2022 09:40:00 AM Scheduled Provider:Precious Garrison CNP Location:[facility]ment Type[facility]BAD [facility] Future App[facility]ments Appointment Date:04/21/2022 03:10:00 PM Scheduled Provider: Location:[facility] Appointment Type:Surgery FT [facility] Evaluation + Plan note Future Appointments Appointment Date:11/10/2022 09:00:00 AM Scheduled Provider:Bebeto GRANADO MD Location:[facility] App[facility]ment Type:[facility] Follow Up Future Scheduled Tests Laboratory* Calprotectin, Fecal 04/28/22 * Calprotectin, Fecal 05/13/22 * Sedimentation Rate Automated 04/28/22 * C-Reactive Protein 04/28/22 [facility] Evaluation + Plan note Future Appointments Appointment Date:11/10/2022 09:00:00 AM Scheduled Provider:Bebeto GRANADO MD Location:[facility] Appointment Type:[facility] Follow Up Diagnostic Tests Pending * Calprotectin, Fecal 11/09/22 Future Scheduled Tests Laboratory* Calprotectin, Fecal 04/28/22 * Sedimentation Rate Automated 04/28/22 * C-Reactive Protein 04/28/22 [facility] Diagnosis Onset Date Resolution Status Oral magnolia [facility] Work Phone: Evaluation note* Diagnosis Onset Date Resolution Status DANILO (generalized anxiety disorder) [facility] Work Phone: Hospital Discharge instructions No data available for this section [facility] Progress note No data available for this section [facility] Summary Purpose Family History No Family History Records Found Relationship Condition Age at Onset Recorded Date/T david father Deep vein thrombosis (DVT) Unknown Not Specified Lupus Unknown Colitis Unknown family member Ulcerative colitis Unknown Advance Directives No Advanced Directives Records Found Advance Directive Response Recorded Date/ Time Advance Directives No December 04, 2019 7:33am Chief Complaint and Reason for Visit Chief Complaint Fungal infection Reason for Visit Oral magnolia Chief Complaint Fungal infection swollen tonsil/additional spots on tongue anxiety/panic attacks Reason for Visit DANILO (generalized anx iety disorder) Additional Source Comments Care Team (unrecognized sect ion and content) Team Status: Active Member Role Status Dates Randy Maurer DO Primary Care Provider Active Team Status: Inactive Member Role Status Dates Randy Maurer DO Primary Care Provider Active Start: November 24, 2023 End: November 24, 2023 Tracey Garcia APRN NP-[facility] Attending Provider Act lydia Start: November 24, 2023 End: November 24, 2023 Team Status: Inactive Member Role Status Dates Randy Maurer DO Primary Care Provider Active Start: November 30, 2023 End: November 30, 2023 Tracey Garcia APRN NP-[facility] Attending Provider Act lydia Start: November 30, 2023 End: November 30, 2023 Team Status: Inactive Member Role Status Dates Randy Maurer DO Primary Care Provide r, Attending Provider Active Start: December 02, 2023 End: December 02, 2023 (unrecognized sect ion and content) No Status Records FoundNo Status Records FoundNo Status Records FoundNo Status Records FoundNo Status Records FoundNo Status Records FoundNo Status Records FoundNo Status Records FoundNo Status Records FoundNo Status Records FoundNo Status Records Found INFORMATION SOURCE (unrecogn ized section and content) DATE CREATED AUTHOR 07/24/2023 [facility] DATE CREATED AUTHOR AUTHOR'S ORGANIZ ATION 06/01/2024 [facility] DATE CREATED AUTHOR AUTHOR'S ORGANIZ ATION 06/02/2024 [facility] Goals (unrecognized section and content) Goals may be documented in a n alternate section FOR RECORDS PERTAINING TO PATIENTS WHO ARE [...] BE BASED ON THE PRIMARY CLINICAL RECORDS. [facility]. provides no warranty or guarantee of the accuracy or completeness of information in this document.
--- NOTE | 2024-10-26 17:35 | ED_ITS ---
HPI HPI - General Adult General Chief complaint: Abdominal Pain Stated complaint: ABDOMINAL PAIN Time Seen by Provider: 10/26/24 17:25 Source: patient Mode of arrival: walk-in Limitations: no limitations History of Present Illness HPI narrative: Patient is a 23-year-old male who presents to the ER with concerns of left flank pain patient states symptoms started abruptly around noon accompanied by 1 episode of vomiting which she attributes to the pain more than feeling nauseous. He denies any dysuria notes the pain has been constant just painful with variations of discomfort sometimes improved with standing he notes symptoms in the left flank region and no rash she denies any fall trauma or injury he is without any diarrhea or chest pain he denies feeling short of breath. Patient appears uncomfortable holding his side. Patient states he initially presented to another ER and had lab work drawn but was unable to be taken back into a bed and decided to leave and come here because of the wait. He has his significant other with him at bedside. Onset (ago): hour(s) (5) Radiation: Reports flank (left) Severity: moderate Quality: Reports aching, sharp and constant Relieving factors: Reports none Exacerbating factors: Reports none Treatments prior to arrival: Reports none Related Data Previous Rx's ?Medication ?Instructions ?Recorded hydrocodone 5 mg-acetaminophen 325 1 tab PO Q6H PRN pain 3 days #12 10/26/24 mg tablet tabs ibuprofen 600 mg tablet 600 mg PO TID PRN pain #30 tabs 10/26/24 ondansetron HCl 4 mg tablet 4 mg PO Q6H PRN nausea and 10/26/24 vomiting #12 tabs tamsulosin 0.4 mg capsule (Flomax) 0.4 mg PO DAILY 5 days #5 caps 10/26/24 Allergies Allergy/AdvReac Type Severity Reaction Status Date / Time clindamycin Allergy Unknown Verified 10/15/23 22:45 ventolin Allergy Unknown Uncoded 10/15/23 22:45 Opioid HPI Opioid Management Most Recent Opioid Data: Last Pain Scale 6 10/15/23 23:41 10/15/23 Review of Systems ROS Constitutional Denies: fever or chills Eyes Denies: change in vision Ears, nose, mouth, and throat Denies: throat pain, neck pain or throat swelling Cardiovascular Denies: chest pain, palpitations or edema Respiratory Denies: shortness of breath, cough, wheezing or stridor Gastrointestinal Reports: abdominal pain and vomiting; Denies: diarrhea Genitourinary Denies: painful urination or urinary frequency Musculoskeletal Denies: back pain, neck pain or extremity pain Integumentary/Breast Denies: rash or itching Psychiatric Denies: anxiety PFSH PFSH Social History Smoking status: Current every day smoker Little interest or pleasure in doing things: not at all Feeling down, depressed, or hopeless: not at all Exam Narrative Exam Narrative: Nurses notes and vital signs reviewed and patient is not hypoxic. General: Appears uncomfortable holding his left flank he cannot get in a position of comfort when the pain is intense. Skin: Warm, dry, no pallor noted. No evidence of zoster like rash Head: Normocephalic, atraumatic Neck: Supple, trachea mid-line, no tenderness, no lymphadenopathy Eye: Pupils are equal, round and reactive to light, EOMI Ears, Nose, Mouth, and Throat: TM are clear, normal light reflex, oral mucosa is moist, no posterior oropharynx erythema or hypertrophy, uvula is mid-line Cardiovascular: Regular Rate and Rhythm Respiratory: Patient is in no distress, no accessory muscle use, lungs are clear to auscultation, no wheezing, rales or rhonchi. Chest Wall: no tenderness Back: non-tender, no CVA tenderness Musculoskeletal: normal ROM, no tenderness, no swelling GI: Normal bowel sounds, no tenderness to palpation, soreness in the left flank left upper abdomen, but no significant pain on deep palpation no masses appreciated. No rebound, guarding, or rigidity noted. Neurological: A&O x4 Psychiatric: Cooperative Constitutional Vital Signs, click to edit/add: Last Vital Signs Temp 97.9 F 10/26/24 17:27 Pulse 82 10/26/24 17:27 Resp 20 10/26/24 17:27 BP 151/94 H 10/26/24 17:27 Pulse Ox 97 10/26/24 17:27 Course Vital Signs Vital signs: Vital Signs Temperature 97.9 F 10/26/24 17:27 Pulse Rate 82 10/26/24 17:27 Respiratory Rate 20 10/26/24 17:27 Blood Pressure 151/94 H 10/26/24 17:27 Pulse Oximetry 97 10/26/24 17:27 Temperature 97.9 F 10/26/24 17:27 Pulse Rate 82 10/26/24 17:27 Respiratory Rate 20 10/26/24 17:27 Blood Pressure 151/94 H 10/26/24 17:27 Pulse Oximetry 97 10/26/24 17:27 Medical Decision Making MDM Narrative Medical decision making narrative: Patient had labs drawn at [facility] around 4 PM and we were able to obtain them noting a white blood cell count of 11.6 no significant shift platelets are 347, creatinine and BUN within normal limits at 1.1 and 13. His lipase was normal at 15 lab results from [facility] will be scanned into his chart. Liver enzymes unremarkable. Patient presents with abrupt on left flank pain severe pain causing vomiting. Patient reports father has a history of kidney stones. He denies any testicle pain. Patient agreeable to CT of the abdomen and pelvis and we will treat him with IV Toradol Zofran and 2 mg IV morphine Patient noted pain to be significantly more tolerable we discussed his labs drawn at [facility] urinalysis here indicating blood cultures pending but there is no evidence of infection we discussed his CT scan showing mild left hydronephrosis 2 mm calculus in the left proximal ureter that we would expect a past on its own he will strain his urine given his evidence of right renal callus measuring 3 mm we recommend he follow-up with urology as he has a family history of kidney stones as well. He will try to collect his stone for analyzation with urology follow-up outpatient he may return to the ER if symptoms abruptly worsen or new symptoms develop. We discussed his medications to focus on Tylenol Motrin and Zofran for nausea Flomax to relax his bladder discussed in layman's terms if he needs breakthrough pain relief he may try the Treece with a small prescription prescribed he is not to drive or work with a norco prescription patient was thankful The patient is to followup with primary care physician in next 2-3 days or to return to the emergency department should any of the signs or symptoms worsen or new symptoms develop. Patient had questions answered. The patient agrees with the following Diagnosis and Treatment plan and the patient will be discharged home. Medical Records Medical records reviewed: Yes I reviewed the patient's medical records Lab Data Labs: Lab Results 10/26/24 Range/Units 17:43 Urine Color Yellow (YELLOW) Urine Clarity Clear (CLEAR) Urine pH 6.0 (5.0-9.0) Ur Specific [place] 1.020 (1.005-1.025) Urine Protein Trace (NEG/TRACE) mg/dL Urine Glucose (UA) Negative (NEGATIVE) mg/dL Urine Ketones Trace A (NEGATIVE) mg/dL Urine Occult Blood Large A (NEGATIVE) Urine Nitrite Negative (NEGATIVE) Urine Bilirubin Negative (NEGATIVE) Urine Urobilinogen 0.2 (0.2-1.0) EU/dL Ur Leukocyte Esterase Negative (NEGATIVE) Urine RBC 75-100 A (0-2) #/HPF Urine WBC None seen (NONE SEEN) #/HPF Ur Squamous Epith Cells Few A (NONE/RARE) #/LPF Urine Crystals None seen (None Seen) #/HPF Urine Bacteria Small A (NONE SEEN) #/HPF Urine Casts None seen (NONE SEEN) #/LPF Urine Mucus Small A (NONE SEEN) Ur [place] [place] Discharge Chief Complaint: Abdominal Pain Clinical Impression: Acute left flank pain, Ureterolithiasis, Kidney stone on right side Patient Disposition: Home, Self-Care Time of Disposition Decision: 18:29 Condition: Good Prescriptions / Home Meds: New ondansetron HCl 4 mg tablet 4 mg PO Q6H PRN (Reason: nausea and vomiting) Qty: 12 0RF ibuprofen 600 mg tablet 600 mg PO TID PRN (Reason: pain) Qty: 30 0RF tamsulosin [Flomax] 0.4 mg capsule 0.4 mg PO DAILY 5 Days Qty: 5 0RF hydrocodone-acetaminophen 5-325 mg tablet 1 tab PO Q6H PRN (Reason: pain) 3 Days Qty: 12 0RF Print Language: Spanish Instructions: Kidney Stones (ED), Ureteral Stones (ED) Additional Instructions: Please call [facility]: call for appt to be seen Referrals: Randy Maurer DO [Primary Care Provider] - 1 week Ede Cazares MD [Physician] - As soon as possible
[2024-10-26] MEDS: KETOROLAC TROMETHAMINE 30 MG/ML VIAL IVP (17:51)
[2024-10-26] MEDS: ONDANSETRON PF 4 MG/2 ML VIAL IV (17:51)
[2024-10-26] MEDS: MORPHINE SULFATE 2 MG/ML SYRINGE IV (17:51)
[2024-10-26 18:06] LABS: Bilirubin Urine NEGATIVE (NEGATIVE); Blood Urine LARGE (NEGATIVE); Clarity Urine CLEAR (CLEAR); Color Urine YELLOW (YELLOW); Glucose Urine UA NEGATIVE (NEGATIVE); Ketones Urine TRACE mg/dL (NEGATIVE); Leukocyte Esterase Urine NEGATIVE (NEGATIVE); Nitrite Urine NEGATIVE (NEGATIVE); Protein Urine TRACE mg/dL (NEG/TRACE); Urobilinogen Urine 0.2 EU/dL (0.2-1.0)
[2024-10-26 18:15] LABS: Bacteria Urine SMALL #/HPF (NONE SEEN); Cast Seen? NONE SEEN #/LPF (NONE SEEN); Crystals Seen? None Seen #/HPF (None Seen); Mucus Urine SMALL (NONE SEEN); RBC Urine 75-100 #/HPF (0-2); Squamous Epithelial Cell Urine FEW #/LPF (NONE/RARE); Urine Culture Indicated YES-FRMC; WBC Urine NONE SEEN #/HPF (NONE SEEN)
[2024-10-26] MEDS: TAMSULOSIN HCL 0.4 MG CAPSULE PO (18:44)
[2024-10-26 18:52] VITALS: BP 149/97; PULSE 80; O2SAT 98
== END 2024-10-26 18:54 | disposition home or self-care (01) ==
PROVIDERS: Personal Emergency Response Attendant; Emergency Provider Emergency Medicine; PCP Internal Medicine
DX: N13.2 Hydronephrosis with renal and ureteral calculous obstruction (principal); R10.9 Unspecified abdominal pain; F17.200 Nicotine dependence, unspecified, uncomplicated
CPT/HCPCS: 74176; 81001; 87086; 96374; 96375; 99285; J1885; J2270; J2405

== ENCOUNTER 2025-07-25 21:29 | Emergency (ER) | payer OTHER, SELFPAY ==
--- OUTSIDE RECORDS SUMMARY | 2024-12-17 05:30 | XMS_ITS ---
Author Organization [facility] Servic es Address [address] [place] [address] Care Team Providers Care Tax Associate Name Role Phone Josie Raphael Primary Care Provider [phone] Bogdan Bernabe [facility] [phone] REASON FOR VISIT FILLING Encounters Encounter Location Date Provider Diagnosis [facility] [place] [address] [address] 12/17/2024 Bogdan Bernabe Plan Of Treatment No Information Progress Notes * CORBY LAW JrDOB:2000 (24 yo M)Acc No.[id number]:12/17/2024 Patient:?CORBY LAW Jr :?Bogdan Bernabe DDSDOB:2000???Age:23 Y ???Sex:MaleDate:12/17/2024Phone:[phone]:[address] [facility] [address] [place], [place]Zlk:Josie Murillo Subjective: * Chief Complaints: * F ILLING * Electronic signature of Bogdan Bernabe DDS on 07/25/2025 at 10:52 PM ESTSign off status: Pending * Provider: Evangelina Bernabe DDS Date: 0 12/17/2024 Generated for Printing/Faxing/eTransmitting on:?07/25/2025 10:52 PM EST
--- OUTSIDE RECORDS SUMMARY | 2025-05-21 11:30 | XMS_ITS ---
Author Organization [facility] Servic es Address [address] [place] [address] Care Team Providers Care Transport Truck Driver Name Role Phone Josie Raphael Primary Care Provider [phone] Bogdan Bernabe [facility] [phone] REASON FOR VISIT FILLING Encounters Encounter Location Date Provider Diagnosis [facility] [place] [address] [address] 05/21/2025 Bogdan Bernabe Plan Of Treatment No Information Progress Notes * CORBY LAW JrDOB:2000 (24 yo M)Acc No.[id number]:05/21/2025 Patient:?CORBY LAW Jr :?Bogdan Bernabe DDSDOB:2000???Age:24 Y ???Sex:MaleDate:05/21/2025Phone:[phone]:[address] [facility] [address] [place], [place]Tgq:Josie Murillo Subjective: * Chief Complaints: * F ILLING * Electronic signature of Bogdan Bernabe DDS on 07/25/2025 at 10:52 PM ESTSign off status: Pending * Provider: Evangelina Bernabe DDS Date: 1 Generated for Printing/Faxing/eTransmitting on:?07/25/2025 10:52 PM EST
[2025-07-25 21:35] VITALS: BP 139/83; PULSE 116; TEMP 39.5; O2SAT 95; BMI 39.7
[2025-07-25] MEDS: ACETAMINOPHEN 500 MG TABLET 1000 MG PO (21:51)
[2025-07-25] MEDS: ONDANSETRON 4 MG RAPDIS TABLET SL (21:51)
[2025-07-25] MEDS: IBUPROFEN 400 MG TABLET 800 MG PO (21:51)
[2025-07-25 21:58] LABS: SARS-CoV-2 Ag NEGATIVE (NEGATIVE)
[2025-07-25 22:25] VITALS: TEMP 38.3
--- NOTE | 2025-07-25 22:29 | XR_ITS ---
[place] [id number] Patient Name: CORBY LAW MRN: [id number] date: 2000 Sex: M Assigned Patient Location: ER Current Patient Location: Accession/Order Number: [id number] Exam Date: 07/25/2025 22:40 Report Date: 07/26/2025 08:14 At the request of: NISHANT JUNIOR MD Procedure: XR chest 2V XR chest 2V 07/25/2025 10:49 PM SIGNS AND SYMPTOMS: ^coogh fever ^N PROTOCOL: Frontal and lateral radiographs of the chest COMPARISON: None FINDINGS: The trachea is midline. The heart and mediastinal structures are within normal limits. The lung parenchyma is clear. The bony thorax is intact. XR/XR chest 2V IMPRESSION: No acute cardiopulmonary pathology. Impression dictated by: Grayson Kurtz M.D. 07/26/2025 8:14 AM Dictation Location: [place] [address] Electronically authenticated by: [id number] Y Date: 07/26/2025 08:14
--- OUTSIDE RECORDS SUMMARY | 2025-07-25 22:52 | XMS_ITS | Clinical Summary ---
Author Organization [facility] Address [address] [place] [address] Care Team Providers Care Photographic Equipment Assembler Name Role Phone Randy Maurer Primary Care Provider [phone] Allergies Active AllergyReactionsCriticalityNoted JzwsYgothuouYtfnewefy17/01/2022 Other Reaction(s): hives, Unknown Ewenvddnrkl42/01/2022 Other Reaction(s): Unknown Medications MedicationSigDispense QuantityRefillsLast FilledStart DateEnd DateStatus ondansetron (Zofran) 8 MG tablet Take by mouth.Active fluticasone (Flonase) 50 MCG/ACT nasal spray Indications:Dysfunction of both eustachian tubesAdminister 2 sprays into each nostril in the morning. Shake gently. Before first use, prime pump. After use, clean tip and replace cap.. 16 g ctive Active Problems ProblemNoted DateDiagnosed DateBilateral naazmhir98/02/2023hronic reactive otitis externa of both ears06/02/2023ysfunction of both eustachian tubes 06/02/2023Other acute hfhwrsqia68/02/8949Jqmenz86/02/2023AD (generalized anxiety disorder)06/02/2023Irritable bowel syndrome with both constipation and eaylxdff65/02/2023 Family History Medical HistoryRelationNameCommentsClotting disorderFatherHypothyroidismMother LupusMotherRelationNameStatusCommentsFatherAliveMother Social History Tobacco UseTypesPacks/DayYears UsedDateSmoking Tobacco: NeverSmokeless Tobacco: Never Tobacco Cessation:Counseling Given: Not Answered Alcohol UseStandard Drinks/WeekCommentsNot Currently0 (1 standard drink = 0.6 oz pure alcohol)caffeine intake: 2-3 cups per daySex and Gender InformationValue Date RecordedSex Assigned at JbsktYioz36/02/2023 9:19 PM EDTLegal SexMale 10/13/2022 7:25 PM EDTGender CuddegulTvek86/02/2023 9:19 PM EDTSexual XnjykxcdxijIramlewo71/02/2023 9:19 PM EDT Last Filed Vital Signs Vital SignReadingTime TakenCommentsBlood Sidqunds435/8306/03/2023 11:49 AM EDT Pulse--Temperature--Respiratory Rate--Oxygen Saturation--Inhaled Oxygen Concentration--Tugdow533 kg (278 lb)06/03/2023 11:49 AM ZGVRjufwq855.3 cm (5' 11 )06/03/2023 11:49 AM EDTBody Mass Index38.7706/03/2023 11:49 AM EDT Plan of Treatment Not on file Insurance Care Teams Team MemberRelationshipSpecialtyStart DateEnd Date Randy Maurer DO PCP - GeneralInternal Gtjywudy68/1/23
--- OUTSIDE RECORDS SUMMARY | 2025-07-25 22:52 | XMS_ITS | Patient Health Record ---
Author Organization [facility] Serv[facility] Address [address] [place] [address] Care Team Providers Care Attending Pathologist Name Role Phone Josie Raphael Primary Care Provider Bogdan Bernabe Unavailable [phone] Bridget Coleman Unavailable [phone] Allergies Allergen (clinical drug ingredient) Drug/Non Drug Allergy documented on EMR Reaction Allergy Type Onset Date Status albuterol Ventolin HFA Unknown Drug Allergy ActiveclindamycinClindamycinUnknownDrug AllergyActive Reason For Referral No Information Medications Medication SIG (Take, Route, Frequency, Duration) Notes Start Date End Date Status Ibuprofen 800 MG Tablet 1 tablet with fo od or milk as needed Orally Three times a day 5Active Encounters Encounter Location Date Provider Diagnosis [facility] [address] [place] [address] 09/21/2024 [facility] [place] [address]/5Arenata Bernabe Encounter for dental examination and cleaning with abnormal findings Z01.21 ; Disturbances in tootheruption K00.6 ; Other dental procedure status Z98.818 and Dental caries on pit and fissure surfacepenetrating into dentin K02.52[facility] [place] [address]/18/2025Cassie VirginiaAcute gingivitis, plaque induced K05.00[facility]19[facility] [place] [address]/Fiorella Kennedy CastilloDental caries on pit and fissure surface penetrating into dentin K02.52[facility] [place] [address]/Fiorella Kennedy CastilloNecrosis of pulp K04.1 and Dental caries on pit and fissure surface penetrating into dentin K02.[address] [place] [address]/gnish GholekarDental caries on pit and fissure surface penetrating into dentin K02.52 Assessments Encounter Date Diagnosis (ICD Code) Assessment Notes Treatment Notes Treatment Clinical Notes Section Notes 01/21/2025 Dental caries on pit and fissure surface penetrating into dentin (ICD-10 - K02.52) 01/11/2025Dental caries on pit and fissure surface penetrating into dentin (ICD- 10 - K02.52)09/19/2024Necrosis of pulp (ICD-10 - K04.1)09/18/2024ute gingivitis, plaque induced (ICD-10 - K05.00)09/18/2024Encounter for dental examination and cleaning with abnormal findings (ICD-10 - Z01.21)09/19/2024 Dental caries on pit and fissure surface penetrating into dentin (ICD-10 - K02.52)09/18/2024Disturbances in tooth eruption (ICD-10 - K00.6)09/18/2024Other dental procedure status (ICD-10 - Z98.818)09/18/2024Dental caries on pit and fissure surface penetrating into dentin (ICD-10 - K02.52) Plan Of Treatment No Information Insurance Providers Payer Name Payer Address Payer Phone Subscriber Number Group Number Insured Name Patient Relationship to Insured Coverage Start Date Coverage End Date z[employer] CHP-terme d 08/31/22 [address] [place] [address] [id number] CORBY LAW Self - patient is the insured 2 3 [employer] [place] Medicaid [address] [place] [address] [id number] CORBY LAW Self - patient is the insured 3 zMEDICAID CFC after [facility] CHP-termed 08/31/22[address] [place] [address] [id number], ROBERTSelf - patient is the insured [facility] [address] [place] [phone] [id number], ROBERTSdesiree - patient is the jqmwnjc4909/01/2022zDENTAL [facility] [place]-ter[place] 08/31/22[address] [place] [phone] [id number], ROBERTSelf - patient is the hstslmp2405/18/2022 08/31/2022zDental MEDICAID CFC after [facility] CHP-termed 08/31/[address] [place] [id number], ROBERTSelf - patient is the [id number] UHC [place] MedicaidPO [address] [place] [id number], ROBERTSelf - patient is the lsuevit45/4Dental [facility] [address] [place] [address] [id number], ROBERTSelf - patient is the insured 3Dental UHC [employer] [place] MedicaidPO [address] [place] [address] [phone], ROBERTSelf - patient is the barpznz6209/18/2024
--- NOTE | 2025-07-25 23:25 | ED.URI1 ---
HPI - URI/Sore Throat General Chief Complaint: Upper Respiratory Infection Stated Complaint: FEVER, CHILLS Time Seen by Provider: 07/25/25 23:05 Source: patient Limitations: no limitations History of Present Illness HPI Narrative: patient ill since yesterday. Presents with fever and cough. Cough better today than yesterday. Not short of breath. No associated nausea or vomiting. Complains of his head feeling hot and his body is cold. No skin rash or neck stiffness Related Data Home Medications ?Medication ?Instructions ?Recorded ?Confirmed No Known Home Medications 07/25/25 07/25/25 Allergies Allergy/AdvReac Type Severity Reaction Status Date / Time clindamycin Allergy Unknown Hives Verified 07/25/25 21:35 ventolin Allergy Unknown Hives Uncoded 07/25/25 21:35 Review of Systems ROS Status of ROS 10 or more systems reviewed and unremarkable except as noted in history and below [facility] Social History Smoking status: Current every day smoker Little interest or pleasure in doing things: not at all Feeling down, depressed, or hopeless: not at all Exam Constitutional Vital Signs, click to edit/add: Last Vital Signs Temp 101.0 F H 07/25/25 22:25 Pulse 116 H 07/25/25 21:35 Resp 18 07/25/25 21:35 BP 139/83 07/25/25 21:35 Pulse Ox 95 07/25/25 21:35 O2 Del Method Room Air 07/25/25 21:35 Common normals: no apparent distress, average body habitus, oriented x3, no limitations, healthy appearing, alert and well nourished [facility] Common normals: normocephalic and head/scalp atraumatic Eye Common normals: EOMs intact bilaterally and conjunctivae normal Respiratory Common normals: normal respiratory effort, no retractions, no use of accessory muscles and clear to auscultation bilaterally Cardio Common normals: S1 normal heart sound and S2 normal heart sound Rate: tachycardic GI Common normals: Normal to inspection, nondistended, normoactive bowel sounds present, soft to palpation and non-tender Extremity Common normals: normal to inspection and full ROM Neuro Common normals: oriented x3, CN's II-XII intact bilaterally, moves all extremities and no focal motor deficits Psych Appearance: grossly normal Course Vital Signs Vital signs: Vital Signs Temperature 103.1 F H 07/25/25 21:35 Pulse Rate 116 H 07/25/25 21:35 Respiratory Rate 18 07/25/25 21:35 Blood Pressure 139/83 07/25/25 21:35 Pulse Oximetry 95 07/25/25 21:35 Oxygen Delivery Method Room Air 07/25/25 21:35 Temperature 101.0 F H 07/25/25 22:25 Pulse Rate 116 H 07/25/25 21:35 Respiratory Rate 18 07/25/25 21:35 Blood Pressure 139/83 07/25/25 21:35 Pulse Oximetry 95 07/25/25 21:35 Oxygen Delivery Method Room Air 07/25/25 21:35 MDM - URI/Sore Throat MDM Narrative Medical decision making narrative: patient presents with headache. Head feels hot. Body chills. mild cough and neg dyspnea. Increased fever today and this is why he came in. fever 103 at triage. Decreased to 101 after motrin and tylenol. Influenza A is positive. Patient informed of the results of the swab. Discussed performing more test including blood test but he did not feel this was necessary. Given dose of tamiflu and discharged home with a prescription for Tamiflu Lab Data Labs: Lab Results 07/25/25 Range/Units 21:39 Influenza Type A Ag Positive A Influenza Type B Ag Negative SARS-CoV-2 Ag (CV2AG) Negative (NEGATIVE) Discharge Plan Discharge Chief Complaint: Upper Respiratory Infection Clinical Impression: Influenza A (H1N1) Patient Disposition: Home, Self-Care Prescriptions / Home Meds: No Action No Known Home Medications Print Language: Grenadian Instructions: Influenza (ED) Additional Instructions: drink plenty of fluids. use ibuprofen and tylenol for fever and headache. return if any worsening. Referrals: Randy Maurer DO [Primary Care Provider, Internal Medicine] - 1 week
[2025-07-25] MEDS: OSELTAMIVIR PHOSPHATE 75 MG CAPSULE PO (23:40)
[2025-07-25 23:51] VITALS: TEMP 37.6
== END 2025-07-25 23:52 | disposition home or self-care (01) ==
PROVIDERS: Emergency Provider Internal Medicine; PCP Internal Medicine
DX: J10.1 Influenza due to other identified influenza virus with other respiratory manifestations (principal); R50.9 Fever, unspecified; R05.9 Cough, unspecified
CPT/HCPCS: 71046; 87804; 87811; 99283; Q0162